=== PATIENT | male | born 1955 | race Caucasian/White ===

== ENCOUNTER 2021-09-25 11:27 | Outpatient (REF) | payer OTHER, SELFPAY ==
[2021-09-25 14:10] LABS: Appearance Urine CLEAR; Color Urine YELLOW; Glucose Urine UA NEG (NEG); Leukocyte Esterase Urine NEG (NEG); Nitrite Urine NEG (NEG); Specific Gravity - Urine 1.025 (1.005-1.025); Urine Blood NEG (NEG); Urine Ketones NEG (NEG); Urine Protein TRACE MG/DL (NEG-TRACE)
[2021-09-25 14:17] LABS: Estimated Average Glucose 157 mg/dL; Hemoglobin A1c % 7.1 %
[2021-09-25 14:21] LABS: Alanine Aminotransferase 17 U/L (0-40); Albumin Level 4.3 g/dL (3.5-5.0); Alkaline Phosphatase 88 U/L (39-117); Anion Gap 13 (12-20); Aspartate Amino Transferase 13 U/L (5-37); Bilirubin Total 0.4 mg/dL (0.0-1.0); Blood Urea Nitrogen 19 mg/dL (9-16); Calcium 9.1 mg/dL (8.4-10.2); Carbon Dioxide 25 mmol/L (22-29); Chloride 107 mmol/L (96-108); Cholesterol 167 mg/dL; Estimated Glomerular Filt Rate > 60; Glucose Fasting 119 mg/dL (60-99); HDL Cholesterol 32 mg/dL; LDL Cholesterol Calculated 116 mg/dl; Potassium 4.1 mmol/L (3.3-5.1); Sodium 141 mmol/L (135-145); Triglycerides 96 mg/dL
[2021-09-25 14:28] LABS: RBC Urine 0-2 /HPF (0); WBC Urine 0 /HPF (0-4)
[2021-09-25 14:39] LABS: TSH reflex Free T4 2.34 uIU/mL (0.32-4.0)
[2021-09-25 14:40] LABS: Microalbum/Creatinine Ratio Ur 122.8 ug/mg cr
[2021-09-25 15:18] LABS: Prostate Specific Antigen Scr 3.96 ng/mL (<0.05-4.0)
== END 2021-09-25 11:28 | disposition home or self-care (01) ==
LOC: HO.HMGCLDS 11:27
PROVIDERS: Visit Provider Internal Medicine
DX: Z00.00 Encounter for general adult medical examination without abnormal findings (principal); Z12.5 Encounter for screening for malignant neoplasm of prostate; E11.9 Type 2 diabetes mellitus without complications; I10 Essential (primary) hypertension
CPT/HCPCS: 36415; 80053; 80061; 81001; 82043; 83036; 84153; 84443

== ENCOUNTER 2022-03-19 08:50 | Outpatient (REF) | payer OTHER, SELFPAY ==
[2022-03-19 12:12] LABS: Creatinine Urine 124.76 mg/dL; Microalbum/Creatinine Ratio Ur 194.7 ug/mg cr
[2022-03-19 12:18] LABS: Estimated Average Glucose 131 mg/dL; Hemoglobin A1c % 6.2 %
[2022-03-19 12:32] LABS: Alanine Aminotransferase 14 U/L (0-40); Albumin Level 4.3 g/dL (3.5-5.0); Alkaline Phosphatase 83 U/L (39-117); Anion Gap 16 (12-20); Aspartate Amino Transferase 14 U/L (5-37); Bilirubin Total 0.8 mg/dL (0.0-1.0); Blood Urea Nitrogen 18 mg/dL (9-16); Calcium 8.8 mg/dL (8.4-10.2); Carbon Dioxide 26 mmol/L (22-29); Chloride 104 mmol/L (96-108); Cholesterol 148 mg/dL; Estimated Glomerular Filt Rate > 60; Glucose Fasting 105 mg/dL (60-99); HDL Cholesterol 29 mg/dL; LDL Cholesterol Calculated 104 mg/dl; Potassium 4.6 mmol/L (3.3-5.1); Sodium 141 mmol/L (135-145); Triglycerides 79 mg/dL
== END 2022-03-19 08:51 | disposition home or self-care (01) ==
LOC: HO.HMGCLDS 08:50
PROVIDERS: PCP Internal Medicine; Visit Provider Internal Medicine
DX: E11.9 Type 2 diabetes mellitus without complications (principal); E78.5 Hyperlipidemia, unspecified; I10 Essential (primary) hypertension
CPT/HCPCS: 36415; 80053; 80061; 82043; 83036

== ENCOUNTER 2022-08-28 15:09 | Outpatient (REF) | payer OTHER, SELFPAY ==
--- NOTE | ~2022-08-28 | CT_ITS ---
EXAMINATION: CT CHEST SCREENING CLINICAL INFORMATION: 54 pack year history. Current smoker. COMPARISON: None. TECHNIQUE: Multidetector volumetric CT imaging of the chest is performed without contrast using low dose technique. Additional 2D coronal and sagittal reformatted images and axial 3D maximum intensity projection (MIP) images are generated on the CT workstation. This CT examination was performed using dose optimization techniques as appropriate, variously including the following: *Automated exposure control *Adjustment of mA and/or kV according to patient size (this includes techniques or standardized protocols for targeted exams where dose is matched to indication/reason for exam; i.e. extremities or head) *Use of iterative reconstruction technique DLP: 160 mGy-cm FINDINGS: LUNGS: Innumerable peripheral or subpleural pulmonary nodules. Largest nodules are measured. 9 mm peripheral or subpleural anterior right upper lobe nodule axial image 117 series 6. 10 mm peripheral or subpleural anterior right upper lobe nodule axial image 151 and 170 series 6. 9 mm peripheral or subpleural left lower lobe nodule axial image 375 series 6. 10 mm peripheral or subpleural right lower lobe nodule axial image 378 series 6. It is possible some of these described peripheral or subpleural nodules actually corresponds to nodular pleural thickening. Focal bronchiolectasis and atelectasis or small infiltrate in the posterior basal left lower lobe. Mild subsegmental atelectasis in the inferior segment of the lingula. MEDIASTINUM: Small mediastinal lymph nodes. No enlarged lymph nodes. Normal heart size. Moderate coronary artery calcification. No pericardial effusion. Upper normal-size thoracic aorta. CORONARY ARTERY CALCIFICATION: Moderate PLEURA: No pleural effusion. No pleural calcification. It is possible some of the previously described peripheral or subpleural pulmonary nodules could represent nodular pleural thickening. AXILLA: Small bilateral axillary lymph nodes. No enlarged axillary lymph nodes or chest wall mass. UPPER ABDOMEN: Left renal cysts. No imaging follow-up recommended. OSSEOUS STRUCTURES: Degenerative changes of the spine. CT/CT lung screening IMPRESSION: Innumerable peripheral or subpleural pulmonary nodules versus nodular pleural thickening. Largest nodules measure 11 mm. No pleural effusion or pleural calcification. Focal bronchiectasis and atelectasis or small infiltrate at the left lung base. Moderate coronary artery calcification. ASSESSMENT: Lung-RADS category 4A: Suspicious RECOMMENDATION: Short-term low-dose chest CT follow-up recommended.
== END 2022-08-28 15:10 | disposition home or self-care (01) ==
LOC: HO.CT 15:09
PROVIDERS: PCP Internal Medicine; Visit Provider Physician Assistant Medical
DX: Z12.2 Encounter for screening for malignant neoplasm of respiratory organs (principal); F17.210 Nicotine dependence, cigarettes, uncomplicated
CPT/HCPCS: 71271; G0296

== ENCOUNTER 2022-10-19 08:30 | Outpatient (REF) | payer OTHER, SELFPAY ==
[2022-10-19 11:51] LABS: Creatinine Urine 117.95 mg/dL; Microalbum/Creatinine Ratio Ur 170.4 ug/mg cr
[2022-10-19 11:55] LABS: Estimated Average Glucose 137 mg/dL; Hemoglobin A1c % 6.4 %
[2022-10-19 12:05] LABS: Alanine Aminotransferase 10 U/L (0-40); Alkaline Phosphatase 82 U/L (39-117); Anion Gap 12 (12-20); Aspartate Amino Transferase 11 U/L (5-37); Bilirubin Total 0.6 mg/dL (0.0-1.0); Blood Urea Nitrogen 15 mg/dL (9-16); Calcium 8.6 mg/dL (8.4-10.2); Carbon Dioxide 27 mmol/L (22-29); Chloride 108 mmol/L (96-108); Cholesterol 149 mg/dL; Estimated Glomerular Filt Rate > 60; Glucose Fasting 137 mg/dL (60-99); HDL Cholesterol 30 mg/dL; LDL Cholesterol Calculated 102 mg/dl; Potassium 4.2 mmol/L (3.3-5.1); Sodium 143 mmol/L (135-145); Total Protein 6.6 g/dL (6.5-8.0); Triglycerides 88 mg/dL
[2022-10-19 12:08] LABS: PSA,Total (Free>4and<10) 4.93 ng/mL (0.00-4.00)
[2022-10-21 23:39] LABS: Free Prostate Spec Ag 0.9 ng/mL; Percent Free Prostate Spec Ag 23 % (calc) (>25)
== END 2022-10-19 08:31 | disposition home or self-care (01) ==
LOC: HO.HMGCLDS 08:30
PROVIDERS: PCP Internal Medicine; Visit Provider Internal Medicine
DX: Z00.00 Encounter for general adult medical examination without abnormal findings (principal); Z12.5 Encounter for screening for malignant neoplasm of prostate; I10 Essential (primary) hypertension; E78.5 Hyperlipidemia, unspecified; E11.9 Type 2 diabetes mellitus without complications
CPT/HCPCS: 36415; 80053; 80061; 82043; 83036; 84153; 84154

== ENCOUNTER 2023-01-18 08:55 | Outpatient (REF) | payer OTHER, SELFPAY ==
[2023-01-19 10:34] LABS: Percent Free Prostate Spec Ag 24 % (calc) (>25); Prostate Specific Ag Total 4.1 ng/mL (< OR = 4.0)
== END 2023-01-18 08:56 | disposition home or self-care (01) ==
LOC: HO.HMGCLDS 08:55
PROVIDERS: PCP Internal Medicine; Visit Provider Internal Medicine
DX: Z12.5 Encounter for screening for malignant neoplasm of prostate (principal); E11.9 Type 2 diabetes mellitus without complications; E78.5 Hyperlipidemia, unspecified; I10 Essential (primary) hypertension; I25.10 Atherosclerotic heart disease of native coronary artery without angina pectoris; I25.84 Coronary atherosclerosis due to calcified coronary lesion; N40.0 Benign prostatic hyperplasia without lower urinary tract symptoms; R97.20 Elevated prostate specific antigen [PSA]
CPT/HCPCS: 36415; 80053; 80061; 83036; 84153; 84154; 85025

== ENCOUNTER 2023-01-20 10:18 | Outpatient (AMB) | payer OTHER, SELFPAY ==
[2023-01-20 10:30] VITALS: BP 118/74; PULSE 57; O2SAT 95; BMI 30.3
--- NOTE | 2023-01-20 10:30 | MHC.PC.OV ---
Vital Signs 01/20/23 10:30 Height 5 ft 11 in Weight 217 lb BMI 30.3 BP 118/74 Blood Pressure Location Lt brachial Position Sitting Pulse 57 Pulse Source Pulse Oximeter Pulse Oximetry (%) 95 Oxygen Delivery Method Room Air Intake Visit Reasons: 3m follow up Intake Note: Pt is here today for 3 months follow up visit. Allergies Penicillins Allergy (Verified 01/20/23 10:35) Rash [id number] Reductase Inhibitor Adverse Reaction (Intermediate, Verified 01/20/23 10:35) LEG PAIN Medication List - Last Reconciled 01/20/23 by Beronica Kim MD amlodipine 10 mg PO DAILY atenolol 100 mg PO DAILY doxazosin 4 mg PO DAILY gabapentin 600 mg PO BEDTIME gabapentin 300 mg PO BEDTIME insulin glargine (Basaglar KwikPen U-100 Insulin) 60 units (0.6 mL) subcut QPM lisinopril 20 mg PO DAILY metformin 1,000 mg PO BID miscellaneous medical supply 1 ea miscellaneous .qd pen needle, diabetic (BD Ultra-Fine Mini Pen Needle) As directed sitagliptin phosphate (Januvia) 50 mg PO DAILY tamsulosin 0.4 mg PO BEDTIME trazodone 50 mg PO BEDTIME PRN varenicline 1 mg PO BID 12 weeks Tobacco use date assessed: 07/22/22 Dental Screening Dental Screen Date: 01/20/23 Did you have a dental visit in the last 12 months?: No Did you have a dental problem in the last 6 months where you did not have access to dental care?: No Was dental information given to patient?: Patient declined HPI 3m follow up HPI Details Patient presents for the follow-up of type 2 diabetes hypertension and hyperlipidemia. Patient did not start taking Crestor stating he could not tolerated it in the past. FORMERLY [facility], [facility] Medical History (Updated 01/20/23 @ 11:18 by Beronica Kim MD) BPH (benign prostatic hyperplasia) Colonoscopy refused DM type 2 (diabetes mellitus, type 2) HTN (hypertension) Neuropathy Nicotine dependence, cigarettes, uncomplicated Sleep apnea Surgical History History of dental surgery Family History Father No problems noted. Mother Hypertension Diabetes Social History Household Members Other:: , retired, well balanced, Housing: House Patient Tobacco Use Status: Current everyday Tobacco user Tobacco use type: Cigarette Cigarettes Per Day: 10 Years Smoked: (current smoker - onset 12yo, 1-2ppd x 57yrs, now 1/2ppd - 72pyh) e-Cigarette/Vaping Use: Never Used service: Yes Current occupational status: retired Cognitive needs: No Hearing needs: No Vision needs: Yes Questionnaire Thrive Questionnaire Date Thrive assessed: 10/21/22 DOMONIQUE-7 AMB Questionnaire DOMONIQUE-7 Date DOMONIQUE - 7 assessed: 10/21/22 Source: Developed by Drs. Reji Gay, Melissa Bacon, Kiko De La Torre and colleagues, with an educational feliciano from [employer]. Review of Systems Const All systems reviewed & are unremarkable except as noted in HPI and below Reports no additional complaints Eyes Reports no additional complaints ENT Reports no additional complaints Card Reports no additional complaints Resp Reports no additional complaints GI Reports no additional complaints Reports no additional complaints Physical exam (Primary Care) Vital Signs: Last Vital Signs Pulse 57 01/20/23 10:30 BP 118/74 01/20/23 10:30 Pulse Ox 95 01/20/23 10:30 Oxygen Delivery Method Room Air 01/20/23 10:30 BMI result Body Mass Index 30.3 Tobacco/Smoking Status: Tobacco use Status Tobacco use date assessed 07/22/22 01/20/23 10:30 Patient Tobacco Use Status Current everyday Tobacco 01/20/23 10:30 Tobacco use type Cigarette 01/20/23 10:30 e-Cigarette/Vaping Use Never Used 01/20/23 10:30 Thrive Assessment: Date of Thrive Assessment Date Thrive assessed 10/21/22 01/20/23 10:30 Const General: no acute distress HENMT Head: Yes normal to inspection Ears: hearing grossly normal bilaterally Neck Neck: Yes supple Resp Effort & Inspection: normal respiratory effort Auscultation: clear to auscultation bilaterally Cardio Rhythm: regular rhythm Heart sounds: S1 normal heart sound present and S2 normal heart sound present GI Inspection: Yes normal to inspection Assessment and Plan Assessment & Plan (1) HTN (hypertension): Code(s): I10 - Essential (primary) hypertension Plan: Increase lisinopril to 40 mg in decrease amlodipine to 5 mg a day for microalbuminuria. Patient will continue atenolol. Check basic metabolic panel in 2 weeks and follow-up for blood pressure check in 6 weeks (2) DM type 2 (diabetes mellitus, type 2): Comment: A1c is 6.4, 11/01 Code(s): E11.9 - Type 2 diabetes mellitus without complications Plan: A1c is down to 5.7. ADA diet regular exercise discussed with the patient. Januvia will be discontinue and Farxiga 5 mg daily will be added instead. Patient will continue metformin and will decrease insulin to 50 units to avoid hypoglycemia (3) Lung nodule, multiple: Comment: CT scan 08/03, unchanged since 2015, annual Code(s): R91.8 - Other nonspecific abnormal finding of lung field (4) Microalbuminuria: Code(s): R80.9 - Proteinuria, unspecified Plan: Increase lisinopril to 40 mg and add Farxiga (5) Hyperlipidemia: Comment: intolerant to statins, patient refuses to take medications for hyperlipidemia Code(s): E78.5 - Hyperlipidemia, unspecified Orders: Orders Basic Metabolic Panel 2 Weeks E11.9 - Type 2 diabetes mellitus without complications, I10 - Essential (primary) hypertension Medications: New Farxiga (dapagliflozin propanediol) 5 mg PO DAILY 90 tabs 1RF NS amlodipine 5 mg PO DAILY 60 tabs 0RF Discontinued sitagliptin phosphate (Januvia) Discontinued Reason: Doctor's Order 50 mg PO DAILY 90 tabs 3RF amlodipine Discontinued Reason: Doctor's Order 10 mg PO DAILY 90 tabs 3RF Coding Level of Care Code Est Pt Level 4 (19975) Diagnoses HTN (hypertension) I10 DM type 2 (diabetes mellitus, type 2) E11.9 Lung nodule, multiple R91.8 Microalbuminuria R80.9 Hyperlipidemia E78.5
== END 2023-01-20 11:19 | disposition home or self-care (01) ==
PROVIDERS: Visit Provider Internal Medicine
DX: I10 Essential (primary) hypertension (principal); E11.9 Type 2 diabetes mellitus without complications; R91.8 Other nonspecific abnormal finding of lung field; R80.9 Proteinuria, unspecified; E78.5 Hyperlipidemia, unspecified
CPT/HCPCS: 99214

== ENCOUNTER → 2023-01-22 10:53 | Outpatient (REF) | payer OTHER, SELFPAY ==
--- NOTE | 2023-01-22 10:56 | CA_ITS ---
Transthoracic Echocardiogram Patient (Last, First, Middle): Garcia Brandt, Gender: Male Date of : 1955 Age: 67 Procedure Date: 01/22/2023 Procedure Type: Transthoracic Echocardiogram Location: OP Height: 180.34 cm Weight: 98.43 kg BSA: 2.18 m2 Heart Rate: 52 bpm BP: 125 / 65 mmHg Medical Officer Psychiatry: PAUL Referring MD: Beronica Kim MD Associate Designer: De Puri MD Symptoms: R06.09 - Other forms of dyspnea Study Quality: Good ECG Rhythm: Bradycardia Conclusions: - 1. Normal LV ejection fraction with mild LVH with normal filling pattern 2. Cardiac valvular Dopplers within normal limits 3. Mildly dilated ascending aorta at 3.9 cm 4. Normal RV systolic pressure 5. No gross pericardial effusion Findings Left Ventricle Normal left ventricular size and systolic function. There is mildly increased left ventricular wall thickness. The visually estimated ejection fraction is between 60-65%. Spectral Doppler is indicative of a normal filling pattern. E/E prime ratio is between 8 and 15 consistent with indeterminate filling pressures. Right Ventricle Normal right ventricular cavity size and systolic function. Atria Both atria are normal in size. There is no evidence of interatrial shunt. Aortic Valve There is mild calcification of the aortic valve. There is no aortic valve stenosis. There is no aortic valve regurgitation. Mitral Valve Normal mitral valve structure and function. There is trace mitral valve regurgitation. There is no mitral valve stenosis. Pulmonic Valve The pulmonic valve is likely normal. There is trace pulmonic valve regurgitation. Tricuspid Valve Normal tricuspid valve structure. There is mild tricuspid valve regurgitation. The right ventricular systolic pressure is normal. The right ventricular systolic pressure is 27 mmHg. Normal right atrial pressure. There is no evidence of pulmonary hypertension. Great Vessels The pulmonary artery was not well visualized. There is mild dilatation of the ascending aorta measuring 3.90 cm. Venous The inferior vena cava is normal in size and collapses greater than 50% with inspiration. Pericardium/Pleural There is no evidence of pericardial effusion. Prior Study Comparison No prior study available for comparison. Measurements 2D Linear Measurements IVSd: 1.28 0.6-0.9/0.6-1.0 cm LVIDd: 4.68 3.9-5.3/4.2-5.9 cm LVIDd Index: 2.15 2.4-3.2/2.2-3.1 cm/m2 LVIDs: 2.77 2.0-3.6 cm LVPWd: 1.22 0.7-1.1 cm LA Diam: 3.70 2.7-3.8/3.0-4.0 cm LAIDs Index: 1.70 1.5-2.3 cm/m2 LV Mass: 278.35 67-162/88-224 g LV Mass Index: 127.68 43-95/49-115 g/m2 LVOT Diam: 1.80 3.0+(-)1.3 cm 2D Systolic Function EF 4C: 56.70 >55% EF 2C: 72.80 >55% EF BiP: 66.50 >55% Mitral Valve MV Pk E: 0.97 MV PK A: 0.85 MV Decel Time: 199.00 E/A: 1.10 E'Lateral: 9.03 E'Medial: 6.20 E/E' Med: 15.60 E/E' Lat: 10.70 PHT: 58.00 MVA PHT: 3.79 Decel [place]: 4.87 Aortic Valve AoV Pk Fran: 1.51 AoV Mn Fran: 1.07 AoV VTI: 0.36 AoV Pk Grad: 9.00 Aov Mn Grad: 5.00 ROBERT Cont.VTI: 1.72 LVOT LVOT Pk Fran: 1.18 LVOT Mn Fran: 0.68 LVOT VTI: 0.24 LVOT Pk Grad: 6.00 LVOT Mn Grad: 2.00 LVOT Diam: 1.80 LVOT Area: 2.54 Diastolic Function MV Pk E: 0.97 MV Pk A: 0.85 E/A: 1.10 E'Medial: 6.20 E/E' Med: 15.60 E' Laterial: 9.03 E/E' Lat: 10.70 Right Ventricle TAPSE (mm): 25.60 TVS' Fran: 16.00 Tricuspid Valve TR Pk Fran: 2.43 TR Pk Grad: 24.00 RA Press: 3.00 RVSP: 27.00 Great Vessels Aorta Sinus of Valsalva: 3.50 2.0-3.5 cm Ao Asc: 3.90 2.1-3.4 cm Pulmonary Valve PV Pk Fran: 1.11 Peak PV Grad: 5.00 Updated in Other Vendor System with Status of Final De Puri MD electronically signed on 01/23/2023 3:16:28 PM with status of Final
== END ==
LOC: HO.CARD 10:53
PROVIDERS: PCP Internal Medicine; Visit Provider Internal Medicine
DX: I25.10 Atherosclerotic heart disease of native coronary artery without angina pectoris (principal); I25.84 Coronary atherosclerosis due to calcified coronary lesion; R06.09 Other forms of dyspnea
CPT/HCPCS: 93306

== ENCOUNTER → 2023-01-22 10:56 | Outpatient (BNV) | payer OTHER, SELFPAY | PROVIDERS: PCP Internal Medicine; Visit Provider Internal Medicine Cardiovascular Disease | DX: R06.00 Dyspnea, unspecified (principal) | CPT/HCPCS: 93306 ==

== ENCOUNTER 2023-02-04 10:06 | Outpatient (REF) | payer OTHER, SELFPAY ==
[2023-02-04 14:12] LABS: Anion Gap 14 (12-20); Blood Urea Nitrogen 18 mg/dL (9-16); Calcium 9.1 mg/dL (8.4-10.2); Carbon Dioxide 24 mmol/L (22-29); Chloride 107 mmol/L (96-108); Estimated Glomerular Filt Rate > 60; Glucose Random 83 mg/dL (60-115); Potassium 4.2 mmol/L (3.3-5.1); Sodium 141 mmol/L (135-145)
== END 2023-02-04 10:07 | disposition home or self-care (01) ==
LOC: HO.HMGCLDS 10:06
PROVIDERS: PCP Internal Medicine; Visit Provider Internal Medicine
DX: I10 Essential (primary) hypertension (principal); E11.9 Type 2 diabetes mellitus without complications
CPT/HCPCS: 36415; 80048

== ENCOUNTER 2023-03-01 09:22 | Outpatient (REF) | payer OTHER, SELFPAY ==
[2023-03-01 11:27] LABS: MANUAL DIFF FLAG NO
[2023-03-01 12:09] LABS: Hemoglobin 14.6 g/dl (14.0-18.0); Mean Corpuscular HGB Conc 32.4 g/dl (31.0-36.0); Mean Corpuscular Hemoglobin 28.5 pg (27.0-33.0); Mean Corpuscular Volume 87.7 fL (80.0-98.0); Platelet Count 231 X10*3/uL (160-400); Red Blood Count 5.13 X10*6/uL (4.60-5.80); Red Cell Distribution Width 13.5 % (11.0-16.0); White Blood Count 12.1 X10*3/uL (4.8-10.8)
[2023-03-01 12:10] LABS: Basophils Percent Auto 0.2 % (0-2); Eosinophils Absolute Auto 0.2 X10*3/uL (0.0-0.4); Eosinophils Percent Auto 1.4 % (0-4); Imm Gran Abs Auto 0.05 X10*3/uL (0.00-0.03); Imm Gran Pct Auto 0.4 % (0.0-0.4); Lymphocytes Absolute Auto 2.1 X10*3/uL (1.2-4.9); Lymphocytes Percent Auto 17.4 % (20-40); Mean Platelet Volume 9.9 fL (9.4-12.4); Monocytes Absolute Auto 0.7 X10*3/uL (0.1-1.2); Monocytes Percent Auto 6.1 % (2-11); Neutrophils Percent Auto 74.5 % (45-73)
[2023-03-01 12:41] LABS: Alanine Aminotransferase 13 U/L (0-40); Albumin Level 4.1 g/dL (3.5-5.0); Alkaline Phosphatase 69 U/L (39-117); Anion Gap 10 (12-20); Aspartate Amino Transferase 12 U/L (5-37); Bilirubin Total 0.5 mg/dL (0.0-1.0); Blood Urea Nitrogen 17 mg/dL (9-16); Calcium 9.6 mg/dL (8.4-10.2); Carbon Dioxide 27 mmol/L (22-29); Chloride 108 mmol/L (96-108); Cholesterol 144 mg/dL (<200); Estimated Glomerular Filt Rate > 60; Glucose Fasting 118 mg/dL (60-99); HDL Cholesterol 31 mg/dL (>40); LDL Cholesterol Calculated 94 mg/dL (<100); Potassium 4.1 mmol/L (3.3-5.1); Sodium 141 mmol/L (135-145); Total Protein 7.1 g/dL (6.5-8.0); Triglycerides 97 mg/dL (<150)
[2023-03-01 12:43] LABS: Estimated Average Glucose 126 mg/dL
[2023-03-01 12:54] LABS: Creatinine Urine 108.38 mg/dL
== END 2023-03-01 09:23 | disposition home or self-care (01) ==
LOC: HO.HMGCLDS 09:22
PROVIDERS: PCP Internal Medicine; Visit Provider Internal Medicine
DX: E11.9 Type 2 diabetes mellitus without complications (principal); I10 Essential (primary) hypertension; I25.10 Atherosclerotic heart disease of native coronary artery without angina pectoris; I25.84 Coronary atherosclerosis due to calcified coronary lesion; R80.9 Proteinuria, unspecified; E78.5 Hyperlipidemia, unspecified
CPT/HCPCS: 36415; 80053; 80061; 82043; 83036; 85025

== ENCOUNTER 2023-03-03 10:18 | Outpatient (AMB) | payer OTHER, SELFPAY ==
[2023-03-03 10:28] VITALS: BP 124/70; PULSE 63; O2SAT 94; BMI 29.7
--- NOTE | 2023-03-03 10:28 | MHC.PC.OV ---
Vital Signs 03/03/23 10:28 Height 5 ft 11 in Weight 213 lb BMI 29.7 BP 124/70 Blood Pressure Location Lt brachial Position Sitting Pulse 63 Pulse Source Pulse Oximeter Pulse Oximetry (%) 94 Oxygen Delivery Method Room Air Intake Visit Reasons: 6 week follow up Intake Note: Pt is here today for 6 weeks follow up visit. Allergies Penicillins Allergy (Verified 03/03/23 10:37) Rash Gjxiklb-PAJ-QlG Reductase Inhibitor Adverse Reaction (Intermediate, Verified 03/03/23 10:37) LEG PAIN dapagliflozin [From [facility]] Adverse Reaction (Verified 03/03/23 10:38) frequent urination and painful urination Medication List - Last Reconciled 03/03/23 by Beronica Kim MD amlodipine 5 mg PO DAILY atenolol 100 mg PO DAILY doxazosin 4 mg PO DAILY finasteride 5 mg PO DAILY gabapentin 600 mg PO BEDTIME gabapentin 300 mg PO BEDTIME insulin glargine (Basaglar KwikPen U-100 Insulin) 60 units (0.6 mL) subcut QPM lisinopril 20 mg PO DAILY metformin 1,000 mg PO BID miscellaneous medical supply 1 ea miscellaneous .qd pen needle, diabetic (BD Ultra-Fine Mini Pen Needle) As directed tamsulosin 0.4 mg PO BEDTIME trazodone 50 mg PO BEDTIME PRN varenicline 1 mg PO BID 12 weeks Tobacco use date assessed: 03/03/23 Dental Screening Dental Screen Date: 03/03/23 Did you have a dental visit in the last 12 months?: No Did you have a dental problem in the last 6 months where you did not have access to dental care?: No Was dental information given to patient?: Patient declined HPI 6 week follow up HPI Details Patient presents for the follow-up of type 2 diabetes hypertension hyperlipidemia. He developed increased urinary frequency from [facility] and stopped taking it after 2 weeks. Patient still reports increased urinary frequency and incomplete bladder emptying nocturia and dysuria for 3 weeks. He denies fever chills back pain nausea vomiting. [facility] Medical History (Updated 03/03/23 @ 15:05 by Beronica Kim MD) BPH (benign prostatic hyperplasia) Colonoscopy refused DM type 2 (diabetes mellitus, type 2) HTN (hypertension) Neuropathy Nicotine dependence, cigarettes, uncomplicated Sleep apnea Surgical History History of dental surgery Family History Father No problems noted. Mother Hypertension Diabetes Social History Household Members Other:: , retired, well balanced, Housing: House Patient Tobacco Use Status: Current everyday Tobacco user Tobacco use type: Cigarette Cigarettes Per Day: 10 Years Smoked: (current smoker - onset 12yo, 1-2ppd x 57yrs, now 1/2ppd - 70pyh) e-Cigarette/Vaping Use: Never Used service: Yes Current occupational status: retired Cognitive needs: No Hearing needs: No Vision needs: Yes Questionnaire Thrive Questionnaire Date Thrive assessed: 10/21/22 DOMONIQUE-7 AMB Questionnaire DOMONIQUE-7 Date DOMONIQUE - 7 assessed: 10/21/22 Source: Developed by Drs. Reji Gay, Melissa Bacon, Kiko De La Torre and colleagues, with an educational feliciano from [employer]. Review of Systems Const All systems reviewed & are unremarkable except as noted in HPI and below Reports no additional complaints Eyes Reports no additional complaints ENT Reports no additional complaints Card Reports no additional complaints Resp Reports no additional complaints GI Reports no additional complaints Reports no additional complaints Physical exam (Primary Care) Vital Signs: Last Vital Signs Pulse 63 03/03/23 10:28 BP 124/70 03/03/23 10:28 Pulse Ox 94 03/03/23 10:28 Oxygen Delivery Method Room Air 03/03/23 10:28 BMI result Body Mass Index 29.7 Tobacco/Smoking Status: Tobacco use Status Tobacco use date assessed 03/03/23 03/03/23 10:41 Patient Tobacco Use Status Current everyday Tobacco 03/03/23 10:28 Tobacco use type Cigarette 03/03/23 10:28 e-Cigarette/Vaping Use Never Used 03/03/23 10:28 Thrive Assessment: Date of Thrive Assessment Date Thrive assessed 10/21/22 03/03/23 10:28 Const General: no acute distress HENMT Head: Yes normal to inspection Face and sinus: Yes normal facial exam Eyes General: appearance normal, both eyes and all related structures Neck Neck: Yes supple Resp Effort & Inspection: normal respiratory effort Auscultation: clear to auscultation bilaterally Cardio Rhythm: regular rhythm Heart sounds: S1 normal heart sound present and S2 normal heart sound present GI Inspection: Yes normal to inspection Palpation (GI): Soft to palpation Percussion: Yes normal to percussion Auscultation: normal bowel sounds General: Yes no CVA tenderness Back/Spine/Pelvis Back: no CVA tenderness Results AMB Urinalysis, Automated UA Leukoctes 500 Giovanni/uL Last Edit by Vida Frank [facility] on 03/03/23 12:35 3+ Vida Frank 03/03/23 12:35 UA Nitrite Positive Last Edit by Vida Frank [facility] on 03/03/23 12:35 UA Urobilinogen 0.2 mg/dL Last Edit by Vida Frank [facility] on 03/03/23 12:35 UA Protein 30 mg/dL Last Edit by Vida Frank [facility] on 03/03/23 12:35 1+ Vida Frank 03/03/23 12:35 UA pH 6.0 Last Edit by Vida Frank [facility] on 03/03/23 12:35 UA Blood 80 Danial/uL Last Edit by Vida Frank [facility] on 03/03/23 12:35 2+ Vida Frank 03/03/23 12:35 UA Specific Center 1.025 Last Edit by Vida Frank [facility] on 03/03/23 12:35 UA Ketone Negative Last Edit by Vida Frank [facility] on 03/03/23 12:35 UA Bilirubin 0 mg/dL Last Edit by Vida Frank [facility] on 03/03/23 12:35 UA Glucose 0 mg/dL Last Edit by Vida Frank [facility] on 03/03/23 12:35 Results Reviewed Results Reviewed: Laboratory Last Values Urine pH (Auto) 6.0 03/03/23 12:33 Specific Center (Auto) 1.025 03/03/23 12:33 Urine Protein (Auto) 30 mg/dL 03/03/23 12:33 Glucose (UA)(Auto) 0 mg/dL 03/03/23 12:33 Urine Ketones (Auto) Negative 03/03/23 12:33 Urine Blood (Auto) 80 Danial/uL 03/03/23 12:33 Urine Nitrite (Auto) Positive 03/03/23 12:33 Urine Bilirubin (Auto) 0 mg/dL 03/03/23 12:33 Urine Urobilinogen (Auto) 0.2 mg/dL 03/03/23 12:33 Leukocyte Esterase (Auto) 500 Giovanni/uL 03/03/23 12:33 Assessment and Plan Assessment & Plan (1) UTI (urinary tract infection): Code(s): N39.0 - Urinary tract infection, site not specified Plan: Check UA and urine culture tx with Cipro 500 mg bid for 10 days (2) BPH (benign prostatic hyperplasia): Comment: PSA 4.7 Code(s): N40.0 - Benign prostatic hyperplasia without lower urinary tract symptoms Plan: Obtain bladder scan to rule out acute obstruction/ incomplete bladder emptying. Continue Flomax, doxazosin and add finasteride. Referred to urology (3) HTN (hypertension): Code(s): I10 - Essential (primary) hypertension Plan: cont meds (4) Hyperlipidemia: Comment: intolerant to statins, patient refuses to take medications for hyperlipidemia Code(s): E78.5 - Hyperlipidemia, unspecified (5) DM type 2 (diabetes mellitus, type 2): Comment: A1c is 6.4, 11/01, A1C 6.0 03/03, Farxiga caused polyuria Code(s): E11.9 - Type 2 diabetes mellitus without complications Plan: a1c is 6.0 , cont ADA diet, exercise, weight loss, meds, f/u in 3 mths (6) Screening for AAA (abdominal aortic aneurysm): Comment: (The USPTF recommends men age 65-75 who have ever smoked have a one-time AAA screening with abdominal ultrasound - Code(s): Z13.6 - Encounter for screening for cardiovascular disorders (7) Nicotine dependence, cigarettes, uncomplicated: Comment: (current smoker - onset 12yo, 1-2ppd x 55yrs, now 1/2ppd - 70pyh) Code(s): F17.210 - Nicotine dependence, cigarettes, uncomplicated Plan: tobacco quitting, check Abd US to r/o AAA Orders: Orders UA CC w/rflx Micro + Cult Today N39.0 - Urinary tract infection, site not specified US bladder Today N39.0 - Urinary tract infection, site not specified, N40.0 - Benign prostatic hyperplasia without lower urinary tract symptoms Comprehensive [place]. Panel Fast 3 Months E11.9 - Type 2 diabetes mellitus without complications, E78.5 - Hyperlipidemia, unspecified, I10 - Essential (primary) hypertension, Z13.6 - Encounter for screening for cardiovascular disorders Lipid Panel 3 Months E11.9 - Type 2 diabetes mellitus without complications, E78.5 - Hyperlipidemia, unspecified, I10 - Essential (primary) hypertension, Z13.6 - Encounter for screening for cardiovascular disorders Hemoglobin A1c 3 Months E11.9 - Type 2 diabetes mellitus without complications, E78.5 - Hyperlipidemia, unspecified, I10 - Essential (primary) hypertension, Z13.6 - Encounter for screening for cardiovascular disorders Complete Blood Count Auto Diff 3 Months E11.9 - Type 2 diabetes mellitus without complications, E78.5 - Hyperlipidemia, unspecified, I10 - Essential (primary) hypertension, Z13.6 - Encounter for screening for cardiovascular disorders US abdominal aortic aneurysm Today F17.210 - Nicotine dependence, cigarettes, uncomplicated AMB Urinalysis Automated Today Z13.9 - Encounter for screening, unspecified Referrals Urology Referral N39.0 - Urinary tract infection, site not specified, N40.0 - Benign prostatic hyperplasia without lower urinary tract symptoms Medications: New finasteride 5 mg PO DAILY 90 tabs 1RF ciprofloxacin HCl 500 mg PO BID 20 tabs 0RF Changed From tamsulosin 0.4 mg PO BEDTIME 90 caps 3RF To tamsulosin 0.8 mg (2 x 0.4 mg) PO BEDTIME 90 caps 3RF Coding Level of Care Code Est Pt Level 4 (76954) Diagnoses UTI (urinary tract infection) N39.0 BPH (benign prostatic hyperplasia) N40.0 HTN (hypertension) I10 Hyperlipidemia E78.5 DM type 2 (diabetes mellitus, type 2) E11.9 Screening for AAA (abdominal aortic aneurysm) Z13.6 Nicotine dependence, cigarettes, uncomplicated F17.210
== END 2023-03-03 15:06 | disposition home or self-care (01) ==
PROVIDERS: PCP Internal Medicine; Visit Provider Internal Medicine
DX: N39.0 Urinary tract infection, site not specified (principal); N40.0 Benign prostatic hyperplasia without lower urinary tract symptoms; I10 Essential (primary) hypertension; E11.9 Type 2 diabetes mellitus without complications; F17.210 Nicotine dependence, cigarettes, uncomplicated; E78.5 Hyperlipidemia, unspecified
CPT/HCPCS: 81003; 99214

== ENCOUNTER 2023-03-03 11:26 | Outpatient (REF) | payer OTHER, SELFPAY ==
--- NOTE | ~2023-03-03 | US_ITS ---
EXAMINATION: US PELVIS LIMITED (BLADDER) CLINICAL INFORMATION: Urinary tract infection. COMPARISON: None available. TECHNIQUE: Real-time imaging of the bladder. FINDINGS: BLADDER: Mild to moderately distended with mild trabeculation. Small diverticulum measuring up to 0.9 cm. Small dependent intraluminal sediment. Bilateral ureteral jets are demonstrated. Prevoid bladder volume is 228 mL. Postvoid bladder volume is 182 mL. PROSTATE: Moderately enlarged with a volume of 50 cc. US/US bladder IMPRESSION: Urinary bladder findings detailed above consistent with chronic retention likely secondary to moderate prostatomegaly.
[2023-03-03 14:14] LABS: Appearance Urine Turbid; Color Urine Yellow; Glucose Urine UA Negative (Negative); Leukocyte Esterase Urine Large (3+) (Negative); Nitrite Urine Positive (Negative); PH 5.5 (5.0-9.0); UMIC TRIGGER UACC YES; Urine Blood Moderate (2+) (Negative); Urine Ketones Negative (Negative); Urine Protein 100 (2+) mg/dL (Neg-Trace)
[2023-03-03 14:19] LABS: Bacteria Urine 4+ (None Seen); Hyaline Casts Urine 0-2 /LPF (0-2); UACC Culture Trigger YES; WBC Urine >50 /HPF (0-5)
== END 2023-03-03 11:27 | disposition home or self-care (01) ==
LOC: HO.HMGCX 11:26
PROVIDERS: Absent Provider Internal Medicine; PCP Internal Medicine; Visit Provider Internal Medicine
DX: N39.0 Urinary tract infection, site not specified (principal); N40.0 Benign prostatic hyperplasia without lower urinary tract symptoms
CPT/HCPCS: 76857; 81001; 81003; 87086; 87088; 87186

== ENCOUNTER 2023-04-16 09:46 | Outpatient (REF) | payer OTHER, SELFPAY | END 2023-04-16 09:47 | disposition home or self-care (01) | LOC: HO.US 09:46 | PROVIDERS: PCP Internal Medicine; Visit Provider Internal Medicine | DX: Z13.6 Encounter for screening for cardiovascular disorders (principal); F17.210 Nicotine dependence, cigarettes, uncomplicated | CPT/HCPCS: 76706 ==

== ENCOUNTER 2023-06-10 08:45 | Outpatient (REF) | payer OTHER, SELFPAY ==
[2023-06-10 11:52] LABS: MANUAL DIFF FLAG NO
[2023-06-10 12:07] LABS: Estimated Average Glucose 131 mg/dL; Hemoglobin A1c % 6.2 % (<6.0)
[2023-06-10 12:17] LABS: Alanine Aminotransferase 17 U/L (0-40); Albumin Level 4.1 g/dL (3.5-5.0); Alkaline Phosphatase 78 U/L (39-117); Anion Gap 8 (12-20); Aspartate Amino Transferase 15 U/L (5-37); Bilirubin Total 0.6 mg/dL (0.0-1.0); Blood Urea Nitrogen 16 mg/dL (9-16); Calcium 8.9 mg/dL (8.4-10.2); Carbon Dioxide 28 mmol/L (22-29); Chloride 107 mmol/L (96-108); Cholesterol 156 mg/dL (<200); Estimated Glomerular Filt Rate > 60; Glucose Fasting 140 mg/dL (60-99); HDL Cholesterol 32 mg/dL (>40); LDL Cholesterol Calculated 106 mg/dL (<100); Sodium 139 mmol/L (135-145); Total Protein 6.8 g/dL (6.5-8.0); Triglycerides 94 mg/dL (<150)
[2023-06-10 12:18] LABS: Basophils Percent Auto 0.5 % (0-2); Eosinophils Absolute Auto 0.2 X10*3/uL (0.0-0.4); Eosinophils Percent Auto 2.2 % (0-4); Hematocrit 45.7 % (42.0-52.0); Hemoglobin 14.7 g/dl (14.0-18.0); Imm Gran Abs Auto 0.02 X10*3/uL (0.00-0.03); Imm Gran Pct Auto 0.3 % (0.0-0.4); Lymphocytes Percent Auto 25.6 % (20-40); Mean Corpuscular HGB Conc 32.2 g/dl (31.0-36.0); Mean Corpuscular Hemoglobin 28.7 pg (27.0-33.0); Mean Corpuscular Volume 89.3 fL (80.0-98.0); Mean Platelet Volume 10.3 fL (9.4-12.4); Monocytes Absolute Auto 0.5 X10*3/uL (0.1-1.2); Neutrophils Percent Auto 65.4 % (45-73); Platelet Count 195 X10*3/uL (160-400); Red Blood Count 5.12 X10*6/uL (4.60-5.80); Red Cell Distribution Width 13.2 % (11.0-16.0); White Blood Count 7.7 X10*3/uL (4.8-10.8)
== END 2023-06-10 08:46 | disposition home or self-care (01) ==
LOC: HO.HMGCLDS 08:45
PROVIDERS: PCP Internal Medicine; Visit Provider Internal Medicine
DX: Z13.6 Encounter for screening for cardiovascular disorders (principal); I10 Essential (primary) hypertension; E11.9 Type 2 diabetes mellitus without complications; E78.5 Hyperlipidemia, unspecified
CPT/HCPCS: 36415; 80053; 80061; 83036; 85025

== ENCOUNTER 2023-06-11 11:38 | Outpatient (AMB) | payer OTHER, SELFPAY ==
[2023-06-11 12:18] VITALS: BP 140/78; PULSE 52; O2SAT 95; BMI 30.3
--- NOTE | 2023-06-11 12:18 | MHC.PC.OV ---
Vital Signs 06/11/23 12:18 Height 5 ft 11 in Weight 217 lb 4 oz BMI 30.3 BP 140/78 H Blood Pressure Location Rt brachial Position Sitting Pulse 52 Pulse Source Pulse Oximeter Pulse Oximetry (%) 95 Oxygen Delivery Method Room Air Intake Visit Reasons: 3 month follow up DM Intake Note: Pt is here to follow up for lab results Allergies Penicillins Allergy (Verified 06/11/23 12:20) Rash Vccydfb-JRF-GoQ Reductase Inhibitor Adverse Reaction (Intermediate, Verified 06/11/23 12:20) LEG PAIN dapagliflozin [From [facility]] Adverse Reaction (Verified 06/11/23 12:20) frequent urination and painful urination Medication List - Last Reconciled 06/11/23 by Beronica Kim MD amlodipine 5 mg PO DAILY atenolol 100 mg PO DAILY doxazosin 4 mg PO DAILY finasteride 5 mg PO DAILY gabapentin 300 mg PO BEDTIME gabapentin 600 mg PO BEDTIME insulin glargine (Basaglar KwikPen U-100 Insulin) 60 units (0.6 mL) subcut QPM lisinopril 40 mg PO DAILY metformin 1,000 mg PO BID miscellaneous medical supply 1 ea miscellaneous .qd pen needle, diabetic (Droplet Micron Pen Needle) Use to inject insulin with pen daily tamsulosin 0.8 mg (2 x 0.4 mg) PO BEDTIME trazodone 50 mg PO BEDTIME PRN varenicline 1 mg PO BID 12 weeks Tobacco use date assessed: 06/11/23 Fall risk assessment: No Falls in past year Last assessed Fall Risk: 06/11/23 Dental Screening Dental Screen Date: 06/11/23 Did you have a dental visit in the last 12 months?: No Did you have a dental problem in the last 6 months where you did not have access to dental care?: No Was dental information given to patient?: No HPI 3 month follow up DM HPI Details Pt presents for DM2, HTN, BPH PFSH Medical History (Updated 06/11/23 @ 14:08 by Beronica Kim MD) Nicotine dependence, cigarettes, uncomplicated Colonoscopy refused Neuropathy Sleep apnea BPH (benign prostatic hyperplasia) DM type 2 (diabetes mellitus, type 2) HTN (hypertension) Surgical History History of dental surgery Family History Father No problems noted. Mother Hypertension Diabetes Social History Household Members Other:: , retired, well balanced, Housing: House Patient Tobacco Use Status: Current everyday Tobacco user Tobacco use type: Cigarette Cigarettes Per Day: 10 Years Smoked: (current smoker - onset 12yo, 1-2ppd x 57yrs, now 1/2ppd - 70pyh) e-Cigarette/Vaping Use: Never Used service: Yes Current occupational status: retired Cognitive needs: No Hearing needs: No Vision needs: Yes Questionnaire Thrive Questionnaire Date Thrive assessed: 10/21/22 DOMONIQUE-7 AMB Questionnaire DOMONIQUE-7 Date DOMONIQUE - 7 assessed: 10/21/22 Source: Developed by Drs. Reji Gay, Melissa Bacon, Kiko De La Torre and colleagues, with an educational feliciano from [employer]. Review of Systems Const All systems reviewed & are unremarkable except as noted in HPI and below Reports no additional complaints Eyes Reports no additional complaints ENT Reports no additional complaints Card Reports no additional complaints Resp Reports no additional complaints GI Reports no additional complaints Reports no additional complaints Physical exam (Primary Care) Vital Signs: Last Vital Signs Pulse 52 06/11/23 12:18 BP 140/78 H 06/11/23 12:18 Pulse Ox 95 06/11/23 12:18 Oxygen Delivery Method Room Air 06/11/23 12:18 BMI result Body Mass Index 30.3 Tobacco/Smoking Status: Tobacco use Status Tobacco use date assessed 06/11/23 06/11/23 12:23 Patient Tobacco Use Status Current everyday Tobacco 06/11/23 12:23 Tobacco use type Cigarette 06/11/23 12:23 e-Cigarette/Vaping Use Never Used 06/11/23 12:23 Thrive Assessment: Date of Thrive Assessment Date Thrive assessed 10/21/22 06/11/23 12:23 Const General: no acute distress HENMT Face and sinus: Yes normal facial exam Eyes General: appearance normal, both eyes and all related structures Cardio Rhythm: regular rhythm Heart sounds: S1 normal heart sound present and S2 normal heart sound present GI Inspection: Yes normal to inspection Palpation (GI): Soft to palpation Percussion: Yes normal to percussion Auscultation: normal bowel sounds Assessment and Plan Assessment & Plan (1) Elevated PSA: Comment: PSA 4.93, started on FINASTERIDE, PATIENT DECLINED REFERRAL TO UROLOGY Code(s): R97.20 - Elevated prostate specific antigen [PSA] Plan: CONTINUE CURRENT MEDICATIONS (2) HTN (hypertension): Code(s): I10 - Essential (primary) hypertension Plan: Blood pressure is elevated and amlodipine will be increased to 10 mg a day and patient will be prescribed Lotrel instead of separate amlodipine and lisinopril to improved compliance. Follow-up in 2 months for blood pressure check (3) Hyperlipidemia: Comment: intolerant to statins, patient refuses to take medications for hyperlipidemia Code(s): E78.5 - Hyperlipidemia, unspecified Plan: Continue low-cholesterol diet (4) DM type 2 (diabetes mellitus, type 2): Comment: A1c is 6.4, 11/01, A1C 6.0 03/03, Farxiga caused polyuria Code(s): E11.9 - Type 2 diabetes mellitus without complications Plan: A1c is 6.2, continue ADA diet regular exercise and current medications Medications: New amlodipine-benazepril 10-40 mg 1 cap PO DAILY 90 caps 2RF Discontinued lisinopril Discontinued Reason: Doctor's Order 40 mg PO DAILY 90 tabs 3RF amlodipine Discontinued Reason: Doctor's Order 5 mg PO DAILY 90 tabs 3RF Coding Level of Care Code Est Pt Level 4 (85162) Diagnoses Elevated PSA R97.20 HTN (hypertension) I10 Hyperlipidemia E78.5 DM type 2 (diabetes mellitus, type 2) E11.9
== END 2023-06-11 13:03 | disposition home or self-care (01) ==
PROVIDERS: PCP Internal Medicine; Visit Provider Internal Medicine
DX: R97.20 Elevated prostate specific antigen [PSA] (principal); I10 Essential (primary) hypertension; E78.5 Hyperlipidemia, unspecified; E11.9 Type 2 diabetes mellitus without complications
CPT/HCPCS: 99214

== ENCOUNTER 2023-08-11 12:33 | Outpatient (AMB) | payer OTHER, SELFPAY ==
[2023-08-11 12:50] VITALS: BP 130/76; PULSE 60; O2SAT 94; BMI 30.7
--- NOTE | 2023-08-11 12:50 | MHC.PC.OV ---
Vital Signs 08/11/23 12:50 Height 5 ft 11 in Weight 220 lb BMI 30.7 BP 130/76 Blood Pressure Location Lt brachial Position Sitting Pulse 60 Pulse Source Pulse Oximeter Pulse Oximetry (%) 94 Oxygen Delivery Method Room Air Intake Visit Reasons: Follow up Allergies Penicillins Allergy (Verified 08/11/23 12:50) Rash Uvoqrlc-RIA-CxD Reductase Inhibitor Adverse Reaction (Intermediate, Verified 08/11/23 12:50) LEG PAIN dapagliflozin [From [facility]] Adverse Reaction (Verified 08/11/23 12:50) frequent urination and painful urination Medication List - Last Reconciled 08/11/23 by Beronica Kim MD amlodipine-benazepril 10-40 mg 1 cap PO DAILY atenolol 100 mg PO DAILY doxazosin 4 mg PO DAILY finasteride 5 mg PO DAILY gabapentin 300 mg PO BEDTIME gabapentin 600 mg PO BEDTIME insulin glargine (Basaglar KwikPen U-100 Insulin) 60 units (0.6 mL) subcut QPM metformin 1,000 mg PO BID miscellaneous medical supply 1 ea miscellaneous .qd pen needle, diabetic (Droplet Micron Pen Needle) Use to inject insulin with pen daily tamsulosin 0.8 mg (2 x 0.4 mg) PO BEDTIME trazodone 50 mg PO BEDTIME PRN varenicline 1 mg PO BID 12 weeks Tobacco use date assessed: 08/11/23 Fall risk assessment: No Falls in past year Last assessed Fall Risk: 08/11/23 Dental Screening Dental Screen Date: 08/11/23 Did you have a dental visit in the last 12 months?: No Did you have a dental problem in the last 6 months where you did not have access to dental care?: No Was dental information given to patient?: Patient declined HPI Follow up HPI Details Patient presents for the follow-up on hypertension type 2 diabetes. Patient complains of food umbilical hernia getting bigger but denies any pain. [facility] Medical History (Updated 08/11/23 @ 13:16 by Beroncia Kim MD) Nicotine dependence, cigarettes, uncomplicated Colonoscopy refused Neuropathy Sleep apnea BPH (benign prostatic hyperplasia) DM type 2 (diabetes mellitus, type 2) HTN (hypertension) Surgical History History of dental surgery Family History Father No problems noted. Mother Hypertension Diabetes Social History Household Members Other:: , retired, well balanced, Housing: House Patient Tobacco Use Status: Current everyday Tobacco user Tobacco use type: Cigarette Cigarettes Per Day: 10 Years Smoked: (current smoker - onset 12yo, 1-2ppd x 55yrs, now 1/2ppd - 70pyh) e-Cigarette/Vaping Use: Never Used service: Yes Current occupational status: retired Cognitive needs: No Hearing needs: No Vision needs: Yes Questionnaire PHQ-9 Over the last 2 weeks, how often have you been bothered by any of the following problems? 1. Little interest or pleasure in doing things: not at all 2. Feeling down, depressed, or hopeless: not at all 3. Trouble falling or staying asleep, or sleeping too much: several days 4. Feeling tired or having little energy: more than half the days 5. Poor appetite or overeating: not at all 6. Feeling bad about yourself - or that you are a failure or have let yourself or your family down: not at all 7. Trouble concentrating on things, such as reading the newspaper or watching television: not at all 8. Moving or speaking so slowly that other people could have noticed. Or the opposite - being so fidgety or restless that you have been moving around a lot more than usual: not at all 9. Thoughts that you would be better off or of hurting yourself in some way: not at all Total score: 3 Depression Screening Interpretation: Negative Depression Screening Done: Yes Source: Developed by Drs. Reji Gay, Melissa Bacon, Kiko De La Torre and colleagues, with an educational feliciano from [employer]. Thrive Questionnaire Date Thrive assessed: 08/11/23 I am a: Patient What is your living situation today?: I have a steady place to live Within the past 12 months, did the food you bought not last and you didn't have the money to get more?: Never true Within the past 12 months, did you worry whether your food would run out before you got money to buy more?: Never true Do you have trouble paying for medicines?: No Do you have trouble getting transportation to medical appointments?: No Do you have trouble paying your heating and electricity bill?: No Do you have trouble taking care of your child, family member or friend?: No Do you have trouble with day-to-day activities such as bathing, preparing meals, shopping, managing finances, etc.?: No Are you currently unemployed and looking for a job?: No Are you interested in more education?: No Please select the resources that you would like help with: None Currently or been in a relationship where the following occur: no concerns reported THRIVE Score: 0 DOMONIQUE-7 AMB Questionnaire DOMONIQUE-7 Date DOMONIQUE - 7 assessed: 11/11/22 Feeling nervous, anxious, or on edge: 0 = Not at all Not being able to stop or control worryin = Not at all Worrying too much about different things: 0 = Not at all Trouble relaxin = Not at all Being so restless that it is hard to sit still: 0 = Not at all Becoming easily annoyed or irritable: 0 = Not at all Feeling afraid as if something awful might happen: 0 = Not at all Total DOMONIQUE-7 score (0-4 normal; 5-9 mild; 10-14 moderate; 15-21 severe): 0 Source: Developed by Drs. Reji Gay, Melissa Bacon, Kiko De La Torre and colleagues, with an educational feliciano from [employer]. Review of Systems Const All systems reviewed & are unremarkable except as noted in HPI and below Reports no additional complaints Eyes Reports no additional complaints ENT Reports no additional complaints Card Reports no additional complaints Resp Reports no additional complaints GI Reports no additional complaints Physical exam (Primary Care) Vital Signs: Last Vital Signs Pulse 60 08/11/23 12:50 BP 130/76 08/11/23 12:50 Pulse Ox 94 08/11/23 12:50 Oxygen Delivery Method Room Air 08/11/23 12:50 BMI result Body Mass Index 30.7 Tobacco/Smoking Status: Tobacco use Status Tobacco use date assessed 08/11/23 08/11/23 12:51 Patient Tobacco Use Status Current everyday Tobacco 08/11/23 12:51 Tobacco use type Cigarette 08/11/23 12:51 e-Cigarette/Vaping Use Never Used 08/11/23 12:51 PHQ-9: PHQ-9 Score PHQ-9: Total score 3 08/11/23 13:01 Depression Screening Interpretation: Negative Thrive Assessment: Date of Thrive Assessment Date Thrive assessed 08/11/23 08/11/23 13:01 Currently or been in a relationship where the following occur: no concerns reported HENMT Head: Yes normal to inspection Neck Neck: Yes supple Resp Effort & Inspection: normal respiratory effort Auscultation: clear to auscultation bilaterally Cardio Rhythm: regular rhythm Heart sounds: S1 normal heart sound present and S2 normal heart sound present GI Other: Reducible nontender umbilical hernia Inspection: Yes normal to inspection Palpation (GI): Soft to palpation Percussion: Yes normal to percussion Assessment and Plan Assessment & Plan (1) Umbilical hernia: Code(s): K42.9 - Umbilical hernia without obstruction or gangrene Plan: Referred to general surgeon (2) HTN (hypertension): Code(s): I10 - Essential (primary) hypertension Plan: Continue current medications follow-up in 3 months with a fasting labs before (3) Hyperlipidemia: Comment: intolerant to statins, patient refuses to take medications for hyperlipidemia Code(s): E78.5 - Hyperlipidemia, unspecified (4) DM type 2 (diabetes mellitus, type 2): Comment: A1c is 6.4, 11/01, A1C 6.0 03/03, Farxiga caused polyuria Code(s): E11.9 - Type 2 diabetes mellitus without complications Plan: Continue current medications ADA diet regular physical activity Orders: Orders Hemoglobin A1c 3 Months E11.9 - Type 2 diabetes mellitus without complications, E78.5 - Hyperlipidemia, unspecified, I10 - Essential (primary) hypertension Microalbumin, Random (w Creat) 3 Months E11.9 - Type 2 diabetes mellitus without complications, E78.5 - Hyperlipidemia, unspecified, I10 - Essential (primary) hypertension Comprehensive [place]. Panel Fast 3 Months E11.9 - Type 2 diabetes mellitus without complications, E78.5 - Hyperlipidemia, unspecified, I10 - Essential (primary) hypertension Complete Blood Count Auto Diff 3 Months E11.9 - Type 2 diabetes mellitus without complications, E78.5 - Hyperlipidemia, unspecified, I10 - Essential (primary) hypertension Lipid Panel 3 Months E11.9 - Type 2 diabetes mellitus without complications, E78.5 - Hyperlipidemia, unspecified, I10 - Essential (primary) hypertension Referrals General Surgery Referral K42.9 - Umbilical hernia without obstruction or gangrene Coding Level of Care Code Est Pt Level 3 (17948) Diagnoses Umbilical hernia K42.9 HTN (hypertension) I10 Hyperlipidemia E78.5 DM type 2 (diabetes mellitus, type 2) E11.9
== END 2023-08-11 13:19 | disposition home or self-care (01) ==
PROVIDERS: PCP Internal Medicine; Visit Provider Internal Medicine
DX: K42.9 Umbilical hernia without obstruction or gangrene (principal); I10 Essential (primary) hypertension; E78.5 Hyperlipidemia, unspecified; E11.9 Type 2 diabetes mellitus without complications
CPT/HCPCS: 99213

== ENCOUNTER 2023-10-12 08:51 | Outpatient (REF) | payer OTHER, SELFPAY ==
[2023-10-12 12:46] LABS: MANUAL DIFF FLAG NO
[2023-10-12 12:52] LABS: Basophils Percent Auto 0.5 % (0-2); Eosinophils Absolute Auto 0.1 X10*3/uL (0.0-0.4); Eosinophils Percent Auto 1.4 % (0-4); Hematocrit 45.8 % (42.0-52.0); Imm Gran Abs Auto 0.04 X10*3/uL (0.00-0.03); Imm Gran Pct Auto 0.5 % (0.0-0.4); Lymphocytes Percent Auto 26.5 % (20-40); Mean Corpuscular HGB Conc 32.8 g/dl (31.0-36.0); Mean Corpuscular Hemoglobin 29.4 pg (27.0-33.0); Mean Corpuscular Volume 89.8 fL (80.0-98.0); Mean Platelet Volume 10.1 fL (9.4-12.4); Monocytes Absolute Auto 0.5 X10*3/uL (0.1-1.2); Monocytes Percent Auto 6.7 % (2-11); Neutrophils Percent Auto 64.4 % (45-73); Platelet Count 191 X10*3/uL (160-400); White Blood Count 7.7 X10*3/uL (4.8-10.8)
[2023-10-12 13:07] LABS: Estimated Average Glucose 160 mg/dL; Hemoglobin A1c % 7.2 % (<6.0)
[2023-10-12 13:19] LABS: Alanine Aminotransferase 13 U/L (0-40); Albumin Level 4.2 g/dL (3.5-5.0); Alkaline Phosphatase 70 U/L (39-117); Anion Gap 10 (12-20); Aspartate Amino Transferase 14 U/L (5-37); Bilirubin Total 0.6 mg/dL (0.0-1.0); Blood Urea Nitrogen 18 mg/dL (9-16); Carbon Dioxide 29 mmol/L (22-29); Chloride 109 mmol/L (96-108); Cholesterol 136 mg/dL (<200); Estimated Glomerular Filt Rate > 60; Glucose Fasting 131 mg/dL (60-99); HDL Cholesterol 32 mg/dL (>40); LDL Cholesterol Calculated 88 mg/dL (<100); Potassium 4.6 mmol/L (3.3-5.1); Sodium 143 mmol/L (135-145); Total Protein 6.9 g/dL (6.5-8.0); Triglycerides 81 mg/dL (<150)
[2023-10-12 13:59] LABS: Creatinine Urine 82.59 mg/dL; Microalbum/Creatinine Ratio Ur 107.7 ug/mg cr (<30)
== END 2023-10-12 08:52 | disposition home or self-care (01) ==
LOC: HO.HMGCLDS 08:51
PROVIDERS: PCP Internal Medicine; Visit Provider Internal Medicine
DX: I10 Essential (primary) hypertension (principal); E11.9 Type 2 diabetes mellitus without complications; E78.5 Hyperlipidemia, unspecified
CPT/HCPCS: 36415; 80053; 80061; 82043; 82570; 83036; 85025

== ENCOUNTER 2023-10-13 11:14 | Outpatient (AMB) | payer OTHER, SELFPAY ==
--- NOTE | 2023-10-13 11:16 | A.OFFPC_ITS ---
Vital Signs 10/13/23 11:17 Height 5 ft 11 in Weight 220 lb BMI 30.7 BP 126/80 Blood Pressure Location Lt brachial Position Sitting Pulse 53 Pulse Source Pulse Oximeter Pulse Oximetry (%) 95 Oxygen Delivery Method Room Air Intake Visit Reasons: 3M F/U DM - see comment Intake Note: Pt is here today for 3 months follow up visit. Allergies Penicillins Allergy (Verified 10/13/23 11:30) Rash Pczxjzh-EZH-SpY Reductase Inhibitor Adverse Reaction (Intermediate, Verified 10/13/23 11:30) LEG PAIN dapagliflozin [From [facility]] Adverse Reaction (Verified 10/13/23 11:30) frequent urination and painful urination Medication List - Last Reconciled 10/13/23 by Beronica Kim MD amlodipine-benazepril 10-40 mg 1 cap PO DAILY atenolol 100 mg PO DAILY doxazosin 4 mg PO DAILY finasteride 5 mg PO DAILY gabapentin 300 mg PO BEDTIME gabapentin 600 mg PO BEDTIME insulin glargine (Basaglar KwikPen U-100 Insulin) 60 units (0.6 mL) subcut QPM metformin 1,000 mg PO BID miscellaneous medical supply 1 ea miscellaneous .qd pen needle, diabetic (Droplet Micron Pen Needle) Use to inject insulin with pen daily tamsulosin 0.8 mg (2 x 0.4 mg) PO BEDTIME trazodone 50 mg PO BEDTIME PRN varenicline 1 mg PO BID Tobacco use date assessed: 08/11/23 Dental Screening Dental Screen Date: 08/11/23 HPI 3M F/U DM - see comment HPI Details Patient presents for the follow-up of hypertension type 2 diabetes BPH. [facility] Medical History Nicotine dependence, cigarettes, uncomplicated Colonoscopy refused Neuropathy Sleep apnea BPH (benign prostatic hyperplasia) DM type 2 (diabetes mellitus, type 2) HTN (hypertension) Surgical History History of dental surgery Family History Father No problems noted. Mother Hypertension Diabetes Social History Household Members Other:: , retired, well balanced, Housing: House Patient Tobacco Use Status: Current everyday Tobacco user Tobacco use type: Cigarette Cigarettes Per Day: 10 Years Smoked: (current smoker - onset 12yo, 1-2ppd x 57yrs, now 1/2ppd - 70pyh) e-Cigarette/Vaping Use: Never Used service: Yes Current occupational status: retired Cognitive needs: No Hearing needs: No Vision needs: Yes Questionnaire Thrive Questionnaire Date Thrive assessed: 08/11/23 DOMONIQUE-7 AMB Questionnaire DOMONIQUE-7 Date DOMONIQUE - 7 assessed: 11/11/22 Source: Developed by Drs. Reji Gay, Melissa Bacon, Kiko De La Torre and colleagues, with an educational feliciano from [employer]. Review of Systems Const All systems reviewed & are unremarkable except as noted in HPI and below Reports no additional complaints Eyes Reports no additional complaints ENT Reports no additional complaints Card Reports no additional complaints Resp Reports no additional complaints GI Reports no additional complaints Reports no additional complaints Physical exam (Primary Care) Vital Signs: Last Vital Signs Pulse 53 10/13/23 11:17 BP 126/80 10/13/23 11:17 Pulse Ox 95 10/13/23 11:17 Oxygen Delivery Method Room Air 10/13/23 11:17 BMI result Body Mass Index 30.7 Tobacco/Smoking Status: Tobacco use Status Tobacco use date assessed 08/11/23 10/13/23 11:17 Patient Tobacco Use Status Current everyday Tobacco 10/13/23 11:17 Tobacco use type Cigarette 10/13/23 11:17 e-Cigarette/Vaping Use Never Used 10/13/23 11:17 Thrive Assessment: Date of Thrive Assessment Date Thrive assessed 08/11/23 10/13/23 11:17 Const General: no acute distress HENMT Ears: hearing grossly normal bilaterally Neck Neck: Yes no lymphadenopathy and Yes supple Resp Effort & Inspection: normal respiratory effort Auscultation: clear to auscultation bilaterally Cardio Rhythm: regular rhythm Heart sounds: S1 normal heart sound present and S2 normal heart sound present GI Inspection: Yes normal to inspection Palpation (GI): Soft to palpation Assessment and Plan Assessment & Plan (1) HTN (hypertension): Code(s): I10 - Essential (primary) hypertension Plan: cont meds (2) Hyperlipidemia: Comment: intolerant to statins, patient refuses to take medications for hyperlipidemia Code(s): E78.5 - Hyperlipidemia, unspecified Plan: cont low cholesterol diet (3) DM type 2 (diabetes mellitus, type 2): Comment: A1c is 6.4, 11/01, A1C 6.0 03/03, Farxiga caused polyuria Code(s): E11.9 - Type 2 diabetes mellitus without complications Plan: A1C is 7.2, ADA diet increase exercise weight loss discussed with the patient he will continue same medications and will follow-up in 3 months (4) Lung nodule, multiple: Comment: CT scan 08/03, unchanged since 2015, annual Code(s): R91.8 - Other nonspecific abnormal finding of lung field Plan: Patient is overdue for chest CT scan was ordered for August 2023, will follow- up with lung cancer screening program Orders: Orders Hemoglobin A1c 3 Months E11.9 - Type 2 diabetes mellitus without complications, E78.5 - Hyperlipidemia, unspecified, I10 - Essential (primary) hypertension Complete Blood Count Man Dif 3 Months E11.9 - Type 2 diabetes mellitus without complications, E78.5 - Hyperlipidemia, unspecified, I10 - Essential (primary) hypertension Lipid Panel 3 Months E11.9 - Type 2 diabetes mellitus without complications, E78.5 - Hyperlipidemia, unspecified, I10 - Essential (primary) hypertension Comprehensive [place]. Panel Fast 3 Months E11.9 - Type 2 diabetes mellitus without complications, E78.5 - Hyperlipidemia, unspecified, I10 - Essential (primary) hypertension Microalbumin, Random (w Creat) 3 Months E11.9 - Type 2 diabetes mellitus without complications, E78.5 - Hyperlipidemia, unspecified, I10 - Essential (primary) hypertension Coding Level of Care Code Est Pt Level 4 (58365) Diagnoses HTN (hypertension) I10 Hyperlipidemia E78.5 DM type 2 (diabetes mellitus, type 2) E11.9 Lung nodule, multiple R91.8
[2023-10-13 11:17] VITALS: BP 126/80; PULSE 53; O2SAT 95; BMI 30.7
== END 2023-10-13 12:09 | disposition home or self-care (01) ==
PROVIDERS: PCP Internal Medicine; Visit Provider Internal Medicine
DX: I10 Essential (primary) hypertension (principal); E78.5 Hyperlipidemia, unspecified; E11.9 Type 2 diabetes mellitus without complications; R91.8 Other nonspecific abnormal finding of lung field
CPT/HCPCS: 99214

== ENCOUNTER 2023-11-16 08:57 | Outpatient (AMB) | payer OTHER, SELFPAY ==
[2023-11-16 09:17] VITALS: BP 136/82; PULSE 55; O2SAT 96; BMI 31.7
--- NOTE | 2023-11-16 09:17 | AM.OFFWIN_ITS ---
Intake Vital Signs 3 11/16/23 09:17 Height 5 ft 11 in Weight 227 lb 4 oz BMI 31.7 BP 136/82 Blood Pressure Location Lt brachial Position Sitting Pulse 55 Pulse Source Pulse Oximeter Pulse Oximetry (%) 96 Oxygen Delivery Method Room Air Intake Visit Reasons: EP poison Mary Anne Patient Tobacco Use Status: Current everyday Tobacco user Allergies Penicillins Allergy (Verified 11/16/23 09:19) Rash Gkefkxv-KUJ-LeH Reductase Inhibitor Adverse Reaction (Intermediate, Verified 11/16/23 09:19) LEG PAIN dapagliflozin [From [facility]] Adverse Reaction (Verified 11/16/23 09:19) frequent urination and painful urination Medication List - Last Reconciled 11/16/23 by Mukesh Soria MD amlodipine-benazepril 10-40 mg 1 cap PO DAILY atenolol 100 mg PO DAILY doxazosin 4 mg PO DAILY finasteride 5 mg PO DAILY gabapentin 300 mg PO BEDTIME gabapentin 600 mg PO BEDTIME insulin glargine (Basaglar KwikPen U-100 Insulin) 60 units (0.6 mL) subcut QPM metformin 1,000 mg PO BID miscellaneous medical supply 1 ea miscellaneous .qd pen needle, diabetic (Droplet Micron Pen Needle) Use to inject insulin with pen daily tamsulosin 0.8 mg (2 x 0.4 mg) PO BEDTIME trazodone 50 mg PO BEDTIME PRN varenicline 1 mg PO BID Do you need a note to return to daycare/school/sports/work: No HPI EP poison Mary Anne 2 HPI0 Details Patient is 68-year-old gentleman who was working in [employer] this week He has developed very pruritic rash on both his forearms And right abdomen right leg Patient says that he has never had such a rash before Patient is diabetic sugars are controlled, last A1c was 7.2 few weeks ago 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 Mother Hypertension Diabetes Social History Household Members Other:: , retired, well balanced, Housing: House Patient Tobacco Use Status: Current everyday Tobacco user Tobacco use type: Cigarette Cigarettes Per Day: 10 Years Smoked: (current smoker - onset 12yo, 1-2ppd x 57yrs, now 1/2ppd - 70pyh) e-Cigarette/Vaping Use: Never Used service: Yes Current occupational status: retired Cognitive needs: No Hearing needs: No Vision needs: Yes Review of Systems Const All systems reviewed & are unremarkable except as noted in HPI and below Physical Exam Vital Signs: Last Vital Signs Pulse 55 11/16/23 09:17 BP 136/82 11/16/23 09:17 Pulse Ox 96 11/16/23 09:17 Oxygen Delivery Method Room Air 11/16/23 09:17 BMI result Body Mass Index 31.7 Const General: no acute distress Orientation/consciousness: patient oriented x3 Eyes General: appearance normal, both eyes and all related structures Resp Effort & Inspection: normal respiratory effort and able to speak in complete sentences Auscultation: clear to auscultation bilaterally Cardio Other: S1 S2 Skin Full body images: 2 1. Maculopapular rash, some are linear 2. 3. 4. Neuro General: patient oriented x3 Psych Mental Status: mental status grossly normal Assessment & Plan Assessment & Plan (1) Contact dermatitis: Code(s): L25.9 - Unspecified contact dermatitis, unspecified cause Qualifiers: Contact dermatitis type: irritant Contact dermatitis trigger: non-food plants Qualified Code(s): L24.7 - Irritant contact dermatitis due to plants, except food (2) Insulin dependent type 2 diabetes mellitus: Code(s): E11.9 - Type 2 diabetes mellitus without complications; Z79.4 - senior living (current) use of insulin Plan Patient is 68-year-old gentleman who was working in yard this week He has developed very pruritic rash on both his forearms And right abdomen right leg Patient says that he has never had such a rash before Patient is diabetic sugars are controlled, last A1c was 7.2 few weeks ago 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 he tells me I am treating him with prednisone 50 mg once a day for 5 days Hydroxyzine 25 mg to be taken only at night sent Calamine lotion over the rash during the day Patient was advice to increase his insulin by 2 or 4 units if his sugar became high due to prednisone Medications: New 2 hydroxyzine HCl 25 mg PO BEDTIME 10 tabs 0RF Itching prednisone 50 mg PO DAILY 5 tabs 0RF 5 days Coding Level of Care Code Est Pt Level 3 (36989) Diagnoses Irritant contact dermatitis due to plants, except food L24.7 Contact dermatitis type: irritant Contact dermatitis trigger: non-food plants Insulin dependent type 2 diabetes mellitus E11.9; Z79.4
== END 2023-11-16 09:57 | disposition home or self-care (01) ==
PROVIDERS: PCP Internal Medicine; Visit Provider Internal Medicine
DX: L24.7 Irritant contact dermatitis due to plants, except food (principal); E11.9 Type 2 diabetes mellitus without complications; Z79.4 Long term (current) use of insulin
CPT/HCPCS: 99213

== ENCOUNTER 2023-11-30 10:13 | Outpatient (AMB) | payer OTHER, SELFPAY ==
--- NOTE | 2023-11-30 10:16 | MHC.OFFVIS ---
Vital Signs 11/30/23 10:22 Height 5 ft 11 in Weight 224 lb BMI 31.2 BP 170/79 H Blood Pressure Location Rt brachial Position Sitting Pulse 59 Intake Visit Reasons: Umbilical hernia Intake Note: Patient referred by PCP Dr. Kim for umbilical hernia. Present for several yrs. Patient c/o: pain, enlarging. 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: No Accompanied by: Self / Same As Patient Allergies Penicillins Allergy (Verified 11/30/23 10:28) Rash Ojjyfnm-YFT-EzW Reductase Inhibitor Adverse Reaction (Intermediate, Verified 11/30/23 10:28) LEG PAIN dapagliflozin [From [facility]] Adverse Reaction (Verified 11/30/23 10:28) frequent urination and painful urination Medication List - Last Reconciled 11/30/23 by Jens Vargas MD amlodipine-benazepril 10-40 mg 1 cap PO DAILY atenolol 100 mg PO DAILY doxazosin 4 mg PO DAILY finasteride 5 mg PO DAILY gabapentin 300 mg PO BEDTIME gabapentin 600 mg PO BEDTIME hydroxyzine HCl 25 mg PO BEDTIME insulin glargine (Basaglar KwikPen U-100 Insulin) 60 units (0.6 mL) subcut QPM metformin 1,000 mg PO BID miscellaneous medical supply 1 ea miscellaneous .qd pen needle, diabetic (Droplet Micron Pen Needle) Use to inject insulin with pen daily tamsulosin 0.8 mg (2 x 0.4 mg) PO BEDTIME trazodone 50 mg PO BEDTIME PRN varenicline 1 mg PO BID HPI Comments Details: Patient presents with a few issues and complaints. 1. Symptomatic umbilical hernia. He has had this several years time. His increasing in size, become more symptomatic. Wished to have removed. 2. Patient has an exophytic 2 x 1 cm growth involving his right anterior chest. He has had this many time. 3. Patient has has longstanding history of smoking. Over 50 years. He is currently down to 1/2 pack per day. He was in a lung surveillance program at another facility but has not had a follow-up CT scan in over a year's time. He has no respiratory issues or complaints but on review of prior studies, patient has a suspicious left lung mass. Chart was reviewed and patient evaluated [facility] Medical History Nicotine dependence, cigarettes, uncomplicated Colonoscopy refused Neuropathy Sleep apnea BPH (benign prostatic hyperplasia) DM type 2 (diabetes mellitus, type 2) HTN (hypertension) Surgical History History of dental surgery Family History Father No problems noted. Mother Hypertension Diabetes Social History Household Members Other:: , retired, well balanced, Housing: House Patient Tobacco Use Status: Current everyday Tobacco user Tobacco use type: Cigarette Cigarettes Per Day: 10 Years Smoked: (current smoker - onset 12yo, 1-2ppd x 55yrs, now 1/2ppd - 70pyh) e-Cigarette/Vaping Use: Never Used service: Yes Current occupational status: retired Cognitive needs: No Hearing needs: No Vision needs: Yes Physical Exam Vital Signs: Last Vital Signs Pulse 59 11/30/23 10:22 BP 170/79 H 11/30/23 10:22 BMI result Body Mass Index 31.2 HEENT Other: No obvious cervical periclavicular axillary adenopathy. Patient has a proximally 2 by 1 cm exophytic growth involving upper anterior chest. Chest Other: Chest breath sounds bilaterally, consistent with COPD, HS 1 in 2 GI Other: Abdomen corpulent, soft, benign. Patient was examined both supine and standing with Valsalva. Bilateral groin exam negative. Genitalia within normal limits. Patient has a proximally 3 cm incarcerated umbilical hernia. Office Procedures Excision Details: Risks, benefits, alternatives of excision of right anterior chest wall growth were reviewed with the patient and included but not limited to bleeding, infection, recurrence, numbness, pain, scarring the patient was to proceed. After appropriate positioning, patient underwent 1% lidocaine and Betadine prep and uneventful tangential excision of the lesion. Specimen sent to pathology. Wound base was cauterized using silver nitrate followed by bacitracin and sterile dressing. Patient tolerated the do well 10835-[id number] scalp/neck/hands/feet/genitalia 1.1cm-2cm Procedure code (CPT) selection complete Office Meds lidocaine 1 %-epinephrine 1:100,000 injection solution Performing Provider: Jens Vargas MD Performing Location: [facility] [place] General Surgeons Administered by: Jens Vargas MD on 11/30/23 10:34 Dose Route Admin Location Dispensed Lot Number Expiration Date NDC Senior Caregiver 10 mL Infiltration 10 mL Assessment & Plan Assessment & Plan (1) Umbilical hernia: Code(s): K42.9 - Umbilical hernia without obstruction or gangrene Category: Medical (2) Skin lesion of chest wall: Code(s): L98.9 - Disorder of the skin and subcutaneous tissue, unspecified Category: Medical (3) Lesion of left lung: Code(s): R91.1 - Solitary pulmonary nodule Category: Medical Plan 1. patient underwent uneventful excision of right anterior chest wall mass. He has been given local instructions including bacitracin each day with a Band-Aid. 2. Risks, benefits, and alternatives of open umbilical hernia repair with mesh of incarcerated hernia were reviewed with the patient included but not limited to bleeding, infection, recurrence, numbness, pain, scarring, bowel injury and the patient wishes to proceed. All questions answered. 3. Patient will be scheduled for surveillance follow-up CT scan of the chest regarding his left lung lesion. Orders: Orders AMB Excision Today K42.9 - Umbilical hernia without obstruction or gangrene, L98.9 - Disorder of the skin and subcutaneous tissue, unspecified, R91.1 - Solitary pulmonary nodule Medications: New lidocaine-epinephrine 1 %-1:100,000 10 mL Infiltration ONCE 30 mL 0RF K42.9 - Umbilical hernia without obstruction or gangrene, L98.9 - Disorder of the skin and subcutaneous tissue, unspecified, R91.1 - Solitary pulmonary nodule Coding Level of Care Code New Pt Level 5 (47084) Diagnoses Umbilical hernia K42.9 Skin lesion of chest wall L98.9 Lesion of left lung R91.1 CPT Codes Scalp/Neck/Hands/Feet/Genetalia - CPT: 20693-Ibkgqijt scalp/neck/hands/feet/genitalia 1.1cm-2cm ([id number])
[2023-11-30 10:22] VITALS: BP 170/79; PULSE 59; BMI 31.2
== END 2023-11-30 10:46 | disposition home or self-care (01) ==
PROVIDERS: PCP Internal Medicine; Referring Provider Internal Medicine; Visit Provider Surgery
DX: K42.9 Umbilical hernia without obstruction or gangrene (principal); R91.1 Solitary pulmonary nodule; L98.9 Disorder of the skin and subcutaneous tissue, unspecified
CPT/HCPCS: 11402; 99204

== ENCOUNTER 2023-11-30 10:13 | Outpatient (REF) | payer OTHER, SELFPAY | END 2023-11-30 10:14 | disposition home or self-care (01) | LOC: HO.LNP 10:13 | PROVIDERS: PCP Internal Medicine; Referring Provider Internal Medicine; Visit Provider Surgery | DX: K42.9 Umbilical hernia without obstruction or gangrene (principal); R91.1 Solitary pulmonary nodule; L82.1 Other seborrheic keratosis | CPT/HCPCS: 11402; 88304; 88305; 99202 ==

== ENCOUNTER → 2023-12-24 07:38 | Outpatient (BNV) | payer OTHER, SELFPAY | PROVIDERS: PCP Internal Medicine; Visit Provider Internal Medicine | DX: R00.1 Bradycardia, unspecified (principal) | CPT/HCPCS: 93010 ==

== ENCOUNTER 2023-12-24 07:55 | Day surgery (SDC) | payer OTHER, SELFPAY ==
[2023-12-22 10:08] VITALS: BMI 32.1
--- NOTE | 2023-12-22 12:50 | P.CONAN_ITS ---
Documented by User: Char Mckinley NP 12/22/23 12:51 HPI - Anesthesia Eval Consult details Narrative: 68yo M for OPEN Repair Incarcerated Hernia Umbilical with mesh PMFSH Active Problems Active Problems: All Active Problems Lesion of left lung (Acute) Skin lesion of chest wall (Acute) Insulin dependent type 2 diabetes mellitus (Acute) Contact dermatitis (Acute) Umbilical hernia (Acute) UTI (urinary tract infection) (Acute) Microalbuminuria (Acute) Lung nodule, multiple (Acute) Elevated PSA (Acute) Coronary artery calcification (Acute) COX (dyspnea on exertion) (Acute) Hyperlipidemia (Acute) Nicotine dependence, cigarettes, uncomplicated (Acute) HTN (hypertension) (Acute) DM type 2 (diabetes mellitus, type 2) (Acute) Neuropathy (Acute) Sleep apnea (Acute) BPH (benign prostatic hyperplasia) (Acute) Colonoscopy refused (Acute) Past Medical History Medical History Murmur Nicotine dependence, cigarettes, uncomplicated Colonoscopy refused Neuropathy Sleep apnea BPH (benign prostatic hyperplasia) DM type 2 (diabetes mellitus, type 2) HTN (hypertension) Family History Family History Father No problems noted. Mother Hypertension Diabetes Surgical History Surgical History History of arthroscopic knee surgery History of dental surgery Social History Social History Household Members Other:: , retired, well balanced, Housing: House Are you a primary patient centered care specialist to a significant other at home: No Do you presently have visiting nurse or other home services: No Patient Tobacco Use Status: Current everyday Tobacco user Tobacco use type: Cigarette Cigarettes Per Day: 10 Years Smoked: (current smoker - onset 12yo, 1-2ppd x 55yrs, now 1/2ppd - 70pyh) e-Cigarette/Vaping Use: Never Used service: Yes Current occupational status: retired Cognitive needs: No Hearing needs: No Vision needs: Yes Meds Allergies Allergy/AdvReac Type Severity Reaction Status Date / Time Penicillins Allergy Rash Verified 11/30/23 10:28 Jvpxbuc-HXW-ZtS Reductase AdvReac Intermediate LEG PAIN Verified 11/30/23 10:28 Inhibitor dapagliflozin [From [facility]] AdvReac frequent Verified 11/30/23 10:28 urination and painful urination Home Medications ?Medication ?Instructions ?Recorded ?Confirmed ?Last Taken ?Type amlodipine 10 mg-benazepril 40 mg 1 cap PO BEDTIME 12/24/23 12/23/23 History capsule Exam Height,Weight and Vital Signs: Height 5 ft 11 in Weight 104.326 kg Pertinent Lab Results Pertinent Lab Results: Laboratory Tests 10/12/23 08:59 WBC 7.7 Hgb 15.0 Hct 45.8 Plt Count 191 Sodium 143 Potassium 4.6 Chloride 109 H Carbon Dioxide 29 BUN 18 H Creatinine 0.87 Narrative Narrative: ECHO 2022 Conclusions: - 1. Normal LV ejection fraction with mild LVH with normal filling pattern 2. Cardiac valvular Dopplers within normal limits 3. Mildly dilated ascending aorta at 3.9 cm 4. Normal RV systolic pressure 5. No gross pericardial effusion Assessment and Plan Assessment Anesthesia Assessment: Chart Reviewed Documented by User: Lani Lombardo MD 12/24/23 10:45 [facility] Active Problems Active Problems: iAll Active Problems Lesion of left lung (Acute) Skin lesion of chest wall (Acute) Insulin dependent type 2 diabetes mellitus (Acute) Contact dermatitis (Acute) Umbilical hernia (Acute) UTI (urinary tract infection) (Acute) Microalbuminuria (Acute) Lung nodule, multiple (Acute) Elevated PSA (Acute) Coronary artery calcification (Acute) COX (dyspnea on exertion) (Acute) Hyperlipidemia (Acute) Nicotine dependence, cigarettes, uncomplicated (Acute) HTN (hypertension) (Acute) DM type 2 (diabetes mellitus, type 2) (Acute) Neuropathy (Acute) Sleep apnea (Acute) BPH (benign prostatic hyperplasia) (Acute) Colonoscopy refused (Acute) Past Medical History Medical History Murmur Nicotine dependence, cigarettes, uncomplicated Colonoscopy refused Neuropathy Sleep apnea BPH (benign prostatic hyperplasia) DM type 2 (diabetes mellitus, type 2) HTN (hypertension) Family History Family History Father No problems noted. Mother Hypertension Diabetes Family history of problems with anesthesia: No Surgical History Surgical History History of arthroscopic knee surgery History of dental surgery History of Problems with Anesthesia: No Social History Social History Household Members Other:: , retired, well balanced, Housing: House Are you a primary patient centered care specialist to a significant other at home: No Do you presently have visiting nurse or other home services: No Patient Tobacco Use Status: Current everyday Tobacco user Tobacco use type: Cigarette Cigarettes Per Day: 10 Years Smoked: (current smoker - onset 12yo, 1-2ppd x 57yrs, now 1/2ppd - 70pyh) e-Cigarette/Vaping Use: Never Used service: Yes Current occupational status: retired Cognitive needs: No Hearing needs: No Vision needs: Yes Meds Allergies Allergy/AdvReac Type Severity Reaction Status Date / Time Penicillins Allergy Rash Verified 11/30/23 10:28 Pvupzkr-CHY-KvX Reductase AdvReac Intermediate LEG PAIN Verified 11/30/23 10:28 Inhibitor dapagliflozin [From [facility]] AdvReac frequent Verified 11/30/23 10:28 urination and painful urination Home Medications ?Medication ?Instructions ?Recorded ?Confirmed ?Last Taken ?Type amlodipine 10 mg-benazepril 40 mg 1 cap PO BEDTIME 12/24/23 12/23/23 History capsule Exam Height,Weight and Vital Signs: Height 5 ft 11 in Weight 104.326 kg Vital Signs Temp Pulse Resp BP Pulse Ox O2 Del Method 97.5 F 52 18 134/79 95 Room Air 12/24/23 08:24 12/24/23 08:24 12/24/23 08:24 12/24/23 08:24 12/24/23 08:24 12/24/23 08:24 Pertinent Lab Results Pertinent Lab Results: Laboratory Tests 10/12/23 08:59 WBC 7.7 Hgb 15.0 Hct 45.8 Plt Count 191 Sodium 143 Potassium 4.6 Chloride 109 H Carbon Dioxide 29 BUN 18 H Creatinine 0.87 Lab Results 06/14/24 Range/Units 08:09 POC Glucose 143 H (60-115) mg/dL Airway Mallampati Class: II TM Dist: >3cm Neck ROM: Full Denture: Upper Loose/Missing/Broken Teeth: Yes (Only few teeth bottom. Denies broken or loose teeth) Heart: RRR Lungs: CTAB Assessment and Plan Assessment Anesthesia Assessment: Anesthesia Plan Discussed and Chart Reviewed Final Anesthetic Review Family History of Problems with Anesthesia: No History of Problems with Anesthesia: No NPO: Yes ASA Class: III Final Preanesthetic Review: No Changes in Pt Med Stat, Meds/Allgs Chart Reviewed, Consent Obtained/Reviewed and Anes Risks/Benef Reviewed Patient Risk: Intermediate Procedure Risk: Low Assessment/Block/Sedation in SS: Assess/Block/Sedation-SS Anesthetic Plan Anesthetic Plan: GA Disposition: Standard PACU
--- NOTE | 2023-12-23 10:10 | MHC.SHP ---
Pre-Procedural Eval Section A - 24 Hr Update-Section A only Date of Service: 12/24/23 The patient is an INPATIENT: No Changes since office visit: No Cold of Flu in the past 2 weeks, No New Medical Problems, No Changes in Medication and No Patient answered all questions Section B - Complete if H&P > 30 days Chief Complaint: Umbilical hernia without obstruction or gangrene Allergies: Allergies Allergy/AdvReac Type Severity Reaction Status Date / Time Penicillins Allergy Rash Verified 11/30/23 10:28 Mktpyxn-HCM-CuV Reductase AdvReac Intermediate LEG PAIN Verified 11/30/23 10:28 Inhibitor [facility]apagliflo[facility] [[facility]] AdvReac frequent Verified 11/30/23 10:28 urination and painful urination Plan I have reviewed the history and physical and performed a pertinent physical examination on my patient. No changes have occurred unless specified. Time Spent With Patient Time: Total time managing care of this patient today ____ minutes.
[2023-12-24] VITALS (12 sets, daily range): BP systolic 118–158; BP diastolic 61–90; PULSE 49–73; RESP 15–18; TEMP 36.2–36.4; O2SAT 93–97
--- NOTE | 2023-12-24 07:38 | ECG_ITS ---
Test Reason : pre op Blood Pressure : / mmHG Vent. Rate : 054 BPM Atrial Rate : 054 BPM P-R Int : 170 ms QRS Dur : 114 ms QT Int : 408 ms P-R-T Axes : 021 029 041 degrees QTc Int : 386 ms Sinus bradycardia Otherwise normal ECG No previous ECGs available Referred By: Char Mckinley Electronically Signed By:JOSSY NORMAN
[2023-12-24 08:13] LABS: Glucose, Whole Blood 143 mg/dL (60-115)
[2023-12-24] MEDS: Lactated Ringers 1,000 ML 100 ML IVCONT (08:37)
--- NOTE | 2023-12-24 10:27 | P.OP_ITS ---
Operative Note Operative Note Date of Service: 12/24/23 Narrative: Preoperative diagnosis: [] Incarcerated umbilical hernia Postop diagnosis: [] The same Procedure [open umbilical herniorrhaphy with Bard mesh Surgeon: [] Sam English Instructor: [] Marimar Type of Anesthesia: [] General Indication for surgery: [] Ap proximally incarcerated 4 cm umbilical hernia with omental contents Findings: [] Patient brought to the operating room, placed on operative table supine position, after an adequate level of general anesthesia was induced, the patient's abdomen was prepped and draped in usual sterile fashion. Using a supraumbilical curvilinear incision, this carried down through skin, subcutaneous tissue, were large hernia sac was identified and circumferentially dissected down to the fascia. Sac was opened where incarcerated omental contents were amputated using a combination of clamped, cut, and tied with 2-0 Vicryl ties. Remaining Omental stump was reduced. Hernia sac was amputated using Bovie. Fascia was circumferentially cleared and a Bard mesh was placed in this defect and the superficial layer of the mesh circumferentially sutured to the surrounding fascia using interrupted 0 Ethibond suture. At completion of the procedure, mesh was in good position with no tension or gaps. Wound was irrigated, and secured hemostasis. It was closed in the following manner; posterior aspect of the umbilicus was pexy to the wound floor using interrupted 3-0 Vicryl sutures. Skin was closed using interrupted inverted dermal 3-0 Vicryl sutures followed by Steri-Strips and sterile dressings. Wounds were infiltrated 0.5% Marcaine at completion. Sponge, needle, and instrument counts were reported correct. Patient tolerated the procedure well and emerged from anesthesia stable condition. EBL minimal
[2023-12-24] MEDS: fentaNYL citrate/PF 100 MCG/2 ML VIAL 25 MCG IVPUSH ×3 (11:01→11:11)
[2023-12-24] MEDS: Acetaminophen 325 MG TABLET 975 MG PO (11:19)
== END 2023-12-24 12:40 | disposition home or self-care (01) ==
PROVIDERS: PCP Internal Medicine; Visit Provider Surgery
PROC: (CPT 49594; principal; 2023-12-24 09:50)
DX: K42.0 Umbilical hernia with obstruction, without gangrene (principal); I10 Essential (primary) hypertension; E11.9 Type 2 diabetes mellitus without complications; Z79.4 Long term (current) use of insulin; Z79.899 Other long term (current) drug therapy; Z88.0 Allergy status to penicillin
CPT/HCPCS: 49594; 82947; 88302; 88304; 93005; C1781; J0736; J1100; J1596; J2250; J2405; J2704; J2795; J3010

== ENCOUNTER → 2023-12-24 07:55 | Outpatient (BNV) | payer OTHER, SELFPAY | PROVIDERS: PCP Internal Medicine; Visit Provider Surgery | DX: K42.9 Umbilical hernia without obstruction or gangrene (principal) | CPT/HCPCS: 49594 ==

== ENCOUNTER 2024-01-03 14:57 | Outpatient (AMB) | payer OTHER, SELFPAY ==
--- NOTE | 2024-01-03 15:01 | MHC.OFFVIS ---
Intake Visit Reasons: S/P umbilical hernia w/mesh Intake Note: Patient here s/p umbilical hernia w/mesh. Reports incisions healing well. Patient c/o: denies oozing, pain, itch. Steri strips fell off yesterday. No longer taking rx pain meds. SX: 12-24-2023. Marketing Researcher Required: No Accompanied by: Self / Same As Patient Allergies Penicillins Allergy (Verified 01/03/24 15:02) Rash Armjdwk-NGV-IrW Reductase Inhibitor Adverse Reaction (Intermediate, Verified 01/03/24 15:02) LEG PAIN dapagliflozin [From [facility]] Adverse Reaction (Verified 01/03/24 15:02) frequent urination and painful urination HPI Comments Details: Patient presents for follow-up. He has minimal incisional discomfort. He has tolerating a diet. He is having regular bowel habits. He is increasing his activity level. [facility] Medical History (Updated 12/30/23 @ 14:56 by FELICITA Madsen) Umbilical hernia, incarcerated (12/24/23) Murmur Nicotine dependence, cigarettes, uncomplicated Colonoscopy refused Neuropathy Sleep apnea BPH (benign prostatic hyperplasia) DM type 2 (diabetes mellitus, type 2) HTN (hypertension) Surgical History (Updated 01/03/24 @ 15:06 by Jens Vargas MD) History of arthroscopic knee surgery History of dental surgery Family History Father No problems noted. Mother Hypertension Diabetes Social History Household Members Other:: , retired, well balanced, Housing: House Are you a primary field care coordinator to a significant other at home: No Do you presently have visiting nurse or other home services: No Patient Tobacco Use Status: Current everyday Tobacco user Tobacco use type: Cigarette Cigarettes Per Day: 10 Years Smoked: (current smoker - onset 12yo, 1-2ppd x 57yrs, now 1/2ppd - 70pyh) e-Cigarette/Vaping Use: Never Used service: Yes Current occupational status: retired Cognitive needs: No Hearing needs: No Vision needs: Yes Physical Exam GI Other: Abdomen is soft. Incision clean dry and intact. Some superficial tape burn but no evidence of any infection or abscess. Assessment & Plan Assessment & Plan (1) Status post repair of ventral hernia: Code(s): Z98.890 - Other specified postprocedural states; Z87.19 - Personal history of other diseases of the digestive system Category: Medical Plan Patient has been given local instructions including avoiding strenuous activities next 4 to 6 weeks time and will otherwise follow-up p.r.n.. All questions answered. Coding Level of Care Code Global (81188) Diagnoses Status post repair of ventral hernia Z98.890; Z87.19
== END 2024-01-03 15:05 | disposition home or self-care (01) ==
PROVIDERS: PCP Internal Medicine; Visit Provider Surgery
DX: Z98.890 Other specified postprocedural states (principal); Z87.19 Personal history of other diseases of the digestive system
CPT/HCPCS: 99024

== ENCOUNTER → 2024-01-03 14:57 | Outpatient (BNVA) | payer OTHER, SELFPAY | PROVIDERS: PCP Internal Medicine; Visit Provider Surgery | DX: Z09 Encounter for follow-up examination after completed treatment for conditions other than malignant neoplasm (principal); Z87.19 Personal history of other diseases of the digestive system | CPT/HCPCS: 99212 ==

== ENCOUNTER 2024-03-03 09:05 | Outpatient (REF) | payer OTHER, SELFPAY ==
[2024-03-03 10:16] LABS: Baso%MD 0.3 %; Eos%MD 1.9 %; Hematocrit 45.3 % (42.0-52.0); Hemoglobin 14.8 g/dl (14.0-18.0); IG%MD 0.4 %; Lymph%MD 22.3 %; Mean Corpuscular HGB Conc 32.7 g/dl (31.0-36.0); Mean Corpuscular Hemoglobin 28.7 pg (27.0-33.0); Mean Corpuscular Volume 87.8 fL (80.0-98.0); Mean Platelet Volume 9.9 fL (9.4-12.4); Mono%MD 6.6 %; Neut%MD 68.5 %; Platelet Count 186 X10*3/uL (160-400); Red Blood Count 5.16 X10*6/uL (4.60-5.80); Red Cell Distribution Width 13.3 % (11.0-16.0); White Blood Count 9.1 X10*3/uL (4.8-10.8)
[2024-03-03 10:30] LABS: Estimated Average Glucose 143 mg/dL; Hemoglobin A1c % 6.6 % (<6.0)
[2024-03-03 11:01] LABS: Alanine Aminotransferase 10 U/L (0-40); Albumin Level 4.2 g/dL (3.5-5.0); Alkaline Phosphatase 80 U/L (39-117); Anion Gap 10 (12-20); Aspartate Amino Transferase 11 U/L (5-37); Bilirubin Total 0.4 mg/dL (0.0-1.0); Blood Urea Nitrogen 14 mg/dL (9-16); Calcium 8.9 mg/dL (8.4-10.2); Carbon Dioxide 29 mmol/L (22-29); Chloride 107 mmol/L (96-108); Cholesterol 153 mg/dL (<200); Estimated Glomerular Filt Rate > 60; Glucose Fasting 110 mg/dL (60-99); HDL Cholesterol 33 mg/dL (>40); LDL Cholesterol Calculated 106 mg/dL (<100); Potassium 3.9 mmol/L (3.3-5.1); Sodium 142 mmol/L (135-145); Total Protein 6.8 g/dL (6.5-8.0); Triglycerides 74 mg/dL (<150)
[2024-03-03 11:04] LABS: Creatinine Urine 91.18 mg/dL; Microalbum/Creatinine Ratio Ur 169.9 ug/mg cr (<30)
[2024-03-03 11:09] LABS: Atypical Lymph Absolute Manual 0.1 x10*3/uL; Atypical Lymphs Percent Manual 1 % (0-6); Lymphocytes Absolute Manual 2.1 X10*3/uL (1.2-4.9); Lymphocytes Percent Manual 23 % (20-40); Monocytes Absolute Manual 0.5 X10*3/uL (0.1-1.2); Monocytes Percent Manual 6 % (2-11); Neutrophils Percent Manual 70 % (45-73)
[2024-03-03 11:11] LABS: Platelet Estimate NORMAL (NORMAL); Platelet Morphology Comment NORMAL; RBC Morphology NORMAL
[2024-03-03 11:35] LABS: Band Neutrophils Percent 0 % (3-5); Neutrophils Absolute Manual 6.4 X10*3/uL (2.0-8.3)
== END 2024-03-03 09:06 | disposition home or self-care (01) ==
LOC: HO.HMGCLDS 09:05
PROVIDERS: PCP Internal Medicine; Visit Provider Internal Medicine
DX: I10 Essential (primary) hypertension (principal); E78.5 Hyperlipidemia, unspecified; E11.9 Type 2 diabetes mellitus without complications
CPT/HCPCS: 36415; 80053; 80061; 82043; 82570; 83036; 85007; 85027

== ENCOUNTER 2024-03-08 10:34 | Outpatient (AMB) | payer OTHER, SELFPAY ==
[2024-03-08 10:38] VITALS: BP 118/74; PULSE 57; O2SAT 95; BMI 30.7
--- NOTE | 2024-03-08 10:38 | MHC.PC.OV ---
Vital Signs 03/08/24 10:38 Height 5 ft 11 in Weight 220 lb BMI 30.7 BP 118/74 Blood Pressure Location Lt brachial Position Sitting Pulse 57 Pulse Source Pulse Oximeter Pulse Oximetry (%) 95 Oxygen Delivery Method Room Air Intake Visit Reasons: AnnualPE Intake Note: Pt is here today for PE. Allergies Penicillins Allergy (Verified 03/08/24 10:49) Rash Tuuiacg-STW-FgS Reductase Inhibitor Adverse Reaction (Intermediate, Verified 03/08/24 10:49) LEG PAIN dapagliflozin [From [facility]] Adverse Reaction (Verified 03/08/24 10:49) frequent urination and painful urination Medication List - Last Reconciled 03/08/24 by Beronica Kim MD amlodipine-benazepril 10-40 mg 1 cap PO BEDTIME atenolol 100 mg PO DAILY Dexcom G6 Transmitter (blood-glucose transmitter) As directed NS doxazosin 4 mg PO DAILY empagliflozin (Jardiance) 10 mg PO DAILY finasteride 5 mg PO DAILY gabapentin 300 mg PO BEDTIME gabapentin 600 mg PO BEDTIME insulin glargine (Basaglar KwikPen U-100 Insulin) 60 units (0.6 mL) subcut QPM metformin 1,000 mg PO BID miscellaneous medical supply 1 ea miscellaneous .qd pen needle, diabetic (Droplet Micron Pen Needle) Use to inject insulin with pen daily tamsulosin 0.8 mg (2 x 0.4 mg) PO BEDTIME trazodone 50 mg PO BEDTIME PRN varenicline 1 mg PO BID Tobacco use date assessed: 03/08/24 Fall risk assessment: No Falls in past year Last assessed Fall Risk: 03/08/24 Dental Screening Dental Screen Date: 08/11/23 HPI HPI Comments History of Present Illness Details Patient presents for physical [facility] Medical History (Updated 03/08/24 @ 11:42 by Beronica Kim MD) Umbilical hernia, incarcerated (12/24/23) Murmur Nicotine dependence, cigarettes, uncomplicated Colonoscopy refused Neuropathy Sleep apnea BPH (benign prostatic hyperplasia) DM type 2 (diabetes mellitus, type 2) HTN (hypertension) Surgical History (Updated 01/03/24 @ 15:06 by Jens Vargas MD) History of arthroscopic knee surgery History of dental surgery Family History Father No problems noted. Mother Hypertension Diabetes Social History Household Members Other:: , retired, well balanced, Housing: House Are you a primary physician primary care sports medicine to a significant other at home: No Do you presently have visiting nurse or other home services: No Patient Tobacco Use Status: Current everyday Tobacco user Tobacco use type: Cigarette Cigarettes Per Day: 10 Years Smoked: (current smoker - onset 12yo, 1-2ppd x 55yrs, now 1/2ppd - 70pyh) e-Cigarette/Vaping Use: Never Used service: Yes Current occupational status: retired Cognitive needs: No Hearing needs: No Vision needs: Yes Questionnaire PHQ-9 Over the last 2 weeks, how often have you been bothered by any of the following problems? 1. Little interest or pleasure in doing things: not at all 2. Feeling down, depressed, or hopeless: not at all 3. Trouble falling or staying asleep, or sleeping too much: not at all 4. Feeling tired or having little energy: not at all 5. Poor appetite or overeating: not at all 6. Feeling bad about yourself - or that you are a failure or have let yourself or your family down: not at all 7. Trouble concentrating on things, such as reading the newspaper or watching television: not at all 8. Moving or speaking so slowly that other people could have noticed. Or the opposite - being so fidgety or restless that you have been moving around a lot more than usual: not at all 9. Thoughts that you would be better off or of hurting yourself in some way: not at all Total score: 0 Depression Screening Interpretation: Negative Depression Screening Done: Yes 22467 - PHQ-9 Billing: Yes Source: Developed by Drs. Reji Gay, Melissa Bacon, Kiko De La Torre and colleagues, with an educational feliciano from [employer]. Thrive Questionnaire Date Thrive assessed: 03/08/24 I am a: Patient What is your living situation today?: I have a steady place to live Within the past 12 months, did the food you bought not last and you didn't have the money to get more?: Sometimes True Within the past 12 months, did you worry whether your food would run out before you got money to buy more?: Sometimes True Do you have trouble paying for medicines?: No Do you have trouble getting transportation to medical appointments?: No Do you have trouble paying your heating and electricity bill?: No Do you have trouble taking care of your child, family member or friend?: No Do you have trouble with day-to-day activities such as bathing, preparing meals, shopping, managing finances, etc.?: No Are you currently unemployed and looking for a job?: No Are you interested in more education?: Yes Please select the resources that you would like help with: Food Currently or been in a relationship where the following occur: No concerns reported THRIVE Score: 2 AUDIT C Alcohol Use Questionnaire (AUDIT-C) 1. How often do you have a drink containing alcohol?: Never Total Score: 0 DOMONIQUE-7 AMB Questionnaire DOMONIQUE-7 Date DOMONIQUE - 7 assessed: 03/08/24 Feeling nervous, anxious, or on edge: 0 = Not at all Not being able to stop or control worryin = Not at all Worrying too much about different things: 0 = Not at all Trouble relaxin = Not at all Being so restless that it is hard to sit still: 0 = Not at all Becoming easily annoyed or irritable: 0 = Not at all Feeling afraid as if something awful might happen: 0 = Not at all Total DOMONIQUE-7 score (0-4 normal; 5-9 mild; 10-14 moderate; 15-21 severe): 0 Source: Developed by Drs. Reji Gay, Melissa Bacon, Kiko De La Torre and colleagues, with an educational feliciano from [employer]. DOMONIQUE-7 Assessment Billing DOMONIQUE-7 Assessment Tool: DOMONIQUE-7 Assessment 65347 Review of Systems Const All systems reviewed & are unremarkable except as noted in HPI and below Eyes Reports no additional complaints ENT Reports no additional complaints Card Reports no additional complaints Resp Reports no additional complaints GI Reports no additional complaints Reports no additional complaints Physical exam (Primary Care) Vital Signs: Last Vital Signs Pulse 57 03/08/24 10:38 BP 118/74 03/08/24 10:38 Pulse Ox 95 03/08/24 10:38 Oxygen Delivery Method Room Air 03/08/24 10:38 BMI result Body Mass Index 30.7 Tobacco/Smoking Status: Tobacco use Status Tobacco use date assessed 03/08/24 03/08/24 10:41 Patient Tobacco Use Status Current everyday Tobacco 03/08/24 10:38 Tobacco use type Cigarette 03/08/24 10:38 e-Cigarette/Vaping Use Never Used 03/08/24 10:38 PHQ-9: PHQ-9 Score PHQ-9: Total score 0 03/08/24 10:53 Depression Screening Interpretation: Negative Thrive Assessment: Date of Thrive Assessment Date Thrive assessed 03/08/24 03/08/24 10:53 Currently or been in a relationship where the following occur: No concerns reported Const General: comfortable HENMT Head: Yes normal to inspection Ears: hearing grossly normal bilaterally Face and sinus: Yes normal facial exam Throat: Yes posterior oropharynx normal Eyes General: appearance normal, both eyes and all related structures Neck Neck: Yes no lymphadenopathy and Yes supple Resp Effort & Inspection: normal respiratory effort Auscultation: clear to auscultation bilaterally Cardio Rhythm: regular rhythm Heart sounds: S1 normal heart sound present and S2 normal heart sound present GI Inspection: Yes normal to inspection Palpation (GI): Soft to palpation Percussion: Yes normal to percussion Auscultation: normal bowel sounds Extrem Other: Diabetic foot exam there is a callus on the right plantar region, absent sensation to monofilament bilaterally Assessment and Plan Assessment & Plan (1) HTN (hypertension): Code(s): I10 - Essential (primary) hypertension Plan: Continue current medications (2) BPH (benign prostatic hyperplasia): Comment: PSA 4.7 Code(s): N40.0 - Benign prostatic hyperplasia without lower urinary tract symptoms Plan: Continue current medications check PSA (3) Hyperlipidemia: Comment: intolerant to statins, patient refuses to take medications for hyperlipidemia Code(s): E78.5 - Hyperlipidemia, unspecified Plan: Continue low-cholesterol diet (4) Insulin dependent type 2 diabetes mellitus: Code(s): E11.9 - Type 2 diabetes mellitus without complications; Z79.4 - skilled nursing (current) use of insulin Plan: A1c is 6.6, patient will try to get Dexcom7 and Jardiance 10 mg will be started. He was advised to decrease Basaglar to 50 units for morning hypoglycemia, ADA diet regular physical activity discussed with the patient. Orders: Orders Comprehensive [place]. Panel Fast 3 Months E11.9 - Type 2 diabetes mellitus without complications, E78.5 - Hyperlipidemia, unspecified, I10 - Essential (primary) hypertension, N40.0 - Benign prostatic hyperplasia without lower urinary tract symptoms, R97.20 - Elevated prostate specific antigen [PSA], Z79.4 - skilled nursing (current) use of insulin UA w Microscopic 3 Months E11.9 - Type 2 diabetes mellitus without complications, E78.5 - Hyperlipidemia, unspecified, I10 - Essential (primary) hypertension, N40.0 - Benign prostatic hyperplasia without lower urinary tract symptoms, R97.20 - Elevated prostate specific antigen [PSA], Z79.4 - skilled nursing (current) use of insulin Microalbumin, Random (w Creat) 3 Months E11.9 - Type 2 diabetes mellitus without complications, E78.5 - Hyperlipidemia, unspecified, I10 - Essential (primary) hypertension, N40.0 - Benign prostatic hyperplasia without lower urinary tract symptoms, R97.20 - Elevated prostate specific antigen [PSA], Z79.4 - skilled nursing (current) use of insulin Hemoglobin A1c 3 Months E11.9 - Type 2 diabetes mellitus without complications, E78.5 - Hyperlipidemia, unspecified, I10 - Essential (primary) hypertension, N40.0 - Benign prostatic hyperplasia without lower urinary tract symptoms, R97.20 - Elevated prostate specific antigen [PSA], Z79.4 - skilled nursing (current) use of insulin Lipid Panel 3 Months E11.9 - Type 2 diabetes mellitus without complications, E78.5 - Hyperlipidemia, unspecified, I10 - Essential (primary) hypertension, N40.0 - Benign prostatic hyperplasia without lower urinary tract symptoms, R97.20 - Elevated prostate specific antigen [PSA], Z79.4 - skilled nursing (current) use of insulin PSA,Total (Free>4and<10) 3 Months R97.20 - Elevated prostate specific antigen [PSA] Referrals Podiatry Referral E11.9 - Type 2 diabetes mellitus without complications, L84 - Corns and callosities Medications: New Dexcom G6 Transmitter (blood-glucose transmitter) As directed 3 ea 2RF NS empagliflozin (Jardiance) 10 mg PO DAILY 90 tabs 0RF Refilled insulin glargine (Basaglar KwikPen U-100 Insulin) 60 units (0.6 mL) subcut QPM 45 mL 3RF Coding Level of Care Code Est Pt Prev Care >65y(49250) Diagnoses HTN (hypertension) I10 BPH (benign prostatic hyperplasia) N40.0 Hyperlipidemia E78.5 Insulin dependent type 2 diabetes mellitus E11.9; Z79.4 Additional Codes DOMONIQUE-7 Assessment Billing - DOMONIQUE-7 Assessment Tool: DOMONIQUE-7 Assessment [id number] ([id number])
== END 2024-03-08 11:28 | disposition home or self-care (01) ==
PROVIDERS: PCP Internal Medicine; Visit Provider Internal Medicine
DX: Z00.00 Encounter for general adult medical examination without abnormal findings (principal); E11.9 Type 2 diabetes mellitus without complications; Z79.4 Long term (current) use of insulin; I10 Essential (primary) hypertension; N40.0 Benign prostatic hyperplasia without lower urinary tract symptoms; E78.5 Hyperlipidemia, unspecified
CPT/HCPCS: 99397

== ENCOUNTER 2024-06-02 08:59 | Outpatient (REF) | payer OTHER, SELFPAY ==
[2024-06-02 10:17] LABS: Appearance Urine Clear; Color Urine Yellow; Glucose Urine UA >=1000 mg/dL (Negative); Leukocyte Esterase Urine Negative (Negative); Nitrite Urine Negative (Negative); PH 5.5 (5.0-9.0); Specific Gravity - Urine 1.025 (1.005-1.025); UMIC TRIGGER UA YES; Urine Blood Negative (Negative); Urine Ketones Negative (Negative); Urine Protein 30 (1+) mg/dL (Neg-Trace)
[2024-06-02 10:22] LABS: Bacteria Urine None Seen (None Seen); Hyaline Casts Urine 0-2 /LPF (0-2); RBC Urine 0-2 /HPF (0-2); Squamous Epithelial Cell Urine 0-2 /HPF (0-2); WBC Urine 0-5 /HPF (0-5)
[2024-06-02 10:39] LABS: Estimated Average Glucose 131 mg/dL; Hemoglobin A1C 167.9329 umol/L; Hemoglobin A1c % 6.2 % (<6.0); Total Hemoglobin (HGBA1C) 3815.5631 umol/L
[2024-06-02 10:46] LABS: Creatinine Urine 109.09 mg/dL; Microalbum/Creatinine Ratio Ur 114.5 ug/mg cr (<30)
[2024-06-02 10:53] LABS: Alanine Aminotransferase 13 U/L (0-40); Alkaline Phosphatase 75 U/L (39-117); Anion Gap 9 (12-20); Aspartate Amino Transferase 18 U/L (5-37); Bilirubin Total 0.7 mg/dL (0.0-1.0); Blood Urea Nitrogen 19 mg/dL (9-16); Calcium 8.6 mg/dL (8.4-10.2); Carbon Dioxide 26 mmol/L (22-29); Chloride 107 mmol/L (96-108); Cholesterol 137 mg/dL (<200); Estimated Glomerular Filt Rate > 60; Glucose Fasting 73 mg/dL (60-99); HDL Cholesterol 29 mg/dL (>40); LDL Cholesterol Calculated 94 mg/dL (<100); Potassium 4.1 mmol/L (3.3-5.1); Sodium 138 mmol/L (135-145); Total Protein 6.6 g/dL (6.5-8.0); Triglycerides 73 mg/dL (<150)
[2024-06-02 10:59] LABS: PSA,Total (Free>4and<10) 2.03 ng/mL (0.00-4.00)
== END 2024-06-02 09:00 | disposition home or self-care (01) ==
LOC: HO.HMGCLDS 08:59
PROVIDERS: PCP Internal Medicine; Visit Provider Internal Medicine
DX: E11.9 Type 2 diabetes mellitus without complications (principal); Z79.4 Long term (current) use of insulin; R97.20 Elevated prostate specific antigen [PSA]; E78.5 Hyperlipidemia, unspecified; I10 Essential (primary) hypertension; N40.0 Benign prostatic hyperplasia without lower urinary tract symptoms; Z12.5 Encounter for screening for malignant neoplasm of prostate
CPT/HCPCS: 36415; 80053; 80061; 81001; 82043; 82570; 83036; 84153

== ENCOUNTER 2024-06-05 11:08 | Outpatient (AMB) | payer OTHER, SELFPAY ==
[2024-06-05 11:09] VITALS: BP 118/64; PULSE 55; O2SAT 97; BMI 30.1
--- NOTE | 2024-06-05 11:09 | MHC.PC.OV ---
Vital Signs 06/05/24 11:09 Height 5 ft 11 in Weight 216 lb BMI 30.1 BP 118/64 Blood Pressure Location Lt brachial Position Sitting Pulse 55 Pulse Source Pulse Oximeter Pulse Oximetry (%) 97 Oxygen Delivery Method Room Air Intake Visit Reasons: 3 months Intake Note: Pt is here today for 3 months follow up visit on labs. Allergies Penicillins Allergy (Verified 06/05/24 11:17) Rash Tguemqe-ZZY-AoV Reductase Inhibitor Adverse Reaction (Intermediate, Verified 06/05/24 11:17) LEG PAIN dapagliflozin [From [facility]] Adverse Reaction (Verified 06/05/24 11:17) frequent urination and painful urination Medication List - Last Reconciled 06/05/24 by Beronica Kim MD amlodipine-benazepril 10-40 mg 1 cap PO BEDTIME atenolol 100 mg PO DAILY blood-glucose sensor (Dexcom G6 Sensor device) Change sensor every 10 days Dexcom G6 Transmitter (blood-glucose transmitter) As directed NS Dexcom G7 Sensor (blood-glucose sensor) As directed NS doxazosin 4 mg PO DAILY empagliflozin (Jardiance) 10 mg PO DAILY finasteride 5 mg PO DAILY gabapentin 300 mg PO BEDTIME gabapentin 600 mg PO BEDTIME insulin glargine (Basaglar KwikPen U-100 Insulin) 60 units (0.6 mL) subcut QPM metformin 1,000 mg PO BID miscellaneous medical supply 1 ea miscellaneous .qd pen needle, diabetic (Droplet Micron Pen Needle) Use to inject insulin with pen daily tamsulosin 0.8 mg (2 x 0.4 mg) PO BEDTIME trazodone 50 mg PO BEDTIME PRN varenicline 1 mg PO BID Tobacco use date assessed: 06/05/24 Dental Screening Dental Screen Date: 08/11/23 HPI 3 months HPI Details Patient presents for the follow-up of hypertension hyperlipidemia type 2 diabetes stable on current medications [facility] Medical History Murmur Nicotine dependence, cigarettes, uncomplicated Colonoscopy refused Neuropathy Sleep apnea BPH (benign prostatic hyperplasia) DM type 2 (diabetes mellitus, type 2) HTN (hypertension) Surgical History History of umbilical hernia repair History of arthroscopic knee surgery History of dental surgery Family History Father No problems noted. Mother Hypertension Diabetes Social History Household Members Other:: , retired, well balanced, Housing: House Are you a primary clinical care leader to a significant other at home: No Do you presently have visiting nurse or other home services: No Patient Tobacco Use Status: Current everyday Tobacco user Tobacco use type: Cigarette Cigarettes Per Day: 10 Years Smoked: (current smoker - onset 12yo, 1-2ppd x 57yrs, now 1/2ppd - 70pyh) e-Cigarette/Vaping Use: Never Used service: Yes Current occupational status: retired Cognitive needs: No Hearing needs: No Vision needs: Yes Questionnaire Thrive Questionnaire Date Thrive assessed: 03/08/24 I am a: Patient What is your living situation today?: I have a steady place to live Within the past 12 months, did the food you bought not last and you didn't have the money to get more?: Sometimes True Within the past 12 months, did you worry whether your food would run out before you got money to buy more?: Sometimes True Do you have trouble paying for medicines?: No Do you have trouble getting transportation to medical appointments?: No Do you have trouble paying your heating and electricity bill?: No Do you have trouble taking care of your child, family member or friend?: No Do you have trouble with day-to-day activities such as bathing, preparing meals, shopping, managing finances, etc.?: No Are you currently unemployed and looking for a job?: No Are you interested in more education?: Yes Please select the resources that you would like help with: Food Currently or been in a relationship where the following occur: No concerns reported THRIVE Score: 2 DOMONIQUE-7 AMB Questionnaire DOMONIQUE-7 Date DOMONIQUE - 7 assessed: 03/08/24 Source: Developed by Drs. Reji Gay, Melissa Bacon, Kiko De La Torre and colleagues, with an educational feliciano from [employer] Review of Systems Const All systems reviewed & are unremarkable except as noted in HPI and below Card Reports no additional complaints Resp Reports no additional complaints GI Reports no additional complaints Reports no additional complaints Physical exam (Primary Care) Vital Signs: Last Vital Signs Pulse 55 06/05/24 11:09 BP 118/64 06/05/24 11:09 Pulse Ox 97 06/05/24 11:09 Oxygen Delivery Method Room Air 06/05/24 11:09 BMI result Body Mass Index 30.1 Tobacco/Smoking Status: Tobacco use Status Tobacco use date assessed 06/05/24 06/05/24 11:14 Patient Tobacco Use Status Current everyday Tobacco 06/05/24 11:09 Tobacco use type Cigarette 06/05/24 11:09 e-Cigarette/Vaping Use Never Used 06/05/24 11:09 Thrive Assessment: Date of Thrive Assessment Date Thrive assessed 03/08/24 06/05/24 11:09 Currently or been in a relationship where the following occur: No concerns reported Const General: no acute distress HENMT Head: Yes normal to inspection Neck Neck: Yes supple Resp Effort & Inspection: normal respiratory effort Auscultation: wheezes and diminished lung sounds Cardio Rhythm: regular rhythm Heart sounds: S1 normal heart sound present and S2 normal heart sound present GI Inspection: Yes normal to inspection Palpation (GI): Soft to palpation Percussion: Yes normal to percussion Auscultation: normal bowel sounds Coding Level of Care Code Est Pt Level 4 (96868) Complex EM visit Add On G2211 Diagnoses HTN (hypertension) I10 DM type 2 (diabetes mellitus, type 2) E11.9 Hyperlipidemia E78.5 COPD (chronic obstructive pulmonary disease) J44.9 Assessment & Plan Assessment & Plan (1) HTN (hypertension): Code(s): I10 - Essential (primary) hypertension Category: Medical Plan: Continue current medications (2) DM type 2 (diabetes mellitus, type 2): Comment: A1c is 6.4, 11/01, A1C 6.0 03/03, Farxiga caused polyuria Code(s): E11.9 - Type 2 diabetes mellitus without complications Category: Medical Plan: A1c is 6.2, continue current medications ADA diet regular exercise (3) Hyperlipidemia: Comment: intolerant to statins, patient refuses to take medications for hyperlipidemia Code(s): E78.5 - Hyperlipidemia, unspecified Category: Medical Plan: Continue low-cholesterol diet (4) COPD (chronic obstructive pulmonary disease): Code(s): J44.9 - Chronic obstructive pulmonary disease, unspecified Category: Medical Plan: START ANORO TOBACCO QUITTING DISCUSSED WITH THE PATIENT, patient is established with lung cancer screening program Orders: Orders Comprehensive [place]. Panel Fast 4 Months E11.9 - Type 2 diabetes mellitus without complications, E78.5 - Hyperlipidemia, unspecified, I10 - Essential (primary) hypertension, Z79.4 - residential (current) use of insulin Complete Blood Count Auto Diff 4 Months E11.9 - Type 2 diabetes mellitus without complications, E78.5 - Hyperlipidemia, unspecified, I10 - Essential (primary) hypertension, Z79.4 - residential (current) use of insulin Hemoglobin A1c 4 Months E11.9 - Type 2 diabetes mellitus without complications, E78.5 - Hyperlipidemia, unspecified, I10 - Essential (primary) hypertension, Z79.4 - residential (current) use of insulin Lipid Panel 4 Months E11.9 - Type 2 diabetes mellitus without complications, E78.5 - Hyperlipidemia, unspecified, I10 - Essential (primary) hypertension, Z79.4 - residential (current) use of insulin Microalbumin, Random (w Creat) 4 Months E11.9 - Type 2 diabetes mellitus without complications, E78.5 - Hyperlipidemia, unspecified, I10 - Essential (primary) hypertension, 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 Medications: [place] [employer] G7 Sensor (blood-glucose sensor) As directed 1 ea 0RF NS umeclidinium-vilanterol 62.5-25 mcg/actuation (Anoro Ellipta) 1 inh inhalation DAILY 60 ea 3RF Changed From insulin glargine (Basaglar KwikPen U-100 Insulin) 60 units (0.6 mL) subcut QPM 45 mL 3RF To insulin glargine (Basaglar KwikPen U-100 Insulin) 50 units (0.5 mL) subcut QPM 45 mL 3RF From atenolol 100 mg PO DAILY 90 tabs 3RF To atenolol 50 mg (1/2 x 100 mg) PO DAILY 90 tabs 3RF Refilled empagliflozin (Jardiance) 10 mg PO DAILY 90 tabs 3RF Discontinued tamsulosin Discontinued Reason: Doctor's Order 0.8 mg (2 x 0.4 mg) PO BEDTIME 180 caps 1RF
== END 2024-06-05 12:02 | disposition home or self-care (01) ==
PROVIDERS: PCP Internal Medicine; Visit Provider Internal Medicine
DX: I10 Essential (primary) hypertension (principal); E11.9 Type 2 diabetes mellitus without complications; E78.5 Hyperlipidemia, unspecified; J44.9 Chronic obstructive pulmonary disease, unspecified

== ENCOUNTER → 2024-06-05 11:08 | Outpatient (BNVA) | payer OTHER, SELFPAY | PROVIDERS: PCP Internal Medicine; Visit Provider Internal Medicine | DX: I10 Essential (primary) hypertension (principal); E11.9 Type 2 diabetes mellitus without complications; E78.5 Hyperlipidemia, unspecified | CPT/HCPCS: 99212 ==

== ENCOUNTER 2024-10-18 14:12 | Outpatient (REF) | payer MEDICARE, OTHER, SELFPAY ==
--- OUTSIDE RECORDS SUMMARY | 2024-10-18 16:31 | XMS_ITS | Continuity of Care Document ---
Author Organization [facility] Address [address] [place] [address] Phone Care Team Providers Care Flow Trader Name Role Phone [place] EnterpriseLivan guerra MD Unavailable Unavailable Allergies, Adverse Reactions, [...] Diagnoses Date Provider Providers Copied on Encounter [facility], [address] [place] [address], [address] [place] [address], tel:[phone] Office No Information 2 Francisco Licona. [address] [place] [address], [address] [place] [address] , [place]. tel:[phone] [facility], [address] [place] [address], [address] [place] [address], tel:[phone] [facility] Office No Information 2 Francisco Licona. [address] [place] [address], [address] [place] [address] , . tel:[phone] Family History Family Member Type Diagnosis Age [...]
[2024-10-18 18:15] LABS: MANUAL DIFF FLAG NO
[2024-10-18 18:30] LABS: Basophils Percent Auto 0.4 % (0-2); Eosinophils Absolute Auto 0.1 X10*3/uL (0.0-0.4); Eosinophils Percent Auto 1.2 % (0-4); Hematocrit 43.4 % (42.0-52.0); Hemoglobin 14.3 g/dl (14.0-18.0); Imm Gran Abs Auto 0.03 X10*3/uL (0.00-0.03); Imm Gran Pct Auto 0.4 % (0.0-0.4); Lymphocytes Absolute Auto 2.1 X10*3/uL (1.2-4.9); Lymphocytes Percent Auto 25.3 % (20-40); Mean Corpuscular HGB Conc 32.9 g/dl (31.0-36.0); Mean Platelet Volume 9.6 fL (9.4-12.4); Monocytes Absolute Auto 0.5 X10*3/uL (0.1-1.2); Monocytes Percent Auto 6.4 % (2-11); Neutrophils Absolute Auto 5.6 x10*3/uL (2.0-8.3); Neutrophils Percent Auto 66.3 % (45-73); Platelet Count 194 X10*3/uL (160-400); Red Blood Count 4.93 X10*6/uL (4.60-5.80); White Blood Count 8.4 X10*3/uL (4.8-10.8)
[2024-10-18 18:58] LABS: Alanine Aminotransferase 11 U/L (0-40); Anion Gap 9 (12-20); Aspartate Amino Transferase 21 U/L (5-37); Bilirubin Total 0.3 mg/dL (0.0-1.0); Blood Urea Nitrogen 15 mg/dL (9-16); Calcium 8.9 mg/dL (8.4-10.2); Carbon Dioxide 28 mmol/L (22-29); Chloride 108 mmol/L (96-108); Cholesterol 123 mg/dL (<200); Estimated Glomerular Filt Rate > 60; Glucose Fasting 138 mg/dL (60-99); HDL Cholesterol 38 mg/dL (>40); LDL Cholesterol Calculated 67 mg/dL (<100); Potassium 4.1 mmol/L (3.3-5.1); Sodium 141 mmol/L (135-145); Total Protein 6.6 g/dL (6.5-8.0); Triglycerides 91 mg/dL (<150)
[2024-10-18 19:02] LABS: Creatinine Urine 98.78 mg/dL; Microalbum/Creatinine Ratio Ur 80.9 ug/mg cr (<30)
[2024-10-18 20:11] LABS: Alkaline Phosphatase 83 U/L (39-117)
[2024-10-19 06:33] LABS: Estimated Average Glucose 120 mg/dL; Hemoglobin A1c % 5.8 % (<6.0); Total Hemoglobin (HGBA1C) 3802.9081 umol/L
== END 2024-10-18 14:13 | disposition home or self-care (01) ==
LOC: HO.WFDLDS 14:12
PROVIDERS: Visit Provider Internal Medicine
DX: E11.9 Type 2 diabetes mellitus without complications (principal); Z79.4 Long term (current) use of insulin; E78.5 Hyperlipidemia, unspecified; I10 Essential (primary) hypertension; E05.90 Thyrotoxicosis, unspecified without thyrotoxic crisis or storm
CPT/HCPCS: 36415; 80053; 80061; 82043; 82570; 83036; 84443; 85025

== ENCOUNTER 2024-10-19 11:15 | Outpatient (AMB) | payer MEDICARE, MEDICAID, SELFPAY ==
--- NOTE | 2024-10-19 11:49 | A.OFFPC_ITS ---
Vital Signs 10/19/24 11:50 Height 5 ft 11 in Weight 197 lb BMI 27.5 BP 126/66 Blood Pressure Location Rt brachial Position Sitting Pulse 54 Pulse Source Pulse Oximeter Pulse Oximetry (%) 96 Oxygen Delivery Method Room Air Intake Visit Reasons: 4months Follow Up Intake Note: Pt is here today for 4 months follow up visit on DM. Pt states that his glucose has been fluctuating and he is not feeling good he has lost weight. Allergies Penicillins Allergy (Verified 10/19/24 11:53) Rash Egeoaal-AMX-JmV Reductase Inhibitor Adverse Reaction (Intermediate, Verified 10/19/24 11:53) LEG PAIN dapagliflozin [From [facility]] Adverse Reaction (Verified 10/19/24 11:53) frequent urination and painful urination Tobacco use date assessed: 10/19/24 Fall risk assessment: No Falls in past year Last assessed Fall Risk: 10/19/24 Dental Screening Dental Screen Date: 08/11/23 HPI 4months Follow Up HPI Details Pt presents for f/u HTN, DM2, hyperlipid, stable on meds. Pt lost 20 lbs in the last 2 months and is concerned about recurrent hyperthyroid.He increased the dose to 100 mg of Atenolol. [facility] Medical History (Updated 10/19/24 @ 20:43 by Beronica Kim MD) Murmur Nicotine dependence, cigarettes, uncomplicated Colonoscopy refused Neuropathy Sleep apnea BPH (benign prostatic hyperplasia) DM type 2 (diabetes mellitus, type 2) HTN (hypertension) Surgical History History of umbilical hernia repair History of arthroscopic knee surgery History of dental surgery Family History Father No problems noted. Mother Hypertension Diabetes Social History Household Members Other:: , retired, well balanced, Housing: House Are you a primary student career development specialist to a significant other at home: No Do you presently have visiting nurse or other home services: No Patient Tobacco Use Status: Current everyday Tobacco user Tobacco use type: Cigarette Cigarettes Per Day: 10 Years Smoked: (current smoker - onset 12yo, 1-2ppd x 55yrs, now 1/2ppd - 70pyh) e-Cigarette/Vaping Use: Never Used service: Yes Current occupational status: retired Cognitive needs: No Hearing needs: No Vision needs: Yes Questionnaire PHQ-9 Over the last 2 weeks, how often have you been bothered by any of the following problems? 1. Little interest or pleasure in doing things: several days 2. Feeling down, depressed, or hopeless: not at all 3. Trouble falling or staying asleep, or sleeping too much: nearly every day 4. Feeling tired or having little energy: nearly every day 5. Poor appetite or overeating: not at all 6. Feeling bad about yourself - or that you are a failure or have let yourself or your family down: not at all 7. Trouble concentrating on things, such as reading the newspaper or watching television: nearly every day 8. Moving or speaking so slowly that other people could have noticed. Or the opposite - being so fidgety or restless that you have been moving around a lot more than usual: not at all 9. Thoughts that you would be better off or of hurting yourself in some way: not at all Total score: 10 Depression Screening Interpretation: Positive (pt is established with a counselor and continues to take Trazodone) Depression Screening Follow-up: Existing condition and In treatment Depression Screening Done: Yes 67960 - PHQ-9 Billing: Yes Source: Developed by Drs. Reji Gay, Melissa Bacon, Kiko De La Torre and colleagues, with an educational feliciano from [employer]. Thrive Questionnaire Date Thrive assessed: 10/19/24 I am a: Patient What is your living situation today?: I have a steady place to live Within the past 12 months, did the food you bought not last and you didn't have the money to get more?: Sometimes True Within the past 12 months, did you worry whether your food would run out before you got money to buy more?: Sometimes True Do you have trouble paying for medicines?: No Do you have trouble getting transportation to medical appointments?: No Do you have trouble paying your heating and electricity bill?: No Do you have trouble taking care of your child, family member or friend?: No Do you have trouble with day-to-day activities such as bathing, preparing meals, shopping, managing finances, etc.?: No Are you currently unemployed and looking for a job?: No Are you interested in more education?: No Please select the resources that you would like help with: None Currently or been in a relationship where the following occur: No concerns reported THRIVE Score: 2 AUDIT C Alcohol Use Questionnaire (AUDIT-C) 1. How often do you have a drink containing alcohol?: Never 3. How often do you have six or more drinks on one occasion?: Never Total Score: 0 DOMONIQUE-7 AMB Questionnaire DOMONIQUE-7 Date DOMONIQUE - 7 assessed: 10/19/24 Feeling nervous, anxious, or on edge: 0 = Not at all Not being able to stop or control worryin = Not at all Worrying too much about different things: 0 = Not at all Trouble relaxin = Not at all Being so restless that it is hard to sit still: 0 = Not at all Becoming easily annoyed or irritable: 0 = Not at all Feeling afraid as if something awful might happen: 0 = Not at all Total DOMONIQUE-7 score (0-4 normal; 5-9 mild; 10-14 moderate; 15-21 severe): 0 Source: Developed by Drs. Reji Gay, Melissa Bacon, Kiko De La Torre and colleagues, with an educational feliciano from [employer]. DOMONIQUE-7 Assessment Billing DOMONIQUE-7 Assessment Tool: DOMONIQUE-7 Assessment 52506 Physical exam (Primary Care) Vital Signs: Last Vital Signs Pulse 54 10/19/24 11:50 BP 126/66 10/19/24 11:50 Pulse Ox 96 10/19/24 11:50 Oxygen Delivery Method Room Air 10/19/24 11:50 BMI result Body Mass Index 27.5 Tobacco/Smoking Status: Tobacco use Status Tobacco use date assessed 10/19/24 10/19/24 11:57 Patient Tobacco Use Status Current everyday Tobacco 10/19/24 11:50 Tobacco use type Cigarette 10/19/24 11:50 e-Cigarette/Vaping Use Never Used 10/19/24 11:50 PHQ-9: PHQ-9 Score PHQ-9: Total score 10 10/19/24 12:23 Depression Screening Interpretation: Positive (pt is established with a counselor and continues to take Trazodone) Depression Screening Follow-up: Existing condition and In treatment Thrive Assessment: Date of Thrive Assessment Date Thrive assessed 10/19/24 10/19/24 12:10 Currently or been in a relationship where the following occur: No concerns reported Const General: no acute distress HENMT Head: Yes normal to inspection Face and sinus: Yes normal facial exam Throat: Yes posterior oropharynx normal Eyes General: appearance normal, both eyes and all related structures Neck Neck: Yes no lymphadenopathy and Yes supple Resp Effort & Inspection: normal respiratory effort Auscultation: clear to auscultation bilaterally Cardio Rhythm: regular rhythm Heart sounds: S1 normal heart sound present and S2 normal heart sound present GI Inspection: Yes normal to inspection Palpation (GI): Soft to palpation Percussion: Yes normal to percussion Auscultation: normal bowel sounds Coding Level of Care Code Est Pt Level 4 (99967) Diagnoses Hyperthyroidism E05.90 COPD (chronic obstructive pulmonary disease) J44.9 Insulin dependent type 2 diabetes mellitus E11.9; Z79.4 HTN (hypertension) I10 Additional Codes DOMONIQUE-7 Assessment Billing - DOMONIQUE-7 Assessment Tool: DOMONIQUE-7 Assessment 92098 ([id number]) PHQ-9 - 37229 - PHQ-9 Billing: Yes ([id number]) Assessment & Plan Assessment & Plan (1) Hyperthyroidism: Comment: hx of hyperthyroidism Code(s): E05.90 - Thyrotoxicosis, unspecified without thyrotoxic crisis or storm Category: Medical Plan: check TSH (2) COPD (chronic obstructive pulmonary disease): Comment: pt declined inhalers Code(s): J44.9 - Chronic obstructive pulmonary disease, unspecified Category: Medical Plan: cutting down on smoking (3) Insulin dependent type 2 diabetes mellitus: Code(s): E11.9 - Type 2 diabetes mellitus without complications; Z79.4 - intermediate designer (current) use of insulin Category: Medical Plan: A1C is 5.8, pt has episodes of hypoglycemia, he will decrease Insulin to 10 units and cont Metformin and Jardiance, f/u in 1 month (4) HTN (hypertension): Code(s): I10 - Essential (primary) hypertension Category: Medical Plan: cont meds Orders: Orders TSH reflex Free T4 Today E05.90 - Thyrotoxicosis, unspecified without thyrotoxic crisis or storm
[2024-10-19 11:50] VITALS: BP 126/66; PULSE 54; O2SAT 96; BMI 27.5
--- OUTSIDE RECORDS SUMMARY | 2024-10-19 13:39 | XMS_ITS | Continuity of Care Document ---
Author Organization [facility] Address [address] [place] [address] Phone Care Team Providers Care Agile Scrum Master Name Role Phone [place] Livan SONG Unavailable Unavailable Allergies, Adverse Reactions, Alerts Substance Reaction Status Criticality No Known Allergies Active No Inform ation Medications Medication Instructions Dosage Effective Dates (start - stop) Status Comments tizanidine 4 mg tablet take 1 tablet by oral route every 24 hours as needed not to exceed 3 doses in 24 hours 4 MG - Active thiamine HCl (vitamin B1) 100 mg tablet - Active Thera-Tabs M 27 mg iron-400 mcg tablet - Active tadalafil 10 mg tablet take 1 tablet by oral route every day 10 MG - Active Sodium Fluoride 5000 Dry Mouth 1.1 % dental paste - Active rosuvastatin 40 mg tablet take 1 tablet by oral route every day 40 MG - Active pantoprazole 40 mg tablet,delayed release take 1 tablet by oral route every day 40 MG - Active Novolog Mix 70-30 FlexPen U-100 Insulin 100 unit/mL subcutaneous pen inject by subcutaneous route as per insulin protocol 0.00 - Active Monoject Insulin Syringe 1 mL - Active metformin 1,000 mg tablet take 1 tablet by oral route 2 times every day with morning and evening meals 1000 MG - Active losartan 100 mg tablet take 1 tablet by oral route every day 100 MG - Active ibuprofen 800 mg tablet take 1 tablet by oral route 3 times every day with food 800 MG - Active hydrochlorothiazide 25 mg tablet take 1 tablet by oral route every day 25 MG - Active Farxiga 5 mg tablet take 1 tablet by oral route every day in the morning 5 MG - Active bupropion HCl XL 150 mg 24 hr tablet, extended release take 1 tablet by oral route every day 150 MG - Active aspirin 81 mg chewable tablet chew 1 tablet by oral route every day 81 MG - Active amlodipine 10 mg tablet take 1 tablet by oral route every day 10 MG - Active Advance Directives Directive Yes / No Effective Date File Name No Information Encounters Encounter Description Practice Location Reason(s) For Visit Diagnoses Date Provider Providers Copied on Encounter [facility], [address] [place] [address], [address] [place] [address], tel:[phone] [facility] Office No Information 2 Francisco Licona. [address] [place] [address], [address] [place] [address] , [place]. tel:[phone] [facility], [address] [place] [address], [address] [place] [address], tel:[phone] [facility] Office No Information 2 Francisco Licona. [address] [place] [address], [address] [place] [address] , . tel:[phone] Family History Family Member Type Diagnosis Age At Onset No Information Payers Payer name Insurance type Covered constitution party ID Authoriza tion(s) No Information Social [...]
== END 2024-10-19 12:35 | disposition home or self-care (01) ==
LOC: HO.HMCC 11:16
PROVIDERS: PCP Internal Medicine; Visit Provider Internal Medicine
DX: E05.90 Thyrotoxicosis, unspecified without thyrotoxic crisis or storm (principal); J44.9 Chronic obstructive pulmonary disease, unspecified; E11.9 Type 2 diabetes mellitus without complications; Z79.4 Long term (current) use of insulin; I10 Essential (primary) hypertension

== ENCOUNTER → 2024-10-19 11:15 | Outpatient (BNVA) | payer MEDICARE, MEDICAID, SELFPAY | PROVIDERS: PCP Internal Medicine; Visit Provider Internal Medicine | DX: E05.90 Thyrotoxicosis, unspecified without thyrotoxic crisis or storm (principal); J44.9 Chronic obstructive pulmonary disease, unspecified; E11.9 Type 2 diabetes mellitus without complications; I10 Essential (primary) hypertension; Z79.4 Long term (current) use of insulin | CPT/HCPCS: 96127; 99212 ==

== ENCOUNTER 2024-12-06 09:40 | Outpatient (AMB) | payer MEDICARE, SELFPAY ==
--- NOTE | 2024-12-06 09:42 | A.OFFPC_ITS ---
Vital Signs 12/06/24 09:49 Height 5 ft 11 in Weight 193 lb 4 oz BMI 26.9 BP 138/76 Blood Pressure Location Rt brachial Position Sitting Respiration 12 Pulse 56 Pulse Source Pulse Oximeter Temp 97.5 F Temp Source Oral Pulse Oximetry (%) 94 Oxygen Delivery Method Room Air Intake Visit Reasons: demarco Beronica Kim Intake Note: Demarco to establish care Emanations Analysis Technician Required: No Allergies Bbxukvx-FSZ-WbT Reductase Inhibitor Adverse Reaction (Intermediate, Verified 12/06/24 09:57) LEG PAIN dapagliflozin [From [facility]] Adverse Reaction (Verified 12/06/24 09:57) frequent urination and painful urination Medication List - Last Reconciled 12/06/24 by Zeynep Plasencia, VALIDATION ENGINEER- amlodipine-benazepril 10-40 mg 1 cap PO BEDTIME atenolol 50 mg (1/2 x 100 mg) PO DAILY Dexcom G7 Sensor (blood-glucose sensor) Check blood sugar 4 times per day, change sensor every 10 days NS doxazosin 4 mg PO DAILY empagliflozin (Jardiance) 10 mg PO DAILY finasteride 5 mg PO DAILY gabapentin 600 mg PO BEDTIME gabapentin 300 mg PO BEDTIME insulin glargine (Basaglar KwikPen U-100 Insulin) 50 units (0.5 mL) subcut QPM metformin 1,000 mg PO BID miscellaneous medical supply 1 ea miscellaneous .qd pen needle, diabetic (Droplet Micron Pen Needle) Use to inject insulin with pen daily trazodone 50 mg PO BEDTIME PRN varenicline tartrate 1 mg PO BID Tobacco use date assessed: 12/06/24 Fall risk assessment: No Falls in past year Last assessed Fall Risk: 12/06/24 Dental Screening Dental Screen Date: 12/06/24 Did you have a dental visit in the last 12 months?: Yes Did you have a dental problem in the last 6 months where you did not have access to dental care?: No Was dental information given to patient?: Patient has dentist HPI HPI Comments History of Present Illness Details 69 y/o M current tobacco user,neuropathy , BPH with chronic urinary retention, COPD, CAD (CT 11/2022), DM2 with complications, HTN, HLD,hx of hyperthyroid, Multiple lung nodules, microalbuminuria, CELESTINA not on CPAP, MDD s/p ventral hernia repair, knee surgery, Social: has a kitten, Kim; 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 Health Maintenance Lung Ca screening colon declined tdap admin today DM Eye 08/2023 cataract, no DM retinopathy Kayce mason Specialists: Optho thoracics Uro Counselor History of Present Illness - The patient is a 69-year-old male pres enting to [facility] for chronic disease management and mental health concerns. Records from previous PCP Dr Kim reviewed. 10/2024 unintentional wt loss. 10/2023 220 lbs today 193lbs. Denies abd pain. Admits early satiety. Has never had a colonoscopy. - Type 2 Diabetes Mellitus: Managed with CGM, Metformin, Jardiance, and Insulin. Insulin dosage self reduced from 50 units/day to 30 units/day d/t hypoglycemia. CGM data reviewed. See below. 2 failed CGM having hard time replacing. having to pay out of pocket. - BPH: Managed with Doxazosin and Finast eride. No recent urology consultations. - Hypertension: Controlled with Amlodipi ne-Benazepril. - Tobacco use disorder: Current smoker, reduced smoking. Interested in lung ca screening; [place] [facility] [place]; transportation issues; takes the bus. Living in [place]. - Peripheral neuropathy: Treated with Ga bapentin, dosage adjusted for drowsiness. - Hyperlipidemia: Not on statins due to muscle aches. - Obstructive Sleep Apnea: Not on treatm ent. - Cataracts: Detected in 2023; no diabet ic retinopathy. States insurance doesnt pay for DM eye exam. - Depression: Seeing a therapist, consid ering [place]. No self-harm history, passive thoughts reported. Etoh dep in retirement remission. - Has a new kitten; lots of scratches to hands. Due for Tdap Review of Systems - General: + weight changes. - Endocrine: Reports type 2 diabetes corey litus; uses CGM, Metformin, Jardiance, and insulin. - Cardiovascular: Reports hypertension; on Amlodipine-Benazepril. - Respiratory: reports obstructive slee p apnea, not under current treatment. - Neurological: Reports peripheral neuro laquita; treated with Gabapentin. - Psychiatric: Reports depression; seeki ng therapy and considering medication. Denies self-harm or suicidal ideation. - Genitourinary: Reports BPH; managed wi th Doxazosin and Finasteride. Denies recent urology consultation. - Ophthalmologic: Reports cataracts; las t diabetic eye exam in August 2023. - Musculoskeletal: Reports muscle aches with statin use; not on statins currently. - Habits: Reports current tobacco use; r educed smoking. Physical Exam General: Well developed, well nourished, in no acute distress. Appears stated age. Head: Normocephalic, atraumatic. Eyes: Pupils are equal, round and reactive to light and accommodation. Conjunctivae are clear. Scleras nonicteric Lungs: Clear to auscultation bilaterally. No rales, rhonchi or wheeze noted. Good air flow in all cormier. Heart: Regular rate and rhythm. 2/6 systolic murmur; no click, rubs or gallops are noted. Abdomen: Bowel sounds present in all quadrants. The abdomen is soft, tender over LLQ, no masses or organomegaly noted. Psych: Mood and affect appropriate. Flat affect. Results: CGM 30 DAY 5.8% 87% IN RANGE 7% LOW 3% VERY LOW 2% HIGH <1 % VERY HIGH Labs 10/2024 a1c 5.8%, + microalbumin otherwise wnl Discussion Notes I discussed with the patient the management of his type 2 diabetes mellitus, including the benefits of continuing Metformin and Jardiance for glycemic control and cardiovascular and renal benefits. We agreed to reduce the insulin dose to 10 units to minimize the risk of hypoglycemia, with the patient monitoring for any significant hyperglycemia. Regarding BPH, we reviewed the lack of recent symptoms or changes, and the patient is not currently seeing a urologist. For hypertension, the current medication regimen appears effective. The patient is advised to consider smoking cessation, given his current tobacco use. We discussed his peripheral neuropathy management with Gabapentin and the need to balance efficacy with side effects like drowsiness. The patient is not on statins due to muscle aches. For depression, we discussed starting Zoloft, including potential side effects and the need for gradual dosage adjustment. The patient expressed interest in starting Zoloft and was provided with a prescription. We reviewed the importance of diabetic eye exams, NN referral to help follow up on the patient's insurance coverage for this along w/ replacement CGMs. Lung cancer screening was discussed, and a referral to [facility] was made. We also discussed the importance of a tetanus booster, given the potential exposure from a kitten scratch. Assessment and Plan 1. Type 2 Diabetes Mellitus - Reduce insulin to 10 units daily. - Monitor blood glucose. - Continue Metformin and Jardiance. 2. Benign Prostatic Hyperplasia (BPH) - Continue Doxazosin and Finasteride. 3. Hypertension - Continue Amlodipine-Benazepril. 4. Tobacco Use Disorder - Encourage smoking cessation. 5. Peripheral Neuropathy - Continue Gabapentin, adjust dosage. 6. Hyperlipidemia - Not on statins; consider alternatives. 7. Depression - Start Zoloft, monitor for side effects . 8. Cataracts - No retinopathy; follow up on eye exam coverage. 9. Lung Cancer Screening - Referral for imaging @ [facility] 10. Tetanus Booster - Administer booster. 11 Unintentional wt loss, LLQ pain Check labs CT abd/pelvis to be done at [facility] per pt request. RTO 3 weeks to fu on imaging, sooner PRN Patient Instructions - Take insulin at reduced dose of 10 uni ts daily. - Monitor blood sugar levels and report high readings. - Continue taking Metformin, Jardiance, and blood pressure medication as prescribed. - Try to quit smoking. - Take Gabapentin at a dose that doesn't make you too sleepy. - Start taking Zoloft as instructed, and let me know if you have side effects. - Make sure to get your eyes checked thi s year. - Get the tetanus shot today for the kit ten scratch. Consent Patient was informed and verbally consented to the use of an ambient scribe for clinic note documentation during this visit. Total time spent caring for the patient today was 50 minutes. This includes time spent before the visit reviewing the chart, time spent during the visit, and time spent after the visit on documentation, reviewing laboratory results, diagnostic imaging, medications, performing a medically necessary evaluation, counseling on diagnoses, care coordination, ordering appropriate tests, ordering appropriate medications, review of tests performed by other providers, reporting test results with the patient, communication with other healthcare providers. [facility] Medical History (Updated 12/06/24 @ 10:46 by Emmy Melchor MA) BPH (benign prostatic hyperplasia) Colonoscopy refused Depression DM type 2 (diabetes mellitus, type 2) HTN (hypertension) Kidney disease Murmur Neuropathy Nicotine dependence, cigarettes, uncomplicated Sleep apnea Thyroid disorder Surgical History (Updated 12/06/24 @ 10:01 by ROMARIO Ríos-) History of arthroscopic knee surgery History of dental surgery History of umbilical hernia repair Status post repair of ventral hernia Family History Father No problems noted. Mother Hypertension Diabetes Social History Household Members Other:: , retired, well balanced, Housing: House Are you a primary care transitions manager to a significant other at home: No Do you presently have visiting nurse or other home services: No Alcohol intake: never Patient Tobacco Use Status: Current everyday Tobacco user Tobacco use type: Cigarette Cigarettes Per Day: 10 Years Smoked: (current smoker - onset 12yo, 1-2ppd x 55yrs, now 1/2ppd - 70pyh) e-Cigarette/Vaping Use: Never Used Second Hand Smoke Exposure: No service: Yes Current occupational status: retired Cognitive needs: No Hearing needs: No Vision needs: Yes Questionnaire PHQ-9 Over the last 2 weeks, how often have you been bothered by any of the following problems? 1. Little interest or pleasure in doing things: more than half the days 2. Feeling down, depressed, or hopeless: more than half the days 3. Trouble falling or staying asleep, or sleeping too much: more than half the days 4. Feeling tired or having little energy: more than half the days 5. Poor appetite or overeating: more than half the days 6. Feeling bad about yourself - or that you are a failure or have let yourself or your family down: more than half the days 7. Trouble concentrating on things, such as reading the newspaper or watching television: not at all 8. Moving or speaking so slowly that other people could have noticed. Or the opposite - being so fidgety or restless that you have been moving around a lot more than usual: not at all 9. Thoughts that you would be better off or of hurting yourself in some way: not at all Total score: 12 Depression Screening Interpretation: Positive Depression Screening Done: Yes 38331 - PHQ-9 Billing: Yes Source: Developed by Drs. Reji Gay, Melissa Bacon, Kiko De La Torre and colleagues, with an educational feliciano from [employer]. Thrive Questionnaire Date Thrive assessed: 12/06/24 I am a: Patient What is your living situation today?: I have a steady place to live Within the past 12 months, did the food you bought not last and you didn't have the money to get more?: Sometimes True Within the past 12 months, did you worry whether your food would run out before you got money to buy more?: Sometimes True Do you have trouble paying for medicines?: No Do you have trouble getting transportation to medical appointments?: No Do you have trouble paying your heating and electricity bill?: No Do you have trouble taking care of your child, family member or friend?: No Do you have trouble with day-to-day activities such as bathing, preparing meals, shopping, managing finances, etc.?: No Are you currently unemployed and looking for a job?: No Are you interested in more education?: No Please select the resources that you would like help with: None Currently or been in a relationship where the following occur: No concerns reported THRIVE Score: 2 AUDIT C Alcohol Use Questionnaire (AUDIT-C) 1. How often do you have a drink containing alcohol?: Never 3. How often do you have six or more drinks on one occasion?: Never Total Score: 0 DOMONIQUE-7 AMB Questionnaire DOMONIQUE-7 Date DOMONIQUE - 7 assessed: 12/06/24 Feeling nervous, anxious, or on edge: 1 = Several days Not being able to stop or control worryin = Not at all Worrying too much about different things: 1 = Several days Trouble relaxin = More than half the days Being so restless that it is hard to sit still: 0 = Not at all Becoming easily annoyed or irritable: 0 = Not at all Feeling afraid as if something awful might happen: 0 = Not at all Total DOMONIQUE-7 score (0-4 normal; 5-9 mild; 10-14 moderate; 15-21 severe): 4 Source: Developed by Drs. Reji Gay, Melissa Bacon, Kiko De La Torre and colleagues, with an educational feliciano from [employer]. DOMONIQUE-7 Assessment Billing DOMONIQUE-7 Assessment Tool: DOMONIQUE-7 Assessment 82103 Physical exam (Primary Care) Vital Signs: Last Vital Signs Temp 97.5 F 12/06/24 09:49 Pulse 56 12/06/24 09:49 Resp 12 12/06/24 09:49 BP 138/76 12/06/24 09:49 Pulse Ox 94 12/06/24 09:49 Oxygen Delivery Method Room Air 12/06/24 09:49 BMI result Body Mass Index 26.9 Tobacco/Smoking Status: Tobacco use Status Tobacco use date assessed 12/06/24 12/06/24 09:44 Patient Tobacco Use Status Current everyday Tobacco 12/06/24 09:44 Tobacco use type Cigarette 12/06/24 09:44 e-Cigarette/Vaping Use Never Used 12/06/24 09:44 Are you ready to quit: No Tobacco cessation counseling provided: Yes Items discussed: Nicotine replacement, QuitWorks and Other Relapse Prevention: discussed the importance of a supportive environment, discussed extending NRT, discussed negative mood or depression after quitting, weight gain after smoking is common and discussed dietary, exercise and/or lifestyle changes Number of minutes spent counselin CPT code: 79655 - 4-10 Minutes Depression Screening Interpretation: Positive Thrive Assessment: Date of Thrive Assessment Date Thrive assessed 12/06/24 12/06/24 09:44 Currently or been in a relationship where the following occur: No concerns reported Office Procedures Glucose Monitoring Details 31278 - Glucose monitoring, continuous-physician I&R Procedure code (CPT) selection complete Immunizations Boostrix Tdap 2.5 Lf unit-8 mcg-5 Lf/0.5 mL intramuscular syringe Performing Provider: GENE Ríos [place] [facility] Administered by: Emmy Melchor MA on 12/06/24 10:41 Dose Route Admin Location Dispensed Lot Number Expiration Date [facility] First Front Ventilator 0.5 mL IM Right Deltoid 0.5 mL [id number] 03/06/27 60528-943-42 SLIDINE VIS Given Date VIS Provided VIS Publication Date 12/06/24 Single Vaccine 21 Eligibility Eligibility Date Funding Source Not [facility] Eligible 12/06/24 Private Coding Level of Care Code Est Pt Level 5 (75379) Complex EM visit Add On G2211 Diagnoses Unexplained weight loss R63.4 Early satiety R68.81 Encounter to establish care Z76.89 DM type 2 causing complication E11.8 Mixed hyperlipidemia E78.2 Hyperlipidemia type: mixed hyperlipidemia Microalbuminuria R80.9 Hypertension due to endocrine disorder I15.2 Hypertension type: secondary to endocrine disorders Nicotine dependence, cigarettes, uncomplicated F17.210 Lung nodule, multiple R91.8 Moderate episode of recurrent major depressive disorder F33.1 Major depression episode severity: moderate 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 Need for Tdap vaccination Z23 CPT Codes Details - CPT: 13913 - Glucose monitoring, continuous-physician I&R ([id number]) Additional Codes Vital Signs *Quality* - CPT code: 72785 - 4-10 Minutes ([id number]) DOMONIQUE-7 Assessment Billing - DOMONIQUE-7 Assessment Tool: DOMONIQUE-7 Assessment 45964 ([id number]) PHQ-9 - 95517 - PHQ-9 Billing: Yes ([id number]) Assessment & Plan Assessment & Plan (1) Unexplained weight loss: Code(s): R63.4 - Abnormal weight loss Category: Medical (2) Early satiety: Code(s): R68.81 - Early satiety Category: Medical (3) Encounter to establish care: Code(s): Z76.89 - Persons encountering health services in other specified circumstances (4) DM type 2 causing complication: Comment: Farxiga caused polyuria Code(s): E11.8 - Type 2 diabetes mellitus with unspecified complications Category: Medical (5) Hyperlipidemia: Comment: intolerant to statins, patient refuses to take medications for hyperlipidemia Code(s): E78.5 - Hyperlipidemia, unspecified Category: Medical Qualifiers: Hyperlipidemia type: mixed hyperlipidemia Qualified Code(s): E78.2 - Mixed hyperlipidemia (6) Microalbuminuria: Comment: on ACEI and SGLT Code(s): R80.9 - Proteinuria, unspecified Category: Medical (7) HTN (hypertension): Code(s): I10 - Essential (primary) hypertension Category: Medical Qualifiers: Hypertension type: secondary to endocrine disorders Qualified Code(s): I15.2 - Hypertension secondary to endocrine disorders (8) Nicotine dependence, cigarettes, uncomplicated: Comment: (current smoker - onset 12yo, 1-2ppd x 55yrs, now 1/2ppd - 70pyh) Smoking Cessation How to Quit There are a lot of ways to quit smoking and many resources to help you. Family members, friends, and co-workers may be supportive or encouraging, but to be successful the desire and commitment to quit must be your own. Most people who have been able to successfully quit smoking made at least one unsuccessful attempt in the past. Try not to view past attempts to quit as failures, but rather as learning experiences. Stopping smoking or using smokeless tobacco is difficult, but anyone can do it. Know the symptoms to expect when you stop. Common symptoms include: ? An intense craving for nicotine ? Anxiety, tension, restlessness, frustration, or impatience ? Difficulty concentrating ? Drowsiness or trouble sleeping, as well as bad dreams and nightmares ? Drowsiness and trouble sleeping ? Headaches ? Increased appetite and weight gain ? Irritability or depression How severe your symptoms are depends on how long you smoked and how many cigarettes you smoked each day. Feel ready to quit? ? First and foremost, set a quit date and quit completely on that day. Before your quit date, you may begin reducing your cigarette use. But remember, there is no safe level of cigarette smoking. ? List the reasons why you want to quit. Include both short- and long-term jameson efits. ? Identify the times you are most likely to smoke. For example, do you tend to smoke when feeling stressed or down? When out at night with friends? While drinking coffee or alcohol? When bored? While driving? Right after a meal or sex? During a work break? While watching TV or playing cards? When you are with other smokers? ? Let all of your friends, family, and co-workers know of your plan to stop smoking and your quit date. Just being aware that they know what you're going through can be helpful, especially when you are grumpy. ? Get rid of all your cigarettes just before the quit date, and clean out anything that smells like smoke, such as clothes and furniture. Make a plan about what you will do instead of smoking at those times when you are most likely to smoke. ? Be as specific as possible. For example, drink tea instead of coffee -- tea may not trigger the desire for a cigarette. Or, take a walk when you feel stressed. ? Remove ashtrays and cigarettes from the car. Place pretzels or hard candies there instead. Pretend-smoke with a straw. ? Find activities that focus your hands and mind but are not taxing or fattening. Computer games, solitaire, knitting, sewing, and crossword puzzles may help. ? If you normally smoke after eating, find other ways to end a meal. Play a tape or CD, eat a piece of fruit, get up and make a phone call, or take a walk (a good distraction that also mijares calories). Make other changes in your lifestyle. ? Change your daily schedule and habits. Eat at different times or eat several small meals instead of three large ones. Sit in a different chair or even a different room. ? Satisfy your oral habits by eating celery or other low-calorie snack, chewing sugarless gum, or sucking on a cinnamon stick. ? Go to public places and restaurants where smoking is prohibited or restricted. ? Eat regular meals and don't eat too much candy or sweet things. ? Get more exercise. Take walks or ride a bike. Exercise helps relieve the urge to smoke. Set short-term quitting goals and reward yourself when you meet them. ? Every day, put the money you normally spend on cigarettes in a jar. Then buy something pleasurable after a period of time. ? Try not to think about all the days ahead you will need to avoid smoking. Take it one day at a time. ? Even one puff or one cigarette will make your desire for more cigarettes even stronger. However, it is normal to make mistakes. So even if you have one cigarette, you don't need to take the next one. Other tips to help you quit smoking and stick to it: ? Enroll in a smoking cessation program (hospitals, health departments, community centers, and work sites often offer programs). Learn about self-hypnosis or other techniques. ? Ask your health care provider about prescription medications that are safe and appropriate for you. ? Find out about nicotine patches, gum, and sprays. The [place] [employer]'s web site -- www.cancer.org -- is an excellent resource for smokers who are trying to quit, and the [place] [employer] can help some smokers kick the habit. Above all, don't get discouraged if you aren't able to quit smoking the first time. Nicotine addiction is a hard habit to break. Try something different next time. Develop new strategies, and try again. Many people take several attempts to finally kick the habit. Code(s): F17.210 - Nicotine dependence, cigarettes, uncomplicated Category: Medical (9) Lung nodule, multiple: Comment: CT scan 08/03, unchanged since 2016, annual Code(s): R91.8 - Other nonspecific abnormal finding of lung field Category: Medical (10) MDD (major depressive disorder), recurrent episode: Code(s): F33.9 - Major depressive disorder, recurrent, unspecified Category: Medical Qualifiers: Major depression episode severity: moderate Qualified Code(s): F33.1 - Major depressive disorder, recurrent, moderate (11) Alcoholism in remission: Code(s): F10.21 - Alcohol dependence, in remission Category: Medical (12) Need for Tdap vaccination: Code(s): Z23 - Encounter for immunization Plan . Orders: Orders Amylase Today R63.4 - Abnormal weight loss Complete Blood Count no Diff Today R63.4 - Abnormal weight loss CT abdomen pelvis wo IV con Today R63.4 - Abnormal weight loss, R68.81 - Early satiety Lipase Today R63.4 - Abnormal weight loss TDaP Immunization Today Z23 - Encounter for immunization Referrals Nurse Navigator Referral E11.8 - Type 2 diabetes mellitus with unspecified complications Lung Cancer Screening Referral F17.210 - Nicotine dependence, cigarettes, uncomplicated, R91.8 - Other nonspecific abnormal finding of lung field Medications: New sertraline 1/2 tab daily x 2 weeks, then increase to 1 tab daily 50 mg PO DAILY 30 tabs 1RF Changed From insulin glargine (Basaglar KwikPen U-100 Insulin) 50 units (0.5 mL) subcut QPM 45 mL 0RF To insulin glargine (Basaglar KwikPen U-100 Insulin) 10 units (0.1 mL) subcut QPM 45 mL 0RF Patient Instructions: Patient Instructions - Take insulin at reduced dose of 10 units daily. - Monitor blood sugar levels and report high readings. - Continue taking Metformin, Jardiance, and blood pressure medication as prescribed. - Try to quit smoking. - Take Gabapentin at a dose that doesn't make you too sleepy. - Start taking Zoloft as instructed, and let me know if you have side effects. - Make sure to get your eyes checked this year. - Get the tetanus shot today for the kitten scratch. - Get labs done today; attend [facility]. - Come back to the office in 3 weeks to review results. Walk-In Care (Urgent Care): We Make it Easy Walk-in for urgent medical issues such as: ? Seasonal Allergies ? Insect Bites ? Cough ? Diarrhea ? Acute Asthma Attacks ? Back, Knee or Joint Pain ? Ear Infection ? Fever without a Rash ? Headaches ? Nausea ? [facility] [facility], Rash or Skin Irritation ? Sore Throat ? Sports Physicals ? Vomiting Most insurances are accepted. Patients do not need to be part of the [facility] to seek care at the walk-in clinic. Locations [address] [facility] , [place] [address] ? [phone] [facility] in [place] provides services to ages 18 and over. Open Wednesday-Wednesday: 8 a.m. to 5 p.m. and Wednesday: 9 a.m. to 3 p.m.* *Hours may vary due to staffing availability. To confirm Walk-In Care hours in [place], please call [phone]. [address] [place] [address] ? [phone] [facility] in [place] provides services to ages 12 and over. Open Wednesday-Wednesday: 8 a.m. to 5 p.m. Hours may vary due to staffing availability. To confirm Walk-In Care hours in [place], please call [phone]. LABORATORY SERVICES: [facility] ? Primary Location [address] [place] [address] Wednesday through Wednesday 6:00 AM ? 5:00 PM Wednesday 7:00 AM ? 11:00 AM* [phone] The [facility] is centrally located near the front entrance of the [facility] for easy outpatient access. Convenient parking is provided for outpatients. *Hours may vary due to staffing availability. To confirm Laboratory hours for any location, please call [phone]. Offsite Location For your convenience, we offer offsite laboratory draw stations at the following locations: [address] [place] [address] ? [facility] [address], [address] Wednesday through Wednesday 7:30 AM ? 1:00 PM* [phone] *Hours may vary due to staffing availability. To confirm Laboratory hours for any location, please call [phone]. [place] ? [address], [place] Wednesday through Wednesday 6:00 AM ? 3:30 PM* Wednesday 6:30 AM ? 3 PM* [phone] *Hours may vary due to staffing availability. To confirm Laboratory hours for any location, please call [phone]. [address] [facility] Wednesday through Wednesday 7:30 AM ? 4:00 PM* [phone] *Hours may vary due to staffing availability. To confirm Laboratory hours for any location, please call [phone]. [address] [facility] Wednesday through 9:00 AM ? 4:00 PM* *Hours may vary due to staffing availability. To confirm Laboratory hours for any location, please call [phone]. Appointments are not necessary. Walk-ins are welcome. Like all the departments throughout the [facility], our Lab undergoes frequent reviews to ensure the quality and accuracy of test results, and our staff takes special pride in its status as a nationally accredited facility. Patient Portal: ONE PATIENT. ONE RECORD. BETTER CARE. [facility] has a fully integrated, cutting- edge mobile electronic health information system that has revolutionized the way we care for our patients and manage our organization. This system improves communication and coordination enabling us to provide safe, higher-quality care, and an overall positive experience for staff and patients. Our first priority, as always, is to deliver the highest quality care possible. The system is running in the background supporting that priority. This portal is for all [facility] services and practices. If you are experiencing any technical difficulties with enrolling or logging into the Patient Portal please complete the [facility] Patient Portal Technical Support Form. [facility] now offers a new secure on-line interactive tool for patients to review their health information ? ?Patient Portal. This interactive web portal will enable patients and their families to take an active role in their care by providing easy, secure access to their health information via the internet. The Patient Portal provides patients with instant access to their health information, including laboratory results, medications, allergies, demographic information, visit history, and more. In addition to managing their own care, parents and health care proxies with authorized consent will appreciate the ability to access the records of those individuals for whom they provide care. Please note: if you wish to gain access (Proxy) to another patient?s portal, you will be required to come to the Medical Records Department in person at [facility]. Both the patient giving proxy access and the proxy will need to provide photo identification and complete the appropriate authorization. The Patient Portal also allows track their appointments online. The [facility] Patient Portal also saves patients time by allowing them to submit updates to their demographic and contact information prior to their visits. Portal email notifications will also alert patients to any new activity on their portal, such as test results and new appointments. In order to initially enroll in the [facility] Patient Portal, you will need to enter some required information including the following: * your [facility] Medical Record number * your personal home email address * name * date of Please note: In order to enroll in the [facility] Patient Portal, we need to have your email address on file in your electronic medical record. ?The email address needs to be specific for one person (yourself) in order for your Portal enrollment to be successful. ?You can update your email address in person with our Registration staff when you are registering for a hospital visit. ?Otherwise, you will need to come to the Health Information Management (Medical Records) Department at [facility]. ?We are open from Wednesday ? Wednesday from 7:30 a.m. ? 4:30 p.m. ?You will be required to present a photo id. Once you have successfully enrolled in the Patient Portal, you will receive a one-time user id and password for the Portal, sent to your email address. ?This will allow you to log into the Patient Portal within 99 hrs and reset your own logon id and password, and define personal security questions. ?Once your permanent login and password have been set, you can log into the [facility] Patient Portal at any time via the blue button above or from the Portal Logon button on any page of the [facility] website. [facility] encourage all of our patients to enroll in Patient Portal as it presents a valuable opportunity for patients and their families to actively participate in their care and stay healthy Welcome to [facility]. ?We look forward to working with you. National Suicide and Crisis Lifeline: Available 24 hours a day, 7 days a week, 365 days a year Dial 988 with any telephone to speak to someone [facility] (Mental / Behavioral health therapist: [address] [place] [address] [facility] at [facility][NOTE 2]: [address] [place] [address] Open from 10am - 12pm (walk ins welcome) [facility] 2] Crisis Services: [address] [place] [address] Walk in hours from 10am - 12pm Behavioral health Network: [address] [place], [place] [id number] [place] [address] [phone] Wednesday through Wednesday 8am - 8pm Wednesday and Wednesday 9am - 5pm Crisis Hotlines Suicide prevention, domestic violence, and other crisis hotlines for youth, young adults, and their friends and families. [place] [employer] Safeline: The [employer] Runaway Safeline helps youth who have run away, are thinking about running away, or who already ran away but are ready to come home. Parents and guardians can also contact the hotline if they are worried about their child running away or if their child has already left home. The hotline is available 24 hours a day, seven days a week. Youth, parents, and guardians can also use the online chat feature on the [employer] Safeline's website to ask for help and get support, [place] [address]. National Runaway Safeline National Suicide Prevention Lifeline: The National Suicide Prevention Lifeline is a network of local crisis centers that are available 01/02 to provide support for youth and adults who are in any kind of emotional crisis. In addition to the main hotline number listed above, there are several other numbers to call depending on your needs: Peruvian Language: Deaf and Hard of [phone] Veterans: Disaster Distress: Anyone can also use their online chat feature on their website. National Suicide Prevention Lifeline [facility] Helpline: The [facility] Helpline is available to anyone in [place] who is need of emotional support. Anyone can call or text the helpline to receive help from specially trained volunteers. [place] high school and college students can also get online support through the IMH[employer]_ program. For high school students, volunteers ages 15-18 are available Wednesday- from 6-9PM. For college students, [employer]Hear_ is available Wednesday-Wednesday from 5-9PM. The [employer] Project - The [employer]erg[employer] Project is a 01/02 crisis intervention and suicide prevention hotline for LGBTQ youth. Youth can also text [employer] to for support, or use the online chat feature on the [employer] Project's website. [employer] is available Wednesday-Wednesday between 3-10PM. [employer] is available seven days a week between 3-10PM. SafeLink: SafeLink is for anyone who is being affected by domestic violence or dating viol ence. Volunteers at SafeLink speak Panamanian and Peruvian, and [employer] also has a service that can provide translation in more than 130 languages. TTY:
[2024-12-06 09:49] VITALS: BP 138/76; PULSE 56; RESP 12; TEMP 36.4; O2SAT 94; BMI 26.9
--- OUTSIDE RECORDS SUMMARY | 2024-12-06 10:23 | XMS_ITS | Continuity of Care Document ---
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 [address] [place] [address], [address] [place] [address] , [place]. tel:[phone] [facility], [address] [place] [address], [address] [place] [address], tel:[phone] [facility] No Information 2 Francisco Licona. [address] [place] [address], [address] [place] [address] , . tel:[phone] Family History Family Member Type Diagnosis Age [...]
== END 2024-12-06 10:48 | disposition home or self-care (01) ==
LOC: HO.HMCFM 09:40
PROVIDERS: PCP Nurse Practitioner Family; Visit Provider Nurse Practitioner Family
DX: R63.4 Abnormal weight loss (principal); R68.81 Early satiety; Z76.89 Persons encountering health services in other specified circumstances; E11.8 Type 2 diabetes mellitus with unspecified complications; E78.2 Mixed hyperlipidemia; R80.9 Proteinuria, unspecified; I15.2 Hypertension secondary to endocrine disorders; F17.210 Nicotine dependence, cigarettes, uncomplicated; R91.8 Other nonspecific abnormal finding of lung field; F33.1 Major depressive disorder, recurrent, moderate; F10.21 Alcohol dependence, in remission; Z23 Encounter for immunization

== ENCOUNTER → 2024-12-06 09:40 | Outpatient (BNVA) | payer MEDICARE, SELFPAY | PROVIDERS: PCP Nurse Practitioner Family; Visit Provider Nurse Practitioner Family | DX: Z13.89 Encounter for screening for other disorder (principal) | CPT/HCPCS: 90471; 90715; 96127; 99212 ==

== ENCOUNTER 2024-12-06 11:15 | Outpatient (REF) | payer MEDICARE, SELFPAY ==
[2024-12-06 14:37] LABS: Hematocrit 42.7 % (42.0-52.0); Mean Corpuscular HGB Conc 32.8 g/dl (31.0-36.0); Mean Corpuscular Hemoglobin 29.5 pg (27.0-33.0); Mean Corpuscular Volume 89.9 fL (80.0-98.0); Mean Platelet Volume 10.1 fL (9.4-12.4); Platelet Count 210 X10*3/uL (160-400); Red Blood Count 4.75 X10*6/uL (4.60-5.80); Red Cell Distribution Width 13.7 % (11.0-16.0)
[2024-12-06 15:09] LABS: Amylase 63 U/L (28-100); Lipase 14 U/L (8-78)
== END 2024-12-06 11:16 | disposition home or self-care (01) ==
LOC: HO.WFDLDS 11:15
PROVIDERS: Visit Provider Nurse Practitioner Family
DX: R63.4 Abnormal weight loss (principal); R68.81 Early satiety; N40.1 Benign prostatic hyperplasia with lower urinary tract symptoms; R33.8 Other retention of urine; J44.9 Chronic obstructive pulmonary disease, unspecified; I25.10 Atherosclerotic heart disease of native coronary artery without angina pectoris; I10 Essential (primary) hypertension; E78.5 Hyperlipidemia, unspecified; G47.33 Obstructive sleep apnea (adult) (pediatric); E11.8 Type 2 diabetes mellitus with unspecified complications; E78.2 Mixed hyperlipidemia; R80.9 Proteinuria, unspecified; I15.2 Hypertension secondary to endocrine disorders; F17.210 Nicotine dependence, cigarettes, uncomplicated; R91.8 Other nonspecific abnormal finding of lung field; F33.1 Major depressive disorder, recurrent, moderate; F10.21 Alcohol dependence, in remission; Z23 Encounter for immunization; Z76.89 Persons encountering health services in other specified circumstances; Z99.89 Dependence on other enabling machines and devices
CPT/HCPCS: 36415; 82150; 83690; 85027; 90471; 90715; 96127; 99212

== ENCOUNTER 2025-02-02 10:55 | Outpatient (AMB) | payer MEDICARE, SELFPAY ==
--- OUTSIDE RECORDS SUMMARY | 2022-04-08 09:45 | XMS_ITS | Continuity of Care Document ---
Author Organization [facility] Address [address] [place] [address] Phone Care Team Providers Care Interior Horticulturist Name Role Phone [place] guerra MD Unavailable Unavailable Allergies, Adverse Reactions, [...] Diagnoses Date Provider Providers Copied on Encounter [facility], [address] [place] [address], [address] [place] [address], tel:[phone] [facility] Office No Information 2 Francisco Licona. [address] [place] [address], [address] [place] [address] , [place]. tel:[phone] [facility], [address] [place] [address], [address] [place] [address], tel:[phone] [facility] Office No Information 2 Francisco Licona. [address] [place] [address], [address] [place] [address] , . tel:[phone] Family History Family Member Type Diagnosis Age [...]
--- NOTE | 2025-02-02 07:38 | MHC.PC.OV ---
Intake Visit Reasons: CT F/U Allergies Iasbomm-ACK-XuK Reductase Inhibitor Adverse Reaction (Intermediate, Verified 02/02/25 07:38) LEG PAIN dapagliflozin (From [facility]) Adverse Reaction (Verified 02/02/25 07:38) frequent urination and painful urination Medication List - Last Reconciled 02/02/25 by Zeynep Plasencia, [facility]- amlodipine-benazepril 10-40 mg 1 cap PO BEDTIME atenolol 50 mg (1/2 x 100 mg) PO DAILY Dexcom G7 Sensor (blood-glucose sensor) Check blood sugar 4 times per day, change sensor every 10 days NS doxazosin 4 mg PO DAILY empagliflozin (Jardiance) 10 mg PO DAILY finasteride 5 mg PO DAILY gabapentin 600 mg PO BEDTIME gabapentin 300 mg PO BEDTIME insulin glargine (Basaglar KwikPen U-100 Insulin) 10 units (0.1 mL) subcut QPM metformin 1,000 mg PO BID miscellaneous medical supply 1 ea miscellaneous .qd pen needle, diabetic (Droplet Micron Pen Needle) Use to inject insulin with pen daily sertraline 50 mg PO DAILY trazodone 50 mg PO BEDTIME PRN varenicline tartrate 1 mg PO BID Tobacco use date assessed: 12/06/24 Dental Screening Dental Screen Date: 12/06/24 HPI HPI Comments History of Present Illness Details 69 y/o M current tobacco user,neuropathy, BPH with chronic urinary retention, COPD, CAD (CT 11/2022), DM2 with complications, HTN, HLD,hx of hyperthyroid, Multiple lung nodules, microalbuminuria, CELESTINA not on CPAP, MDD s/p ventral hernia repair, knee surgery, Social: 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 Health Maintenance Lung Ca screening colon declined tdap admin today DM Eye 08/2023 cataract, no DM retinopathy Kayce mason Specialists: Optho thoracics Uro Counselor History of Present Illness - The patient is a 69-year-old male presenting with management of unintentional weight loss and abdominal symptoms. - CT scan of abdomen due to weight loss and abdominal tenderness; denied by insurance. - Maintains weight, reports occasional early satiety and historical left quadrant tenderness but only after laying on this side while sleeping - Neuropathic symptoms addressed with gabapentin 900mg QHS; exploring alternatives due to morning grogginess - Consistent use of sertraline without significant mood changes; drowsiness noted so taking at HS. Denies SI/HI - Type 2 DM managed, reporting effective control with current insulin dose adjustments now taking 20 units/QD Review of Systems - Gastrointestinal: Denies abdominal pain, reports left side discomfort during bowel movements, early satiety. - Neurological: Reports dizziness reduction with gabapentin dose adjustment; no seizures. - Psychiatric: Reports no significant mood improvement with sertraline; interested in ADHD medication due to history. - Endocrine: Reports effective glucose management with current insulin dosage adjustments. Results - Imaging: Lung cancer screening CT scan included partial abdomen; findings ?unremarkable? for abdominal organs. Assessment and Plan 1. Unintentional weight loss - Consider insurance resubmission for CT scan. - Potential colonoscopy referral. Pt declined the above. Feels well. Advised to monitor wt and if develops sx or cont to lose weight; recommend further work up CT of lungs imaged upper part of abd, no specific mention of liver or pancreas but unremarkable 2. Major depressive disorder - Continue sertraline at 50 mg. Refill sent - Lamotrigine - see below 3. Neuropathy - Adjust gabapentin, Titrate to lowest effective dose d/t grogginess in the AM; start lamotrigine 25mg and titrate to effect. Edu on side effects. The goal of this is to help his neuropathy and mood. 4. Type 2 Diabetes Mellitus - Maintain current insulin dose. RTO Sept for AWV, sooner PRN Telehealth Attestation Documentation for the telephone conversation visit has been reviewed and confirmed for accuracy. The patient has been explained that this is an interactive (audio/video) telehealth encounter and what that consists of. The patient understands and wishes to proceed. Videum platform was used. Total time spent caring for the patient today was 31 minutes. This includes time spent before the visit reviewing the chart, time spent during the visit, and time spent after the visit on documentation, reviewing laboratory results, diagnostic imaging, medications, performing a medically necessary evaluation, counseling on diagnoses, care coordination, ordering appropriate tests, ordering appropriate medications, review of tests performed by other providers, reporting test results with the patient, communication with other healthcare providers. [facility] Medical History (Updated 01/04/25 @ 08:52 by Zeynep Plasencia, [facility]) BPH (benign prostatic hyperplasia) Colonoscopy refused Depression DM type 2 (diabetes mellitus, type 2) HTN (hypertension) Kidney disease Murmur Neuropathy Nicotine dependence, cigarettes, uncomplicated Sleep apnea Thyroid disorder Surgical History (Updated 12/06/24 @ 10:01 by Zeynep Plasencia [facility]) History of arthroscopic knee surgery History of dental surgery History of umbilical hernia repair Status post repair of ventral hernia Family History Father No problems noted. Mother Hypertension Diabetes Social History Household Members Other:: , retired, well balanced, Housing: House Are you a primary cattle care worker to a significant other at home: No Do you presently have visiting nurse or other home services: No Alcohol intake: never Patient Tobacco Use Status: Current everyday Tobacco user Tobacco use type: Cigarette Cigarettes Per Day: 10 Years Smoked: (current smoker - onset 12yo, 1-2ppd x 55yrs, now 1/2ppd - 70pyh) Packs per year/per ci.00 e-Cigarette/Vaping Use: Never Used Second Hand Smoke Exposure: No service: Yes Current occupational status: retired Cognitive needs: No Hearing needs: No Vision needs: Yes Questionnaire Thrive Questionnaire Date Thrive assessed: 10/19/24 DOMONIQUE-7 AMB Questionnaire DOMONIQUE-7 Date DOMONIQUE - 7 assessed: 12/06/24 Source: Developed by Drs. Reji Gay, Melissa Bacon, Kiko De La Torre and colleagues, with an educational feliciano from [employer]. Physical exam (Primary Care) Tobacco/Smoking Status: Tobacco use Status Tobacco use date assessed 12/06/24 02/02/25 07:38 Patient Tobacco Use Status Current everyday Tobacco 02/02/25 07:38 Tobacco use type Cigarette 02/02/25 07:38 e-Cigarette/Vaping Use Never Used 02/02/25 07:38 Thrive Assessment: Date of Thrive Assessment Date Thrive assessed 10/19/24 02/02/25 07:38 Telehealth Telehealth Telehealth Platform: [facility] Location of provider rendering services: practice address Location of patient: address on file Patient Identification confirmed using: Name, : Yes Telehealth method: voice only Patient verbally consented to treatment: Yes Patient verbally consented to billing insurance company: Yes Patient informed of any privacy concerns related to visit: Yes Minutes spent on Phone/Video with Pt.: 14 Coding Level of Care Code Tele Est Pt Level 4 (21198) Complex EM visit Add On G2211 Diagnoses Moderate episode of recurrent major depressive disorder F33.1 Major depression episode severity: moderate 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 DM type 2 causing complication E11.8 Unexplained weight loss R63.4 Neuropathy G62.9 Early satiety R68.81 Assessment & Plan Assessment & Plan (1) MDD (major depressive disorder), recurrent episode: Code(s): F33.9 - Major depressive disorder, recurrent, unspecified Category: Medical Qualifiers: Major depression episode severity: moderate Qualified Code(s): F33.1 - Major depressive disorder, recurrent, moderate (2) Alcoholism in remission: Code(s): F10.21 - Alcohol dependence, in remission Category: Medical (3) DM type 2 causing complication: Comment: Farxiga caused polyuria Code(s): E11.8 - Type 2 diabetes mellitus with unspecified complications Category: Medical (4) Unexplained weight loss: Code(s): R63.4 - Abnormal weight loss Category: Medical (5) Neuropathy: Code(s): G62.9 - Polyneuropathy, unspecified Category: Medical (6) Early satiety: Code(s): R68.81 - Early satiety Category: Medical Plan , Medications: New lamotrigine 1 tab daily x 2 weeks then increase to 2 tabs daily 25 mg PO DAILY 45 tabs 1RF 30 days gabapentin 100 mg PO TID 90 caps 0RF 30 days Changed From sertraline 1/2 tab daily x 2 weeks, then increase to 1 tab daily 50 mg PO DAILY 30 tabs 1RF To sertraline 50 mg PO DAILY 90 tabs 1RF Refilled gabapentin 300 mg PO BEDTIME 90 caps 3RF
== END 2025-02-02 11:13 | disposition home or self-care (01) ==
LOC: HO.HMCFM 10:55
PROVIDERS: PCP Nurse Practitioner Family; Visit Provider Nurse Practitioner Family
DX: F33.1 Major depressive disorder, recurrent, moderate (principal); F10.21 Alcohol dependence, in remission; E11.8 Type 2 diabetes mellitus with unspecified complications; R63.4 Abnormal weight loss; G62.9 Polyneuropathy, unspecified; R68.81 Early satiety

== ENCOUNTER 2025-02-26 08:08 | Outpatient (AMB) | payer MEDICARE, SELFPAY ==
--- OUTSIDE RECORDS SUMMARY | 2022-04-08 09:45 | XMS_ITS | Continuity of Care Document ---
Author Organization [facility] Address [address] [place] [address] Phone Care Team Providers Care Condenser Tester Name Role Phone [place] guerra MD Unavailable Unavailable Allergies, Adverse Reactions, Alerts Substance Reaction Status Criticality No Known Allergies Active No Inform ation Medications Medication Instructions Dosage Effective Dates (start - stop) Status Comments amlodipine 10 mg tablet take 1 tablet by oral route every day 10 MG - Active aspirin 81 mg chewable tablet chew 1 tablet by oral route every day 81 MG - Active bupropion HCl XL 150 mg 24 hr tablet, extended release take 1 tablet by oral route every day 150 MG - Active Farxiga 5 mg tablet take 1 tablet by oral route every day in the morning 5 MG - Active hydrochlorothiazide 25 mg tablet take 1 tablet by oral route every day 25 MG - Active ibuprofen 800 mg tablet take 1 tablet by oral route 3 times every day with food 800 MG - Active losartan 100 mg tablet take 1 tablet by oral route every day 100 MG - Active metformin 1,000 mg tablet take 1 tablet by oral route 2 times every day with morning and evening meals 1000 MG - Active Monoject Insulin Syringe 1 mL - Active Novolog Mix 70-30 FlexPen U-100 Insulin 100 unit/mL subcutaneous pen inject by subcutaneous route as per insulin protocol 0.00 - Active pantoprazole 40 mg tablet,delayed release take 1 tablet by oral route every day 40 MG - Active rosuvastatin 40 mg tablet take 1 tablet by oral route every day 40 MG - Active Sodium Fluoride 5000 Dry Mouth 1.1 % dental paste - Active tadalafil 10 mg tablet take 1 tablet by oral route every day 10 MG - Active Thera-Tabs M 27 mg iron-400 mcg tablet - Active thiamine HCl (vitamin B1) 100 mg tablet - Active tizanidine 4 mg tablet take 1 tablet by oral route every 24 hours as needed not to exceed 3 doses in 24 hours 4 MG - Active Advance Directives Directive Yes / No Effective Date File Name No Information Encounters Encounter Description Practice Location Reason(s) For Visit Diagnoses Date Provider Providers Copied on Encounter [facility], [address] [place] [address], [address] [place] [address], tel:[phone] [facility] Office No Information 2 Francisco Licona. [address] [place] [address], [address] [place] [address] , [place]. tel:[phone] [facility], [address] [place] [address], [address] [place] [address], tel:[phone] [facility] Office No Information 2 Francisco Licona. [address] [place] [address], [address] [place] [address] , . tel:[phone] Family History Family Member Type Diagnosis Age At Onset No Information Payers Payer name Insurance type Covered republican ID Authoriza tion(s) No Information Social History Type Description Quantity Date Captured Comments Sex Male Smoking Status No Information Chief Complaint And Reason For Visit No Information Reason For Referral Reason For Referral No Information History Of Present Illness Encounter Date Complaint History Of Prese nt Illness No Information Functional Status Date Functional Assessmen t No Information Instructions Date Instruction Additional Infor mation No Information Assessments Type Assessment Date No Information Patient Care Teams Name Effective Dates (start - stop) Status Members No Information
--- NOTE | 2025-02-26 08:16 | MHC.PC.OV ---
Vital Signs 02/26/25 08:19 Height 5 ft 11 in Weight 194 lb 8 oz BMI 27.1 BP 138/76 Blood Pressure Location Lt brachial Position Sitting Respiration 12 Pulse 63 Pulse Source Pulse Oximeter Temp 97.2 F Temp Source Oral Pulse Oximetry (%) 95 Oxygen Delivery Method Room Air Intake Visit Reasons: follow up Intake Note: ED [facility] joshi follow up Subcontract Administrator Required: No Allergies [id number] Reductase Inhibitor Adverse Reaction (Intermediate, Verified 02/26/25 08:22) LEG PAIN lamotrigine Adverse Reaction (Mild, Verified 02/26/25 08:30) Anxiety dapagliflozin (From [facility]) Adverse Reaction (Verified 02/26/25 08:22) frequent urination and painful urination Medication List - Last Reconciled 02/26/25 by Zeynep Plasencia, [employer]- amlodipine-benazepril 10-40 mg 1 cap PO BEDTIME atenolol 50 mg (1/2 x 100 mg) PO DAILY Dexcom G7 Sensor (blood-glucose sensor) Check blood sugar 4 times per day, change sensor every 10 days NS doxazosin 4 mg PO DAILY empagliflozin (Jardiance) 10 mg PO DAILY finasteride 5 mg PO DAILY gabapentin 600 mg PO BEDTIME gabapentin 300 mg PO BEDTIME gabapentin 100 mg PO TID 30 days insulin glargine (Basaglar KwikPen U-100 Insulin) 20 units (0.2 mL) subcut QPM metformin 1,000 mg PO BID miscellaneous medical supply 1 ea miscellaneous .qd pen needle, diabetic (Droplet Micron Pen Needle) Use to inject insulin with pen daily sertraline 50 mg PO DAILY trazodone 50 mg PO BEDTIME PRN varenicline tartrate 1 mg PO BID Tobacco use date assessed: 02/26/25 Fall risk assessment: No Falls in past year Last assessed Fall Risk: 02/26/25 Dental Screening Dental Screen Date: 02/26/25 Did you have a dental visit in the last 12 months?: Yes Did you have a dental problem in the last 6 months where you did not have access to dental care?: No Was dental information given to patient?: Patient has dentist HPI HPI Comments History of Present Illness Details 70 y/o M current tobacco user,neuropathy, BPH with chronic urinary retention, COPD, CAD (CT 11/2022), DM2 with complications, HTN, HLD,hx of hyperthyroid, Multiple lung nodules, microalbuminuria, CELESTINA not on CPAP, MDD s/p ventral hernia repair, knee surgery, Social: has a kitten, Kim; 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 Health Maintenance Lung Ca screening colon declined tdap admin today DM Eye 08/2023 cataract, no DM retinopathy Kayce mason Specialists: Optho thoracics Uro Counselor History of Present Illness - The patient is a 70-year-old male presenting with hospital discharge follow-up for chest pain. - Admitted for chest pain; differential included angina, embolism, and dissection. - Bradycardia in the 40s; sinus bradycardia on EKG, troponin evaluated. - CT angio noted L renal lesion; atelectasis considered at the left lower lobe. Cholelithiasis; CAD - Labs normal, including Troponin. Morphine x 1. DC home no meds or changes - Feels fine. No other episodes of anterior chest pain. This happened in fasting state; eating sausage egg Mcmuffin Qd which is new and took NSAID+benadryl prior to onset. Has since stopped this. - Biking QD. No chest pain. Other notes: Lamotrigne which was started for neuropathy and anxiety stopped; he reports uptick in anxiety. DOMONIQUE back to baseline w/o this med Wonders about Vyvnase for ADHD Review of Systems - Cardiovascular: Denies current chest pain. - Neurological: Denies any headaches, dizziness, or coordination issues; reports anxiety and ADHD. - Pulmonary: Denies shortness of breath and cough. - Gastrointestinal: Denies abdominal pain or gastrointestinal bleeding. - Endocrine: Reports stable weight; history of diabetes mellitus. - Musculoskeletal: Denies joint or muscle pain. - General: Reports previous episodes of fatigue. Physical Exam General: Well developed, well nourished, in no acute distress. Appears stated age. Head: Normocephalic, atraumatic. Eyes: Pupils are equal, round and reactive to light and accommodation. Conjunctivae are clear. Lungs: Clear to auscultation bilaterally. No rales, rhonchi or wheeze noted. Good air flow in all cormier. Heart: Regular rate and rhythm. No murmurs, click, rubs or gallops are noted. Abdomen: Bowel sounds present in all quadrants. The abdomen is soft, nontender, with no masses or organomegaly noted. No hernias are noted. Pulses: Peripheral pulses are equal and palpable bilaterally. Extremities: No clubbing, cyanosis nor edema is noted. Psych: Mood and affect appropriate Results - Labs: Troponin reduced from 10 to 8; glucose at 156. - Tests: EKG showed sinus bradycardia; CT angio suggestive of atelectasis, indeterminate renal lesion. - Diagnostics: Normal CBC, normal renal function, AST of 46. Discussion Notes We discussed the potential diagnoses and management options during this follow-up visit. I emphasized the importance of monitoring for symptoms such as chest pain and advised that if the patient suspects a coronary event, seeking immediate medical attention is vital. We discussed how aspirin could be utilized as an antiplatelet agent to potentially reduce thromboembolic risks, given no contraindicated history of gastrointestinal bleeding. Zetia was introduced as a possibility for managing cholesterol, which could help decrease future cardiovascular risk by lowering plaque deposition. We decided to prescribe Zetia and low-dose aspirin, considering the patient's history of arterial plaque and diabetes. Cause of his pain could be related to gallstones. I will perform further research regarding Vyvanse for ADHD management due to the possible cardiovascular implications. Regular follow-up and lab work were advised to assess cholesterol management and gather pertinent data. Patient was given time to ask questions. All questions were answered to their satisfaction. Assessment and Plan Start ASA and Zetia Monitor for recurrence Findings on CT image are longstanding; including the L renal lesion, US done 12/2024 and benign ED edu provided Consider gallstones as cause Cont all meds RTO 1 mo w/ labs for AWV I can review use of vyvance at next visit. Patient Instructions - Take aspirin daily with food to reduce blood clot risks. - Start Zetia daily for cholesterol management. - Return if chest pain or related symptoms worsen or reappear. - Follow up with lab work for cholesterol in the next month. - Schedule a physical for next month; follow up on ADHD treatment options. - Maintain current diabetes care and lifestyle modifications for overall health. Consent Patient was informed and verbally consented to the use of an ambient scribe for clinic note documentation during this visit. Total time spent caring for the patient today was 40 minutes. This includes time spent before the visit reviewing the chart, time spent during the visit, and time spent after the visit on documentation, reviewing laboratory results, diagnostic imaging, medications, performing a medically necessary evaluation, counseling on diagnoses, care coordination, ordering appropriate tests, ordering appropriate medications, review of tests performed by other providers, reporting test results with the patient, communication with other healthcare providers. [facility] Medical History (Updated 02/26/25 @ 08:47 [facility] BPH (benign prostatic hyperplasia) Colonoscopy refused Depression DM type 2 (diabetes mellitus, type 2) HTN (hypertension) Kidney disease Murmur Neuropathy Nicotine dependence, cigarettes, uncomplicated Sleep apnea Thyroid disorder Surgical History (Updated 12/06/24 @ 10:01 by [facility] History of arthroscopic knee surgery History of dental surgery History of umbilical hernia repair Status post repair of ventral hernia Family History Father No problems noted. Mother Hypertension Diabetes Social History Household Members Other:: , retired, well balanced, Housing: House Are you a primary care transport nurse to a significant other at home: No Do you presently have visiting nurse or other home services: No Alcohol intake: never Patient Tobacco Use Status: Current everyday Tobacco user Tobacco use type: Cigarette Cigarettes Per Day: 10 Years Smoked: (current smoker - onset 12yo, 1-2ppd x 55yrs, now 1/2ppd - 70pyh) e-Cigarette/Vaping Use: Never Used Second Hand Smoke Exposure: No service: Yes Current occupational status: retired Cognitive needs: No Hearing needs: No Vision needs: Yes Questionnaire PHQ-9 Over the last 2 weeks, how often have you been bothered by any of the following problems? 1. Little interest or pleasure in doing things: not at all 2. Feeling down, depressed, or hopeless: not at all 3. Trouble falling or staying asleep, or sleeping too much: not at all 4. Feeling tired or having little energy: not at all 5. Poor appetite or overeating: not at all 6. Feeling bad about yourself - or that you are a failure or have let yourself or your family down: not at all 7. Trouble concentrating on things, such as reading the newspaper or watching television: not at all 8. Moving or speaking so slowly that other people could have noticed. Or the opposite - being so fidgety or restless that you have been moving around a lot more than usual: not at all 9. Thoughts that you would be better off or of hurting yourself in some way: not at all Total score: 0 Depression Screening Interpretation: Negative Depression Screening Done: Yes 22007 - PHQ-9 Billing: Yes Source: Developed by Drs. Reji Gay, Melisas Bacon, Kiko De La Torre and colleagues, with an educational feliciano from [employer]. Thrive Questionnaire Date Thrive assessed: 02/26/25 I am a: Patient What is your living situation today?: I have a steady place to live Within the past 12 months, did the food you bought not last and you didn't have the money to get more?: Sometimes True Within the past 12 months, did you worry whether your food would run out before you got money to buy more?: Sometimes True Do you have trouble paying for medicines?: No Do you have trouble getting transportation to medical appointments?: No Do you have trouble paying your heating and electricity bill?: No Do you have trouble taking care of your child, family member or friend?: No Do you have trouble with day-to-day activities such as bathing, preparing meals, shopping, managing finances, etc.?: No Are you currently unemployed and looking for a job?: No Are you interested in more education?: No Please select the resources that you would like help with: None Currently or been in a relationship where the following occur: No concerns reported THRIVE Score: 2 DOMONIQUE-7 AMB Questionnaire DOMONIQUE-7 Date DOMONIQUE - 7 assessed: 02/26/25 Feeling nervous, anxious, or on edge: 0 = Not at all Not being able to stop or control worryin = Not at all Worrying too much about different things: 0 = Not at all Trouble relaxin = Not at all Being so restless that it is hard to sit still: 0 = Not at all Becoming easily annoyed or irritable: 0 = Not at all Feeling afraid as if something awful might happen: 0 = Not at all Total DOMONIQUE-7 score (0-4 normal; 5-9 mild; 10-14 moderate; 15-21 severe): 0 Source: Developed by Drs. Reji Gay, Melissa Bacon, Kiko De La Torre and colleagues, with an educational feliciano from [employer]. DOMONIQUE-7 Assessment Billing DOMONIQUE-7 Assessment Tool: DOMONIQUE-7 Assessment 48444 Physical exam (Primary Care) Tobacco/Smoking Status: Tobacco use Status Tobacco use date assessed 12/06/24 02/02/25 07:38 Patient Tobacco Use Status Current everyday Tobacco 02/02/25 07:38 Tobacco use type Cigarette 02/02/25 07:38 e-Cigarette/Vaping Use Never Used 02/02/25 07:38 Depression Screening Interpretation: Negative Thrive Assessment: Date of Thrive Assessment Date Thrive assessed 10/19/24 02/02/25 07:38 Currently or been in a relationship where the following occur: No concerns reported Coding Level of Care Code Est Pt Level 5 (30055) Complex EM visit Add On G2211 Diagnoses Hospital discharge follow-up Z09 Calculus of gallbladder without cholecystitis without obstruction K80.20 Biliary obstruction: without biliary obstruction Cholecystitis presence: without cholecystitis Cholelithiasis location: gallbladder 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 Mixed hyperlipidemia E78.2 Hyperlipidemia type: mixed hyperlipidemia Coronary artery calcification I25.10; I25.84 Microalbuminuria R80.9 BPH (benign prostatic hyperplasia) N40.0 Additional Codes DOMONIQUE-7 Assessment Billing - DOMONIQUE-7 Assessment Tool: DOMONIQUE-7 Assessment 24763 ([id number]) PHQ-9 - 64060 - PHQ-9 Billing: Yes ([id number]) Assessment & Plan Assessment & Plan (1) Hospital discharge follow-up: Code(s): Z09 - Encounter for follow-up examination after completed treatment for conditions other than malignant neoplasm (2) Cholelithiases: Code(s): K80.20 - Calculus of gallbladder without cholecystitis without obstruction Category: Medical Qualifiers: Biliary obstruction: without biliary obstruction Cholecystitis presence: without cholecystitis Cholelithiasis location: gallbladder Qualified Code(s): K80.20 - Calculus of gallbladder without cholecystitis without obstruction (3) 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; CT scan 02/09/25 [facility] Code(s): Q89.1 - Congenital malformations of adrenal gland Category: Medical (4) Hyperlipidemia: Comment: intolerant to statins, 02/2025 start zetia Code(s): E78.5 - Hyperlipidemia, unspecified Category: Medical Qualifiers: Hyperlipidemia type: mixed hyperlipidemia Qualified Code(s): E78.2 - Mixed hyperlipidemia (5) Coronary artery calcification: Comment: CT scan 02/2025 Code(s): I25.10 - Atherosclerotic heart disease of [place] coronary artery without angina pectoris; I25.84 - Coronary atherosclerosis due to calcified coronary lesion Category: Medical (6) Microalbuminuria: Comment: on ACEI and SGLT Code(s): R80.9 - Proteinuria, unspecified Category: Medical (7) BPH (benign prostatic hyperplasia): Comment: PSA 4.7 Code(s): N40.0 - Benign prostatic hyperplasia without lower urinary tract symptoms Category: Medical Plan . Orders: Orders Hemoglobin A1c Today E78.2 - Mixed hyperlipidemia, I25.10 - Atherosclerotic heart disease of [place] coronary artery without angina pectoris, I25.84 - Coronary atherosclerosis due to calcified coronary lesion, R80.9 - Proteinuria, unspecified Lipid Panel Today E78.2 - Mixed hyperlipidemia, I25.10 - Atherosclerotic heart disease of [place] coronary artery without angina pectoris, I25.84 - Coronary atherosclerosis due to calcified coronary lesion, R80.9 - Proteinuria, unspecified Prostate Specific Antigen Scr Today E78.2 - Mixed hyperlipidemia, I25.10 - Atherosclerotic heart disease of [place] coronary artery without angina pectoris, I25.84 - Coronary atherosclerosis due to calcified coronary lesion, N40.0 - Benign prostatic hyperplasia without lower urinary tract symptoms, R80.9 - Proteinuria, unspecified Microalbumin, Random (w Creat) Today E78.2 - Mixed hyperlipidemia, I25.10 - Atherosclerotic heart disease of [place] coronary artery without angina pectoris, I25.84 - Coronary atherosclerosis due to calcified coronary lesion, R80.9 - Proteinuria, unspecified Medications: New ezetimibe (Zetia) 10 mg PO DAILY 90 tabs 2RF aspirin (Adult Low Dose Aspirin) 81 mg PO DAILY 90 tabs 2RF
[2025-02-26 08:19] VITALS: BP 138/76; PULSE 63; RESP 12; TEMP 36.2; O2SAT 95; BMI 27.1
== END 2025-02-26 08:39 | disposition home or self-care (01) ==
LOC: HO.HMCFM 08:09
PROVIDERS: PCP Nurse Practitioner Family; Visit Provider Nurse Practitioner Family
DX: K80.20 Calculus of gallbladder without cholecystitis without obstruction (principal); E78.2 Mixed hyperlipidemia; Z09 Encounter for follow-up examination after completed treatment for conditions other than malignant neoplasm; Q89.1 Congenital malformations of adrenal gland; I25.10 Atherosclerotic heart disease of native coronary artery without angina pectoris; I25.84 Coronary atherosclerosis due to calcified coronary lesion; R80.9 Proteinuria, unspecified; N40.0 Benign prostatic hyperplasia without lower urinary tract symptoms

== ENCOUNTER → 2025-02-26 08:08 | Outpatient (BNVA) | payer MEDICARE, SELFPAY | PROVIDERS: PCP Nurse Practitioner Family; Visit Provider Nurse Practitioner Family | DX: E11.40 Type 2 diabetes mellitus with diabetic neuropathy, unspecified (principal); I10 Essential (primary) hypertension; J44.9 Chronic obstructive pulmonary disease, unspecified; I25.10 Atherosclerotic heart disease of native coronary artery without angina pectoris; E03.9 Hypothyroidism, unspecified; G47.33 Obstructive sleep apnea (adult) (pediatric); N40.1 Benign prostatic hyperplasia with lower urinary tract symptoms; R33.8 Other retention of urine; K80.20 Calculus of gallbladder without cholecystitis without obstruction; Q89.1 Congenital malformations of adrenal gland; E78.2 Mixed hyperlipidemia; I25.84 Coronary atherosclerosis due to calcified coronary lesion; R80.9 Proteinuria, unspecified; Z09 Encounter for follow-up examination after completed treatment for conditions other than malignant neoplasm; Z99.89 Dependence on other enabling machines and devices | CPT/HCPCS: 96127; 99212 ==

== ENCOUNTER 2025-04-03 08:22 | Outpatient (REF) | payer MEDICARE, SELFPAY ==
[2025-04-03 11:53] LABS: Hemoglobin A1C 183.7726 umol/L; Total Hemoglobin (HGBA1C) 3927.7381 umol/L
[2025-04-03 13:19] LABS: Cholesterol 151 mg/dL (<200); HDL Cholesterol 37 mg/dL (>40); Triglycerides 98 mg/dL (<150)
[2025-04-03 14:20] LABS: Microalbum/Creatinine Ratio Ur 301.6 ug/mg cr (<30)
== END 2025-04-03 08:23 | disposition home or self-care (01) ==
LOC: HO.WFDLDS 08:22
PROVIDERS: Visit Provider Nurse Practitioner Family
DX: I25.10 Atherosclerotic heart disease of native coronary artery without angina pectoris (principal); I25.84 Coronary atherosclerosis due to calcified coronary lesion; N40.0 Benign prostatic hyperplasia without lower urinary tract symptoms; E78.2 Mixed hyperlipidemia; R80.9 Proteinuria, unspecified; Z12.5 Encounter for screening for malignant neoplasm of prostate; Z13.1 Encounter for screening for diabetes mellitus
CPT/HCPCS: 36415; 80061; 82043; 82570; 83036; 84153

== ENCOUNTER 2025-04-09 09:58 | Outpatient (REF) | payer MEDICARE, SELFPAY | END 2025-04-09 09:59 | disposition home or self-care (01) | LOC: HO.WFDLDS 09:58 | PROVIDERS: PCP Nurse Practitioner Family; Visit Provider Nurse Practitioner Family | DX: Z00.00 Encounter for general adult medical examination without abnormal findings (principal); F41.1 Generalized anxiety disorder; F33.1 Major depressive disorder, recurrent, moderate; N40.1 Benign prostatic hyperplasia with lower urinary tract symptoms; R35.1 Nocturia; D49.2 Neoplasm of unspecified behavior of bone, soft tissue, and skin; I15.2 Hypertension secondary to endocrine disorders; E78.2 Mixed hyperlipidemia; E11.40 Type 2 diabetes mellitus with diabetic neuropathy, unspecified; J43.1 Panlobular emphysema; G47.33 Obstructive sleep apnea (adult) (pediatric); I25.10 Atherosclerotic heart disease of native coronary artery without angina pectoris; I25.84 Coronary atherosclerosis due to calcified coronary lesion; F10.21 Alcohol dependence, in remission; R91.8 Other nonspecific abnormal finding of lung field; R80.9 Proteinuria, unspecified; F17.210 Nicotine dependence, cigarettes, uncomplicated; Z71.89 Other specified counseling; Z53.20 Procedure and treatment not carried out because of patient's decision for unspecified reasons; Z28.21 Immunization not carried out because of patient refusal; Z79.4 Long term (current) use of insulin; Z79.84 Long term (current) use of oral hypoglycemic drugs; Z79.82 Long term (current) use of aspirin; Z79.899 Other long term (current) drug therapy | CPT/HCPCS: 93005; 96127; 99212; 99497 ==

== ENCOUNTER 2025-04-09 09:58 | Outpatient (AMB) | payer MEDICARE, SELFPAY ==
--- OUTSIDE RECORDS SUMMARY | 2022-04-08 09:45 | XMS_ITS | Continuity of Care Document ---
Author Organization [facility] Address [address] [place] [address] Phone Care Team Providers Care Knee Bolter Name Role Phone FaberLivan guerra MD Unavailable Unavailable Allergies, Adverse Reactions, [...] Diagnoses Date Provider Providers Copied on Encounter [facility], [address] [place] [address], [address] [place] [address], tel:[phone] [facility] Office No Information 2 Francisco Licona. [address] [place] [address], [address] [place] [address] , [place]. tel:[phone] [facility], [address] [place] [address], [address] [place] [address], tel:[phone] [facility] Office No Information 2 Francisco Licona. [address] [place] [address], [address] [place] [address] , . tel:[phone] Family History Family Member Type Diagnosis Age At Onset No Information Payers Payer name Insurance type Covered alliance party ID Authoriza tion(s) No Information Social History [...]
--- NOTE | 2025-04-09 10:06 | A.OFFVIS_ITS ---
Intake Vital Signs 04/09/25 10:12 Height 5 ft 11 in Weight 195 lb 6 oz BMI 27.2 BP 126/66 Blood Pressure Location Rt brachial Position Sitting Respiration 12 Pulse 66 Pulse Source Pulse Oximeter Temp 97.1 F Temp Source Oral Pulse Oximetry (%) 96 Oxygen Delivery Method Room Air Intake Visit Reasons: Physical Intake Note: AWV. Organic Search Lead Required: No Allergies Ivngiiv-BDT-SpX Reductase Inhibitor Adverse Reaction (Intermediate, Verified 04/09/25 10:40) LEG PAIN lamotrigine Adverse Reaction (Mild, Verified 04/09/25 10:40) Anxiety dapagliflozin (From [facility]) Adverse Reaction (Verified 04/09/25 10:40) frequent urination and painful urination Medication List - Last Reconciled 04/09/25 by Zeynep Plasencia, [facility]- amlodipine-benazepril 10-40 mg 1 cap PO BEDTIME aspirin (Adult Low Dose Aspirin) 81 mg PO DAILY atenolol 50 mg (1/2 x 100 mg) PO DAILY Dexcom G7 Sensor (blood-glucose sensor) Check blood sugar 4 times per day, change sensor every 10 days NS doxazosin 4 mg PO DAILY empagliflozin (Jardiance) 10 mg PO DAILY ezetimibe (Zetia) 10 mg PO DAILY finasteride 5 mg PO DAILY gabapentin 600 mg PO BEDTIME gabapentin 300 mg PO BEDTIME gabapentin 100 mg PO TID 30 days insulin glargine (Basaglar KwikPen U-100 Insulin) 20 units (0.2 mL) subcut QPM metformin 1,000 mg PO BID miscellaneous medical supply 1 ea miscellaneous .qd pen needle, diabetic (Droplet Micron Pen Needle) Use to inject insulin with pen daily sertraline 50 mg PO DAILY trazodone 50 mg PO BEDTIME PRN varenicline tartrate 1 mg PO BID Do you need a note to return to daycare/school/sports/work: No HPI HPI Comments History of Present Illness Details Here today for AWV. The Medicare Annual Wellness Visit (AWV) is a yearly appointment with a health professional to identify health risks and help reduce them and to create or update a personalized prevention plan. During a Medicare AWV, health professionals should also review any current opioid prescriptions, detect any cognitive impairment, and establish or update medical and family history. 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 Has a dtr who is involved. Bought home in [place], living there w/ Dtr and 20 y/o Granddtr. Does not drive. [employer] for his appts. Health Maintenance: See scanned preventative medicine assessment with personalized health plan and screening schedule. Lung Ca screening 2024 colon declined Vaccines: tdap 2024, Flu declined DM Eye 08/2023 cataract, no DM retinopathy bilat, Kayce Rucker; 2024 in [place] * AAA screen: NA EKG: done today Sinus Alan [place] of Care: Optho thoracics Uro - [place] Pulm/Sleep Med [facility] Counselor Derm Visual Acuity: glasses , Last exam 2024, report requested Hearing Screening: no issues ACP: HCP Dtr; does not have will or ACP; MOLST reviewed and provided today Dietary/Nutrition/Exercise Edu provided: Y During the course of the visit the patient was educated and counseled about appropriate screening and preventative services. Patient instructions were provided to the patient in written or electronic format. I have reviewed and verified the above information. History of Present Illness The patient is a 70-year-old male presenting with an annual Medicare wellness visit and urinary tract infection symptoms. Chronic Obstructive Pulmonary Disease (COPD): - Managed without medication; stable. Type 2 Diabetes Mellitus: - Controlled with CGM and Jardiance. Sli ght A1c increase, now 6.4. Benign Prostatic Hyperplasia (BPH) with chronic urinary retention: - Uses finasteride, dissatisfied with cu rrent results. - Refer to Uro in [place] Coronary Artery Disease: - Medications: aspirin, Zetia. - Informed about medication contraindica tions (vyvanse) Hypertension: - Managed with amlodipine, benazepril, a tenolol. Hyperlipidemia: - On Zetia; fluctuating cholesterol. Anxiety and Depression: - Medications: sertraline, trazodone (ir regular use). - Symptoms uncontrolled; psychiatric ref erral discussed. - [facility]. Cont w/ counselo r. Neuropathy: - Treated with gabapentin; Obstructive Sleep Apnea: - No CPAP due to intolerance. 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 Microalbuminuria: - Persistent despite diabetes treatment. - On ACIE Recent Urinary Tract Infection (UTI) symptoms: - Painful urination; likely Jardiance-re lated. - Past UTIs linked to medications Lsat 2 023, tx w/ cipro. Social History - Initiated plans for increased family c ontact; purchased a new house with daughter. - Consumes apple pies regularly; aware o f dietary sugar impact. - Rides a bicycle for transportation. - Lives independently but guidance avail able from daughter and granddaughter. - Pets: Cat named Kim, engages in int eractive play. Health Maintenance - Blood pressure managed with current wi dications for hypertension. - Cholesterol management in place with Z etia despite increased levels. - Annual diabetes control with A1c measu rement, recent increase discussed. - Engaged in lung cancer screening; stil l smoking. - Declined flu and pneumococcal vaccines . - Regular physical activity with bicycle riding. - Sobriety discussed, 18 years alcohol-f ree. Review of Systems - Constitutional: Denies weight loss, fe kana - Cardiovascular: Denies chest pain, wea kness - Respiratory: Reports stable breathing; Denies exacerbations for COPD - Gastrointestinal: Denies abdominal jc n, nausea, vomiting - Genitourinary: Reports painful urinati on - Psychiatric: Reports anxiety and depre ssion symptoms - Skin has several moles; not active w/ derm Physical Exam General: Well developed, well nourished, in no acute distress. Appears stated age. Head: Normocephalic, atraumatic. Eyes: Pupils are equal, round and reactive to light and accommodation. Conjunctivae are clear. Scleras nonicteric bilat. Vision grossly normal. Ears: TMs clear AU, EACS WNL Nose: Patent, without discharge. Neck: No carotid bruit bilat. Supple, no adenopathy or thyromegaly. Breast: Edu on SBE Lungs: Clear to auscultation bilaterally. No rales, rhonchi or wheeze noted. Good air flow in all cormier. Heart: Regular rate and rhythm. No murmurs, click, rubs or gallops are noted. Abdomen: Bowel sounds present in all quadrants. The abdomen is soft, nontender, with no masses or organomegaly noted. No hernias are noted. : Deferred. Reviewed NHUNG & recommendations Pulses: Peripheral pulses are equal and palpable bilaterally. Extremities: No clubbing, cyanosis nor edema is noted. Neurologic: Gait and station normal. Cranial Nerves 2-12 intact. Motor strength grossly symmetrical and intact. No sensory loss. Balance normal. + peripheral nueropathy Skin: No rashes, ulcers, or lesions noted. Turgor is good. Skin color is good. Hair and nails are without abnormalities. Numerous moles on back, ? BCC L sh oulder posterior Psych: Normal eye contact, affect and mood appropriate, and normal interactions. Patient is alert and appropriate to context. Results - Labs: HbA1c increased from 5.8 to 6.4; LDL increased to 95 from 67; HDL unchanged. - Tests: Microalbuminuria persistent torie pite treatment strategies. - Diagnostics: Normal EKG findings. Discussion Notes During the visit, we discussed the management of the patient's multiple chronic conditions. For the recent UTI symptoms, I addressed the potential link to Jardiance and recommended monitoring fluid intake and urinary sugar levels. We discussed the contraindications of Vyvanse regarding coronary artery disease and suggested psychiatric consultation for the ongoing issues with anxiety, depression. The patient expressed interest in Inspire therapy for sleep apnea and urology referral for BPH management. I emphasized the importance of lifestyle modifications, including adjusting dietary sugar intake. Antibiotic treatment for UTI symptoms was proposed, and labs were reviewed, noting an increase in A1c and LDL. The flu and pneumococcal vaccines were declined by the patient. Future follow-ups were outlined for specialty consultations, and the importance of health maintenance was reinforced. Patient was given time to ask questions. All questions were answered to their satisfaction. Assessment and Plan 1. Chronic Obstructive Pulmonary Disease (COPD) - Maintain current management as stable. 2. Type 2 Diabetes Mellitus - Continue Jardiance, CGM; monitor A1c. 3. Benign Prostatic Hyperplasia (BPH) wi th chronic urinary retention - Urology referral initiated. 4. Coronary Artery Disease - Continue aspirin, Zetia; defer Vyvanse . 5. Hypertension - Maintain present antihypertensive jennifer men. 6. Hyperlipidemia - Monitor lipid profile; reinforce dieta ry adjustments. 7. Anxiety and Depression - Psychiatric referral agreed; consider sertraline adjustment. 8. Neuropathy - Gabapentin continued; evaluate respons e. 9. Obstructive Sleep Apnea - Inspire therapy candidate exploration started. 10. History of Ethanol Abuse in [facility] - Support continued sobriety. 11. Microalbuminuria - Ongoing renal protection with Jardianc e, benazepril. 12. Urinary Tract Infection (UTI) sympt oms - Begin Cipro; await culture results. 13. Moles - refer to [facility] [place] Patient Instructions - Take prescribed antibiotics as directe d. - Submit urine sample for testing before leaving. - Reduce apple pie consumption and monit or sugar intake. - Follow up with urology and psychiatric consultations as scheduled. - Contact me if UTI symptoms worsen or p ersist after treatment. - RTO 6 mo for routine fu, labs 1 week b efore, sooner as needed. Consent Patient was informed and verbally consented to the use of an ambient scribe for clinic note documentation during this visit. An additional 30 minutes was spent addressing the problem(s) noted at todays visit. This includes time spent before the visit reviewing the chart, time spent during the visit, and time spent after the visit on documentation reviewing laboratory results, diagnostic imaging, medications, performing a medically necessary evaluation, counseling on diagnoses, care coordination, ordering appropriate tests, ordering appropriate medications, review of tests performed by other providers, reporting test results with the patient, communication with other healthcare providers. [facility] Medical History (Updated 04/09/25 @ 15:22 by Zeynep Plasencia, [facility]) BPH (benign prostatic hyperplasia) Colonoscopy refused Depression DM type 2 (diabetes mellitus, type 2) HTN (hypertension) Kidney disease Murmur Neuropathy Nicotine dependence, cigarettes, uncomplicated Sleep apnea Thyroid disorder Surgical History (Updated 12/06/24 @ 10:01 by Zeynep Plasencia [facility] History of arthroscopic knee surgery History of dental surgery History of umbilical hernia repair Status post repair of ventral hernia Family History Father No problems noted. Mother Hypertension Diabetes Social History Household Members Other:: , retired, well balanced, Housing: House Are you a primary school childcare attendant to a significant other at home: No Do you presently have visiting nurse or other home services: No Alcohol intake: never Patient Tobacco Use Status: Current everyday Tobacco user Tobacco use type: Cigarette Cigarettes Per Day: 10 Years Smoked: (current smoker - onset 12yo, 1-2ppd x 57yrs, now 1/2ppd - 70pyh) e-Cigarette/Vaping Use: Never Used Second Hand Smoke Exposure: No service: Yes Current occupational status: retired Cognitive needs: No Hearing needs: No Vision needs: Yes Questionnaire Medicare Wellness Checkup What [age] What gender do you identify with?: male During the past 4 weeks, how much have you been bothered by emotional problems such as feeling anxious, depressed, irritable, sad or downhearted, and blue?: slightly During the past 4 weeks, has your physical & emotional health limited your social activities with family, friends, neighbors, or groups?: slightly During the past 4 weeks, how much bodily pain have you generally had?: no pain During the past 4 weeks, was someone available to help you if you needed & wanted help?: yes, as much as I wanted During the past 4 weeks, what was the hardest physical activity you could do for at least 2 minutes?: moderate Can you get to places out of walking distance without help? (For eg., can you travel alone on buses, taxis or drive your car?): Yes Can you go shopping for groceries or clothes without someone's help?: Yes Can you prepare your own meals?: Yes Can you do your housework without help?: Yes Because of any health problems, do you need the help of another person with your personal care needs such as eating, bathing, dressing or getting around the house?: No Can you handle your own money without help?: Yes During the past 4 weeks, how would you rate your health in general?: very good During the past 4 weeks how have things been going for you?: pretty well Are you having difficulties driving your car?: not applicable, I don't use a car Do you always fasten your seat belt when you are in a car?: yes, usually During past 4 weeks, have you been bothered by the following: never: Falling or dizzy when standing up, Sexual problems?, Trouble eating well?, Teeth or denture problems?, Problems using the telephone? and Tiredness or fatigue? Have you fallen 2 or more times in the past year?: No Are you afraid of falling?: No Are you a smoker?: yes, but I'm not ready to quit During the past 4 weeks, how many drinks of wine, beer, or other alcoholic beverages did you have?: no alcohol at all Do you exercise for about 20 minutes 3 or more times a week?: yes, all the time Have you been given information to help with the following?: no: Hazards in your house that might hurt you? and no: Keeping track of your medications? How often do you have trouble taking medicines the way you have been told to take them?: I always take medicine as prescribed How confident are you that you can control & manage most of your health problems?: very confident What is your race?: White Activity of Daily Living Bathing - sponge bath, tub bath or shower: receives no assistance (gets in/out by self, if usual bathing means Dressing - getting clothes from closets & drawers, including inner/outer garments & fasteners.: gets clothes & gets completely dressed without help Toileting - going to the 'toilet room' for urine/bowel elimination & cleaning self/arranging clothes: goes to toilet room, cleans self, arranges clothes without help Transfer: moves in & out of bed and chair without help (may use support object) Continence: controls urination/bowel movements completely by self Feeding: feeds self without help Total Score: 0 Information obtained from: patient Using telephone: independent Traveling: independent Shopping: independent Preparing meals: independent Housework: independent Taking medicine: independent Managing money: independent PHQ-9 Over the last 2 weeks, how often have you been bothered by any of the following problems? 1. Little interest or pleasure in doing things: not at all 2. Feeling down, depressed, or hopeless: not at all 3. Trouble falling or staying asleep, or sleeping too much: not at all 4. Feeling tired or having little energy: not at all 5. Poor appetite or overeating: not at all 6. Feeling bad about yourself - or that you are a failure or have let yourself or your family down: not at all 7. Trouble concentrating on things, such as reading the newspaper or watching television: not at all 8. Moving or speaking so slowly that other people could have noticed. Or the opposite - being so fidgety or restless that you have been moving around a lot more than usual: not at all 9. Thoughts that you would be better off or of hurting yourself in some way: not at all Total score: 0 Depression Screening Interpretation: Negative Depression Screening Done: Yes 79750 - PHQ-9 Billing: Yes Source: Developed by Drs. Reji Gay, Melissa Bacon, Kiko De La Torre and colleagues, with an educational feliciano from [employer]. Physical Exam Vital Signs: Last Vital Signs Temp 97.1 F 04/09/25 10:12 Pulse 66 04/09/25 10:12 Resp 12 04/09/25 10:12 BP 126/66 04/09/25 10:12 Pulse Ox 96 04/09/25 10:12 Oxygen Delivery Method Room Air 04/09/25 10:12 BMI result Body Mass Index 27.2 Office Procedures EKG [id number], Complete Vision Screening Right Eye: 20/25 Left Eye: 20/40 Bilateral: 20/25 Color: Pass Corrected: Pass (wearing glasses) 98929 - Vision Screening Results Reviewed Results Reviewed: Laboratory 04/03/25 Result Units Range Interpretation Provider Comments Estimated Average Glucose 137 mg/dL Hemoglobin A1c Percent 6.4 % (<6.0) High Triglycerides Level 98 mg/dL (<150) Cholesterol Level 151 mg/dL (<200) LDL Cholesterol, Calculated 95 mg/dL (<100) HDL Cholesterol 37 mg/dL (>40) Low Prostate Specific Antigen Screen 1.49 ng/mL (<0.05-4.0) Urine Creatinine 95.15 mg/dL Urine Microalbumin 287.0 mg/L Urine Microalbumin/Creatinine Ratio 301.6 ug/mg cr (<30) High Assessment & Plan Assessment & Plan (1) Encounter for subsequent annual wellness visit (AWV) in Medicare patient: Onset Date: ~04/09/25 Code(s): Z00.00 - Encounter for general adult medical examination without abnormal findings (2) MDD (major depressive disorder), recurrent episode: Code(s): F33.9 - Major depressive disorder, recurrent, unspecified Qualifiers: Major depression episode severity: moderate Qualified Code(s): F33.1 - Major depressive disorder, recurrent, moderate (3) DOMONIQUE (generalized anxiety disorder): Code(s): F41.1 - Generalized anxiety disorder (4) BPH (benign prostatic hyperplasia): Comment: PSA 4.7 Code(s): N40.0 - Benign prostatic hyperplasia without lower urinary tract symptoms Qualifiers: Lower urinary tract symptom presence: symptoms present Lower urinary tract symptom detail: nocturia Qualified Code(s): N40.1 - Benign prostatic hyperplasia with lower urinary tract symptoms; R35.1 - Nocturia (5) Atypical squamoproliferative skin lesion: Code(s): D49.2 - Neoplasm of unspecified behavior of bone, soft tissue, and skin (6) HTN (hypertension): Code(s): I10 - Essential (primary) hypertension Qualifiers: Hypertension type: secondary to endocrine disorders Qualified Code(s): I15.2 - Hypertension secondary to endocrine disorders (7) Hyperlipidemia: Comment: intolerant to statins, 02/2025 start zetia Code(s): E78.5 - Hyperlipidemia, unspecified Qualifiers: Hyperlipidemia type: mixed hyperlipidemia Qualified Code(s): E78.2 - Mixed hyperlipidemia (8) DM type 2 causing complication: Comment: Farxiga caused polyuria Code(s): E11.8 - Type 2 diabetes mellitus with unspecified complications (9) ACP (advance care planning): Code(s): Z71.89 - Other specified counseling (10) Sleep apnea: Comment: cannot use Cpap Code(s): G47.30 - Sleep apnea, unspecified Qualifiers: Sleep apnea type: obstructive Qualified Code(s): G47.33 - Obstructive sleep apnea (adult) (pediatric) (11) Alcoholism in remission: Code(s): F10.21 - Alcohol dependence, in remission (12) Coronary artery calcification: Comment: CT scan 02/2025 Code(s): I25.10 - Atherosclerotic heart disease of [place] coronary artery without angina pectoris; I25.84 - Coronary atherosclerosis due to calcified coronary lesion (13) Colonoscopy refused: Comment: 09/2021, 08/03 Code(s): Z53.20 - Procedure and treatment not carried out because of patient's decision for unspecified reasons (14) Microalbuminuria: Comment: on ACEI and SGLT Code(s): R80.9 - Proteinuria, unspecified (15) Neuropathy: Code(s): G62.9 - Polyneuropathy, unspecified (16) COPD (chronic obstructive pulmonary disease): Comment: pt declined inhalers Code(s): J44.9 - Chronic obstructive pulmonary disease, unspecified Qualifiers: COPD type: emphysema Emphysema type: panlobular Qualified Code(s): J43.1 - Panlobular emphysema (17) Lung nodule, multiple: Comment: CT scan 08/03, unchanged since 2015, annual CT SCAN 12/2024 NO CHANGE REPEAT 1 YEAR Code(s): R91.8 - Other nonspecific abnormal finding of lung field (18) Nicotine dependence, cigarettes, uncomplicated: Comment: (current smoker - onset 12yo, 1-2ppd x 57yrs, now 1/2ppd - 70pyh) Smoking Cessation How to Quit There are a lot of ways to quit smoking and many resources to help you. Family members, friends, and co-workers may be supportive or encouraging, but to be successful the desire and commitment to quit must be your own. Most people who have been able to successfully quit smoking made at least one unsuccessful attempt in the past. Try not to view past attempts to quit as failures, but rather as learning experiences. Stopping smoking or using smokeless tobacco is difficult, but anyone can do it. Know the symptoms to expect when you stop. Common symptoms include: ? An intense craving for nicotine ? Anxiety, tension, restlessness, frustration, or impatience ? Difficulty concentrating ? Drowsiness or trouble sleeping, as well as bad dreams and nightmares ? Drowsiness and trouble sleeping ? Headaches ? Increased appetite and weight gain ? Irritability or depression How severe your symptoms are depends on how long you smoked and how many cigarettes you smoked each day. Feel ready to quit? ? First and foremost, set a quit date and quit completely on that day. Before your quit date, you may begin reducing your cigarette use. But remember, there is no safe level of cigarette smoking. ? List the reasons why you want to quit. Include both short- and long-term b enefits. ? Identify the times you are most likely to smoke. For example, do you tend to smoke when feeling stressed or down? When out at night with friends? While drinking coffee or alcohol? When bored? While driving? Right after a meal or sex? During a work break? While watching TV or playing cards? When you are with other smokers? ? Let all of your friends, family, and co-workers know of your plan to stop smoking and your quit date. Just being aware that they know what you're going through can be helpful, especially when you are grumpy. ? Get rid of all your cigarettes just before the quit date, and clean out anything that smells like smoke, such as clothes and furniture. Make a plan about what you will do instead of smoking at those times when you are most likely to smoke. ? Be as specific as possible. For example, drink tea instead of coffee -- tea may not trigger the desire for a cigarette. Or, take a walk when you feel stressed. ? Remove ashtrays and cigarettes from the car. Place pretzels or hard candies there instead. Pretend-smoke with a straw. ? Find activities that focus your hands and mind but are not taxing or fattening. Computer games, solitaire, knitting, sewing, and crossword puzzles may help. ? If you normally smoke after eating, find other ways to end a meal. Play a tape or CD, eat a piece of fruit, get up and make a phone call, or take a walk (a good distraction that also mijares calories). Make other changes in your lifestyle. ? Change your daily schedule and habits. Eat at different times or eat several small meals instead of three large ones. Sit in a different chair or even a different room. ? Satisfy your oral habits by eating celery or other low-calorie snack, chewing sugarless gum, or sucking on a cinnamon stick. ? Go to public places and restaurants where smoking is prohibited or restricted. ? Eat regular meals and don't eat too much candy or sweet things. ? Get more exercise. Take walks or ride a bike. Exercise helps relieve the urge to smoke. Set short-term quitting goals and reward yourself when you meet them. ? Every day, put the money you normally spend on cigarettes in a jar. Then buy something pleasurable after a period of time. ? Try not to think about all the days ahead you will need to avoid smoking. Take it one day at a time. ? Even one puff or one cigarette will make your desire for more cigarettes even stronger. However, it is normal to make mistakes. So even if you have one cigarette, you don't need to take the next one. Other tips to help you quit smoking and stick to it: ? Enroll in a smoking cessation program (hospitals, health departments, community centers, and work sites often offer programs). Learn about self-hypnosis or other techniques. ? Ask your health care provider about prescription medications that are safe and appropriate for you. ? Find out about nicotine patches, gum, and sprays. The [place] [employer]'s web site -- www.cancer.org -- is an excellent resource for smokers who are trying to quit, and the [employer] [place] [employer] can help some smokers kick the habit. Above all, don't get discouraged if you aren't able to quit smoking the first time. Nicotine addiction is a hard habit to break. Try something different next time. Develop new strategies, and try again. Many people take several attempts to finally kick the habit. Code(s): F17.210 - Nicotine dependence, cigarettes, uncomplicated (19) Influenza vaccination declined: Code(s): Z28.21 - Immunization not carried out because of patient refusal (20) Pneumococcal vaccination declined: Code(s): Z28.21 - Immunization not carried out because of patient refusal Plan . Orders: Orders UA CC w/rflx Micro + Cult Today R30.0 - Dysuria Comprehensive Anderson. Panel Fast 6 Months E11.8 - Type 2 diabetes mellitus with unspecified complications, E78.2 - Mixed hyperlipidemia, I15.2 - Hypertension secondary to endocrine disorders Lipid Panel 6 Months E11.8 - Type 2 diabetes mellitus with unspecified complications, E78.2 - Mixed hyperlipidemia, I15.2 - Hypertension secondary to endocrine disorders Hemoglobin A1c 6 Months E11.8 - Type 2 diabetes mellitus with unspecified complications, E78.2 - Mixed hyperlipidemia, I15.2 - Hypertension secondary to endocrine disorders Microalbumin, Random (w Creat) 6 Months E11.8 - Type 2 diabetes mellitus with unspecified complications, E78.2 - Mixed hyperlipidemia, I15.2 - Hypertension secondary to endocrine disorders Referrals Psychiatry Outpatient Consultation Service F33.1 - Major depressive disorder, recurrent, moderate, F41.1 - Generalized anxiety disorder Urology Referral N40.0 - Benign prostatic hyperplasia without lower urinary tract symptoms Dermatology Referral D49.2 - Neoplasm of unspecified behavior of bone, soft tissue, and skin Sleep Medicine Referral G47.30 - Sleep apnea, unspecified Medications: Refilled ciprofloxacin HCl 500 mg PO BID 20 tabs 0RF gabapentin 600 mg PO BEDTIME 90 tabs 3RF Discontinued gabapentin Discontinued Reason: Patient Completed Course 100 mg PO TID 30 days 90 caps 0RF Patient Instructions: Health screenings for men You should visit your health care provider regularly, even if you feel healthy. The purpose of these visits is to: Screen for medical issues Assess your risk for future medical problems Encourage a healthy lifestyle Update vaccinations and other preventive care services Help you get to know your provider in case of an illness Information Even if you feel fine, you should still see your provider for regular checkups. These visits can help you avoid problems in the future. For example, the only way to find out if you have high blood pressure is to have it checked regularly. High blood sugar and high cholesterol level also may not have any symptoms in the early stages. Simple blood tests can check for these conditions. There are specific times when you should see your provider or receive specific health screenings. The [place] Preventive Services Task Force publishes a list of recommended screenings. Below are screening guidelines for men ages 40 to 64. BLOOD PRESSURE SCREENING Have your blood pressure checked at least once every year. Watch for blood pressure screenings in your area. Ask your provider if you can stop in to have your blood pressure checked. Ask your provider if you need your blood pressure checked more often if: You have diabetes, heart disease, kidney problems, or are overweight or have certain other health conditions You have a first-degree relative with high blood pressure You are Black Your blood pressure top number is from 120 to 129 mm Hg, or the bottom number is from 70 to 79 mm Hg If the top number is 130 mm Hg or greater or the bottom number is 80 mm Hg or greater, this is considered stage 1 hypertension. Schedule an appointment with your provider to learn how you can lower your blood pressure. Effects of age on blood pressure CHOLESTEROL SCREENING Cholesterol screening should begin at age 35 for men with no known risk factors for coronary heart disease. Repeat cholesterol screening should take place: Every 5 years for men with normal cholesterol levels More often if changes occur in lifestyle (including weight gain and diet) More often if you have diabetes, heart disease, kidney problems, or certain other conditions COLORECTAL CANCER SCREENING If you are under age 45, talk to your provider about getting screened. You may need to be screened if you have a strong family history of colon cancer or polyps. Screening may also be considered if you have risk factors such as a history of inflammatory bowel disease or polyps. If you are age 45 to 75, you should be screened for colorectal cancer. There are several screening tests available: A stool-based fecal occult blood (gFOBT) or fecal immunochemical test (FIT) every year A stool sDNA test every 1 to 3 years Flexible sigmoidoscopy every 5 years or every 10 years with stool testing FIT done every year CT colonography (virtual colonoscopy) every 5 years Colonoscopy every 10 years You may need a colonoscopy more often if you have risk factors for colorectal cancer, such as: Ulcerative colitis A personal or family history of colorectal cancer A history of growths in your colon called adenomatous polyps DENTAL EXAM Go to the dentist once or twice every year for an exam and cleaning. Your dentist will evaluate if you have a need for more frequent visits. DIABETES SCREENING All adults who do not have risk factors for diabetes should be screened starting at age 35 and repeated every 3 years. If you have other risk factors for diabetes, such as a first degree relative with diabetes, overweight or obesity, high blood pressure, prediabetes, or a history of heart disease, you may be tested more often. If you are overweight and have other risk factors, such as high blood pressure and are planning to become , screening is recommended. EYE EXAM Have an eye exam every 2 to 4 years ages 40 to 54 and every 1 to 3 years ages 55 to 64. Your provider may recommend more frequent eye exams if you have vision problems or glaucoma risk. Have an eye exam that includes an examination of your retina (back of your eye) at least every year if you have diabetes. IMMUNIZATIONS Commonly needed vaccines include: Flu shot: get one every year COVID-19 vaccine: ask your provider what is best for you Tetanus-diphtheria and acellular pertussis (Tdap) vaccine: have as one of your tetanus-diphtheria vaccines if you did not receive it as an adolescent Tetanus-diphtheria: have a booster (or Tdap) every 10 years Varicella vaccine: receive 2 doses if you never had chickenpox or the varicella vaccine and were born in 1979 or after Hepatitis B vaccine: receive 2, 3, or 4 doses, depending on your exact circumstances, if you did not receive these as a child or adolescent, until age 59 Shingles (herpes zoster) vaccine: at or after age 50 Ask your provider if you should receive other immunizations, especially if you have certain medical conditions, such as diabetes or are at increased risk for some diseases such as pneumonia. INFECTIOUS DISEASE SCREENING Screening for hepatitis C: all adults ages 18 to 79 should get a one-time test for hepatitis C. Screening for human immunodeficiency virus (HIV): all people ages 15 to 65 should get a one-time test for HIV. Depending on your lifestyle and medical history, you may need to be screened for infections such as syphilis, chlamydia, and other infections. LUNG CANCER SCREENING You should have an annual screening for lung cancer with low-dose computed tomography (LDCT) if: You are age 50 to 80 years AND You have a 20 pack-year smoking history AND You currently smoke or have quit within the past 15 years OSTEOPOROSIS SCREENING If you are age 50 to 64 and have risk factors for osteoporosis, you should discuss screening with your provider. Risk factors can include long-term steroid use, low body weight, smoking, heavy alcohol use, having a fracture after age 50, or a family history of hip fracture or osteoporosis. Osteoporosis PHYSICAL EXAM All adults should visit their provider from time to time, even if they are healthy. The purpose of these visits is to: Screen for diseases Assess risk of future medical problems Encourage a healthy lifestyle Update vaccinations and other preventive care services Maintain a relationship with a provider in case of an illness Your height, weight, and body mass index (BMI) should be checked at every exam. During your exam, your provider may ask you about: Depression and anxiety Diet and exercise Alcohol and tobacco use Safety, such as use of seat belts and smoke detectors Your medicines and risk for interactions PROSTATE CANCER SCREENING If you're 55 through 69 years old, before having the test, talk to your provider about the pros and cons of having a PSA test. Ask about: Whether screening decreases your chance of dying from prostate cancer. Whether there is any harm from prostate cancer screening, such as side effects from testing or overtreatment of cancer when discovered. Whether you have a higher risk of prostate cancer than others. If you are age 55 or younger, screening is not generally recommended. You should talk with your provider about if you have a higher risk for prostate cancer. Ri sk factors include: Having a family history of prostate cancer (especially a brother or father) Being If you choose to be tested, the PSA blood test is repeated over time (yearly or less often), though the best frequency is not known. Prostate examinations are no longer routinely done on men with no symptoms. Prostate cancer SKIN EXAM Your provider may check your skin for signs of skin cancer, especially if you're at high risk. People at high risk include those who have had skin cancer before, have close relatives with skin cancer, or have a weakened immune system. TESTICULAR EXAM The [place] Preventive Services Task Force (USPSTF) now recommends against performing testicular self-exams. Doing testicular self-exams has been shown to have little to no benefit. Quality Reporting (2019) Adult ([facility] 138//) Smoking risk assessment performed?: Yes Patient Tobacco Use Status: Current e veryday Tobacco user Tobacco cessation counseling provided: Yes Items discussed: Nicotine replacement, QuitWorks and Other Depression screening performed: Yes Screen Results: Yes Positive screen Positive Screen Plan: Yes additional evaluation for depression Systolic BP not done?: No Diastolic BP not done?: No BMI screening not done: No Sexual Activity Screening ([facility] 153) Sexually active?: No Immunizations ([facility] 147, 117) Annual Influenza Vaccine: No Flu Vaccine not done: patient reason Measles Antibody Test: No Mumps Antibody Test: No Rubella Antibody Test: No Varicella Antibody Test: No Anti Hepatitis A IgG Antigen test: No Anti Hepatitis B Virus Surface Ab test: No Fall Risk Screening ([facility] 139) Last assessed Fall Risk: 04/09/25 Fall risk assessment: No Falls in past year Dementia Assessment ([facility] 149) Cognitive assessment recorded: Yes Assessment of cognition with standardized tool: Yes (09/08 on 6 CIT ) Depression/Bipolar (159/160/161/177) PHQ-9: Total score: 0 Ophthalmol:Cataracts Visual Acuity (133) Visual acuity exam performed: Yes (see results) Coding Level of Care Code Medicare Subsequent (G0439) Est Pt Level 4 (07870) Diagnoses Encounter for subsequent annual wellness visit (AWV) in Medicare patient Z00.00 Moderate episode of recurrent major depressive disorder F33.1 Major depression episode severity: moderate DOMONIQUE (generalized anxiety disorder) F41.1 Benign prostatic hyperplasia with nocturia N40.1; R35.1 Lower urinary tract symptom presence: symptoms present Lower urinary tract symptom detail: nocturia Atypical squamoproliferative skin lesion D49.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21 Pneumococcal vaccination declined Z28.21 CPT Codes Advance Care Planning - Time spent: 16-45 minutes ([id number]) EKG - CPT: 08632-[id number], Complete ([id number]) Vision Screening - Vision Screenin - Vision Screening ([id number]) Additional Codes PHQ-9 - 85546 - PHQ-9 Billing: Yes ([id number]) Advance Care Planning Advance Care Planning discussion: Exists, not on file Date of discussion: 04/09/25 Who was present: self Forms completed: Health Care Proxy, MOLST and Living will Time spent: 16-45 minutes Actual minutes spent: 16
[2025-04-09 10:12] VITALS: BP 126/66; PULSE 66; RESP 12; TEMP 36.2; O2SAT 96; BMI 27.2
== END 2025-04-09 11:19 | disposition home or self-care (01) ==
PROVIDERS: PCP Nurse Practitioner Family; Visit Provider Nurse Practitioner Family
DX: Z00.00 Encounter for general adult medical examination without abnormal findings (principal); N40.1 Benign prostatic hyperplasia with lower urinary tract symptoms; R35.1 Nocturia; F33.1 Major depressive disorder, recurrent, moderate; E11.8 Type 2 diabetes mellitus with unspecified complications; F10.21 Alcohol dependence, in remission; J43.1 Panlobular emphysema; D49.2 Neoplasm of unspecified behavior of bone, soft tissue, and skin; I25.10 Atherosclerotic heart disease of native coronary artery without angina pectoris; I25.84 Coronary atherosclerosis due to calcified coronary lesion; I15.2 Hypertension secondary to endocrine disorders; E78.2 Mixed hyperlipidemia